=== PATIENT | female | born 1985 | race Caucasian/White ===

== ENCOUNTER 2025-04-27 15:19 | Outpatient (AMB) | payer OTHER, SELFPAY ==
--- OUTSIDE RECORDS SUMMARY | 2025-01-26 13:15 | XMS_ITS ---
Author Organization Tong Liao III, MD Address [address] [place] [address] DR VILLALPANDORACHELALYSSA [address] Care Team Providers Care Toolroom Checker Name Role Phone Dr. Tong Liao III [...] Date Provider Diagnosis Tong Liao III, MD [address] [place] [address] [place] [address] 01/26/2025 Tong Liao Essential hypertensi on I10 [...] Next Appt Details Provider Name:Tong Liao , 03/27/2026 09:30:00 AM, [address] [place] [address] [address], [place], [address], Progress Notes * LeeMIHAELARONI MiriDOB:02/1986 (39 yo F)Acc No.[id number]:01/26/2025 Progress Notes Patient: Rene Miri DEL VALLE Provider: Gretchen Liao MD :1985 A ge:39 Y S ex:Female Date:01/26/2025 Address:[address] [place] [address], [place], [id number] Subjective: * Chief Complaints: * 1 . [...] f oreign body removed left wrist , [id number] , colposcopy and Cone biopsy of cervix [...] no sisters. She has no children. 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 She is single but she is engaged [...] with the patient * Allergies: F tiarra, Truvada. Objective: * Vitals: * Examination: G eneral [...] 01/26/2025 Generated for Judy buckley/Yazmin/Missyitting on: 1 06:54 PM EDT History and Physical Notes * HPI (History [...]
--- OUTSIDE RECORDS SUMMARY | 2025-02-09 13:00 | XMS_ITS ---
Author Organization Tong Liao III, MD Address [address] [place] [address] DR VILLALPANDORACHELALYSSA [address] Care Team Providers Care Supervisor Lead Refinery Name Role Phone Dr. Tong Liao III Primary Care Provider [phone] Allergies Allergen (clinical drug ingredient) Drug/Non Drug [...] Date Provider Diagnosis Tong Liao III, MD [address] [place] [address] [place] [address] 02/09/2025 Tong Liao Essential hypertensi on I10 [...] Provider Name:Tong Liao , 03/27/2026 09:30:00 AM, [address] [place] [address] [address], [place], [address], Progress Notes * LeeMIHAELARONI DanielledebbieDOB:02/1986 (39 yo F)Acc No.[id number]:02/09/2025 Progress Notes Patient: Rene Miri DEL VALLE Provider: Gretchen Liao MD :1985 A ge:39 Y S ex:Female Date:02/09/2025 Address:[address] [place] [address], [place], [id number] Subjective: * Chief Complaints: * 1 . [...] f oreign body removed left wrist , [id number] , colposcopy and Cone biopsy of cervix [...] no sisters. She has no children. Her pupil personnel services director is in the process of testing her [...] children. 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 She is single but she is [...] 0 02/09/2025 Generated for Judy buckley/Yazmin/Missyitting on: 1 06:55 PM EDT History and Physical Notes * [...]
--- OUTSIDE RECORDS SUMMARY | 2025-03-07 07:16 | XMS_ITS ---
Author Organization Tong Liao III, MD Address [address] [place] [address] [place] [address] Care Team Providers Care Sr. Unix System Administrator Name Role Phone Dr. Tong Liao III [...] Date Provider Diagnosis Tong Liao III, MD [address] [place] [address] [place] [address] 03/07/2025 Tong Liao Essential hypertensi on I10 [...] Provider Name:Tong Liao , 03/27/2026 09:30:00 AM, [address] [place] [address] [place], [address], Progress Notes * Miri SOLERDOB:02/1986 (39 yo F)Acc No.[id number]:03/07/2025 Patient: Miri JAQUEZ :1985 A ge:39 Y S ex:Female Address:[address] [place] [address], [place], [address] * Refills Refill Levothyroxine Sodium Tablet, 150 MCG, Orally, 90 Tablet, 1 tablet in the morning on an empty stomach, Once a day, 90 days, Refills=3 * true * Date: Generated for Judy buckley/Yazmin/Missyitting on: 06:54 PM EDT
--- OUTSIDE RECORDS SUMMARY | 2025-03-24 05:00 | XMS_ITS ---
Author Organization Tong Liao III, MD Address [address] [place] [address] [place] [address] Care Team Providers Care Partner Manager Name Role Phone Dr. Tong Liao [...] Provider Speciality Internal edicine Referred Provider Neurology [facility] Referred Provider Specialty Neurology General Notes 03/28/2025 11:06:09 AM > Faxed referral and progress note Referral Priority Routine Reason Evaluate and Treat Hypothyroidism Right Thyroid Nodule Diagnosis 1 Acquired hypothyroid ism (E03.9) Diagnosis 2 Right thyroid nodule (E04.1) Referral Organization Tong Liao III, MD Referring Provider First Name Tong Referring Provider Last Name Liao Referring Provider Speciality Internal edicine Referred Provider [facility] Referred Provider Specialty Endocrinolog y General Notes 03/28/2025 11:05:37 AM > Faxed referral with progress note, 03/30/2025 03:21:29 PM > [facility] Endocrine requesting most recent labs and US. Labs and US were sent to ATTN: Orestes Referral Priority Routine REASON FOR VISIT Annual Exam Medications Medication [...] Provider Diagnosis Tong Liao III, MD [address] [place] [address] DR [place], [place] [address] 03/24/2025 Tong Liao Essential hypertensi on I10 [...] cancer (ICD-10 - Z80.3) She says the lpn rn is in the process of ordering testing [...] 03/24/2025, Evaluate and Treat Chronic Constant Migraine, [facility] 03/24/2025 03/24/2025, Evaluate and Treat Hypothyroidism Right Thyroid Nodule, [facility] Next Appt Details Follow Up: 4 Weeks, Reason: Telehealth Provider Name:Tong Liao , 03/27/2026 09:30:00 AM, [address] [place] [address] [address], [place], [address], Progress Notes * Miri SOLERDOB:02/1986 (39 yo F)Acc No.[id number]:03/24/2025 Progress Notes Patient: Miri JAQUEZ Provider: Gretchen Liao MD :1985 A ge:39 Y S ex:Female Date:03/24/2025 Address:[address] [place] [address], [facility] Subjective: * Chief Complaints: * A nnual [...] enies. * Medical History: * Surgical History: f oreign body removed left wrist [id number] colposcopy and Cone biopsy of cervix for [...] no sisters. She has no children. Her lpn rn is in the process of testing her [...] reconciled with the patient * Allergies: F Brendauvadajarrett[Allergies Verified] Objective: * Vitals: H t: 64, [...] - Z80.3 N otes :She says the lpn rn is in the process of ordering testing [...] (Free Thyroxine) Referral To:[facility] Endocr[facility] Reason:Evaluate and Treat Hypothyroidism Right Thyroid Nodule 3. O besity (BMI 30-39.9) L AB: PROFILE, RANDOM (COMPREHENSIVE METABOLIC) L AB: TSH (THYROID STIMULATING HORMONE) L AB: CBC w DIFF L AB: Free T4 (Free Thyroxine) 4. O thers Referral To:[facility] Neurology Reason:Evaluate and Treat Chronic Constant Migraine Referral To:[facility] Endocrinology Reason:Evaluate and Treat Hypothyroidism Right [...] 03/24/2025 Generated for Judy buckley/Yazmin/eTransmitting on: 1 06:55 PM EDT History and [...] Provider Not es 03/24/2025 Tong Liao Neurology [facility] Evaluate and Treat Chronic Constant Migraine 03/24/2025 Tong Liao [facility] Evaluate and Treat Hypothyroidism Right Thyroid Nodule
--- OUTSIDE RECORDS SUMMARY | 2025-04-21 13:00 | XMS_ITS ---
Author Organization Tong Liao III, MD Address [address] [place] [address] [address] [facility] [place] [address] Care Team Providers Care Stock Cutter Name Role Phone Dr. Tong Liao III Primary Care Provider REASON FOR VISIT Follow up Social History Sex Assigned At : Social History Observation Description Sex Assigned At Female Encounters Encounter Location Date Provider Diagnosis Tong Liao III, MD [address] [place] [address] [place] [address] 04/21/2025 Tong Liao Plan Of Treatment Next Appt Details Provider Name:Tong Liao , 03/27/2026 09:30:00 AM, [address] [place] [address] [place], [address], Progress Notes * Miri SOLERDOB:02/1986 (39 yo F)Acc No.[id number]:04/21/2025 Patient: Rene DEL VALLEMiri Provider: Gretchen Liao MD :1985 A ge:39 Y S ex:Female Date:04/21/2025 Address:[address], [place] Subjective: * Chief Complaints: * 1 . Follow up. * Medical History: Objective: * Vitals: Assessment: Plan: * Treatment: * Images: * The named appointment provid er may or may not be the originator of this progress note, and it is not deemed complete until electronically signed by the appointment provider. Sign off status: Pending * Provider: Gretchen Liao MD Date: Generated for Judy buckley/Yazmin/Ruslan on: 06:55 PM EDT
--- NOTE | 2025-04-27 15:23 | MHC.OFFVIS ---
Vital Signs 04/27/25 15:26 Height 5 ft 4 in Weight 194 lb 0.108 oz BMI 33.3 BP 122/72 Blood Pressure Location Lt brachial Position Sitting Pulse 72 Pulse Source Pulse Oximeter Pulse Oximetry (%) 99 Oxygen Delivery Method Room Air Intake Visit Reasons: hypothyroidism, right thyroid nodule Intake Note: Patient is here for hypothyroidism and right thyroid nodule. Racing Secretary And Handicapper Required: No Accompanied by: Self / Same As Patient Allergies metronidazole (Flagyl) Allergy (Unknown, Verified 04/27/25 15:28) pancreatitis Truvada Adverse Reaction (Unknown, Uncoded 04/27/25 15:28) vomiting Medication List - Last Reconciled 04/27/25 by Dot Arzate MD hydrochlorothiazide 25 mg PO QAM levothyroxine 150 mcg PO QAM sumatriptan succinate mg PO HPI Comments Details: 39-year-old female coming in today for initial evaluation of hypothyroidism and solitary right-sided nodule.. Hypothyroidism diagnosed in 2014 , has been on levothyroxine since then. Ultrasound thyroid 09/30/2024 showed a solitary right mid lobe 0.6 cm solid hypoechoic TR 4 lesion. Does not meet criteria for FNA or follow up. was done because she was having dysphagia. apparenlty has barium swallow earlier in 2024 whihc was normal per patient . still has intermittent dysphagia. Feels neck pressure. no voice chnages. No TFTs in the system. Currently on levothyroxine 150 mcg daily. was reduced from 200 mcg approx 3 weeks ago. takes it between 8 and 10 AM , takes with with HCTZ and propranolol. tries to separate it from food but some days she works overnight so no fixed schedule. Endorses she mostly takes it. Patient currently denies heat or cold intolerance, diarrhea or constipation, hair loss, anxiety, weight changes, mood changes, low energy, changes in appearance of eyes or vision changes, tremors, increased diaphoresis or dry skin. ?intermittent palpitations Patient denies any history of childhood neck radiation. Denies having ever used lithium, amiodarone or biotin supplements. Patient denies any family history of thyroid cancer. Brother has hypothyroidism Physical exam General: sitting comfortably in no acute distress HEENT: normocephalic/atraumatic, Neck: supple, symmetrical, no thyromegaly , no dorsocervical or supraclavicular fat pads Cardiac: normal heart sounds Pulm: normal breath sounds B/L, no added breath sounds Abd: not distended [facility] Medical History (Updated 04/27/25 @ 15:49 by Dot Arzate MD) Right thyroid nodule Hypothyroidism Surgical History H/O colonoscopy H/O left wrist surgery History of delivery Family History Mother HTN (hypertension), benign CVD (cardiovascular disease) Cancer Father CVD (cardiovascular disease) HTN (hypertension), benign Social History Alcohol intake: current Alcohol intake frequency: does not drink Patient Tobacco Use Status: Former Tobacco user Physical Exam Vital Signs: BMI result Body Mass Index 33.3 Assessment & Plan Assessment & Plan (1) Hypothyroidism: Code(s): E03.9 - Hypothyroidism, unspecified Category: Medical Qualifiers: 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 Hypothyroidism diagnosed in 2014 , has been on levothyroxine since then. No TFTs in the system. Currently on levothyroxine 150 mcg daily. was reduced from 200 mcg approx 3 weeks ago. takes it between 8 and 10 AM , takes with with HCTZ and propranolol. tries to separate it from food but some days she works overnight so no fixed schedule. Endorses she mostly takes it. At this point we will repeat her labs in about 3 weeks which would be 6 weeks since dose change. Plan: -continue levothyroxine 150 mcg daily -ordered TSH, free T4, TPO antibody levels to be done in another 3 weeks (2) Right thyroid nodule: Code(s): E04.1 - Nontoxic single thyroid nodule Category: Medical Plan: 39-year-old female with no family history of thyroid cancer with no personal history of head or neck radiation, with a new diagnosis of right-sided nodule. Ultrasound thyroid 09/30/2024 showed a solitary right mid lobe 0.6 cm solid hypoechoic TR 4 lesion. Does not meet criteria for FNA or follow up. was done because she was having dysphagia. apparenlty has barium swallow earlier in 2024 whihc was normal per patient . still has intermittent dysphagia. Feels neck pressure. no voice chnages. I explained that it is common to have thyroid nodules. About 95% of the time these nodules are benign. However if the nodule is > 1 cm in size or suspicious on ultrasound then a fine need aspiration biopsy is recommended. At this point based on the report no need for follow up for this nodule. 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
[2025-04-27 15:26] VITALS: BP 122/72; PULSE 72; O2SAT 99; BMI 33.3
--- OUTSIDE RECORDS SUMMARY | 2025-04-27 18:54 | XMS_ITS | Clinical Summary ---
Author Organization [facility] Address [address] [place] [address] Care Team Providers Care Slubber Tender Name Role Phone Tong Liao MD Primary Care Provider [phone] Allergies Active Allergy Reactions Criticality Noted Date Comments Emtricitabine-Tenofovir Df Unknown/Patie nt and Family Unable to Define Medium 08/10/2024 Metronidazole Other (See Comments),Unknown/Patient and Family Unable to Define Medium 08/10/2024 Medications levothyroxine (SYNTHROID, LEVOTHROID) 200 MCG tablet Take 200 mcg by mouth. 4 Active SUMAtriptan (IMITREX) 100 MG tablet TAKE 1 TABLET BY MOUTH TWICE DAILY AT LEAST 2 HOURS BETWEEN EACH DOSE 4 Active Semaglutide-[place]in[place] ght Management (Wegovy) 0.25 MG/0.5ML Solution Auto-injector 0.5 mL Subcutaneous once a week for four weeks 4 Active hydroCHLOROthia zide (HYDRODIURIL) 25 MG tablet Take 1 tablet by mouth every morning. Active methadone (DOLOPHINE) 10 mg/5 mL oral solution 105 ml as needed Orally Once a day Active famotidine (PEPCID) 40 MG tabletIndicatio ns:Laryngophary ngeal reflux Take 1 tablet (40 mg total) by mouth nightly. 30 tablet 3 5 Active Active Problems Problem Noted Date Diagnosed Date At risk for sexually transmi tted disease due to partner with HIV 08/10/2024 Chronic posttraumatic stress disorder 08/10/2024 Chronic recurrent major depressive disorder 07/15 Heroin dependence 08/10/2024 HTN (hypertension) 08/10/2024 Hypothyroidism 08/10/2024 Severe obesity (BMI 35.0-39.9) with comorbidity 08/10/2024 Hepatitis C antibody test positive 10/11/2013 Overview (08/10/2024): +result also on IOB bloodwork of 05/28/2022 Immunizations Immunization Administration Dates Next Due DT 02/21/1987,1986,1986 DTaP 03/17/1991,06/19/1988 Hep B, Adolescent or Pediatric 11/16/1998,1998,06/15/1998 IPV 03/17/1991, 8,02/21/1987,1986,1986 Influenza Virus Trivalent Sp lit Vaccine (MDV) IM 03/28/2018,03/23/2017 Influenza Whole 04/07/2019,03/20/2016 MMR 02/24/1998,11/22/1987 Td, Unspecified 03/30/1999 Tdap 09/06/2022,12/02/2018 Social History Tobacco Use Types Packs/Day Years Used Date Smoking Tobacco: Former Cigarettes Passive Smoke Exposure: Past Smokeless Tobacco: Never Tobacco Cessation:Counseling Given: Not Answered Alcohol Use Standard Drinks/Week Comments Never 0 (1 standard drink = 0.6 oz pur e alcohol) Comments Unknown Sex and Gender Information Value Date Recorded Sex Assigned at Female 08/02/2024 10:46 AM EST Legal Sex Female 10:01 AM EST Gender Identity Female 08/02/2024 10:46 AM EST Sexual Orientation Choose not to disclose 2024 10:46 AM EST Last Filed Vital Signs Vital Sign Reading Time Taken Comments Blood Pressure - - Pulse - - Temperature - - Respiratory Rate - - Oxygen Saturation - - Inhaled Oxygen Concentration - - Weight 89.8 kg (198 lb) 08/10/2024 10:31 AM EST Height 162.6 cm (5' 4 ) 08/10/2024 10:31 AM EST Body Mass Index 33.99 08/10/2024 10:31 AM EST Plan of Treatment Health Maintenance Due Date Last Done Comments Hepatitis C Virus Screening 1986 HIV Screening 1999 Pap Smear (Ages 21-65) 2007 Influenza Vaccine 02/11/2025 04/07/2019, , 03/23/2017, Additional history exists COVID-19 Vaccine (2024- season) 2025 06/28/2021, 08/07/2020, 07/17/2020 DTaP/Tdap/Td Vaccines (8 - Td or Tdap) 09/06/2032 09/06/2022, 12/02/2018, 03/30/1999, Additional history exists Hepatitis B Vaccines Completed 11/16/1998, 07/20/1998, 06/15/1998 HPV Vaccines (No Doses Required) Completed Pneumococcal Vaccine: Pediatric (0-5 Years) and At-Risk Patients (6 to 49 Years) Aged Out No longer eligible based on patient's age to complete this topic Insurance Care Teams Slubber Tender Relationship Specialty Start Date End Date Tong Liao MD [address] [place] [id number] PCP - General 08/10/24
--- OUTSIDE RECORDS SUMMARY | 2025-04-27 18:55 | XMS_ITS ---
Author Name [facility] Organization Unknown History of Medication Use Medication Directions Dispensed Refills Start Date End Date Stat us famotidine (PEPCID) 40 MG tablet Take 1 tablet (40 mg total) by mouth nightly. 08/10/2024 active SUMAtriptan (IMITREX) 100 MG tablet TAKE 1 TABLET BY MOUTH TWICE DAILY AT LEAST 2 HOURS BETWEEN EACH DOSE 06/21/2024 active levothyroxine (SYNTHROID, LEVOTHROID) 200 MCG tablet Take 200 mcg by mouth. 05/29/2024 active Semaglutide-Weight Management (Wegovy) 0.25 MG/0.5ML Solution Auto-injector 0.5 mL Subcutaneous once a week for four weeks 11/18/2023 active hydroCHLOROthiazide (HYDRODIURIL) 25 MG tablet Take 1 tablet by mouth every morning. active methadone (DOLOPHINE) 10 mg/5 mL oral solution 105 ml as needed Orally Once a day active Allergies Allergen Reaction Severity Comment Documented Date Source Statu s METRONIDAZOLE UNKNOWN/PATIENT AND FAMILY UNABLE TO DEFINE 08/10/2024 [facility] active EMTRICITABINE-TENOFOVI R DF UNKNOWN/PATIENT AND FAMILY UNABLE TO DEFINE [facility] Problems Problem Status Onset Date Problem Type Date of Resoluti on Source Heroin dependence active 2024-08-10 ProblemAct [facility] Chronic posttraumatic stress disorder active 2024-08-10 ProblemAct [facility] At risk for sexually transmitted disease due to partner with HIV active 2024-08-10 ProblemAct [facility] HTN (hypertension) active 2024-08-10 ProblemAct [facility] Hypothyroidism active 2024-08-[address] Hepatitis C antibody test positive active 2013-10-11 ProblemAct [facility] Chronic recurrent major depressive disorder active 2024-08-10 ProblemAct [facility] Severe obesity (BMI 35.0-39.9) with comorbidity active 2024-08-10 ProblemAct [facility] Immunizations Vaccine Date Source Lot Number Status Tdap 09/06/2022 [facility] [id number] completed Influenza Whole 04/07/2019 [facility] UNK completed [facility]ap 12/02/2018 [id number] Influenza Virus Trivalent Sp lit Vaccine (MDV) IM 03/28/2018 [facility] UNK completed Influenza Virus Trivalent Sp lit Vaccine (MDV) IM 03/23/2017 [facility] [id number] completed Influenza Whole 03/20/2016 [facility] [id number] completed Td, Unspecified 03/30/1999 [facility] UNK completed Hep B, Adolescent or Pediatric 11/16/1998 [facility] UNK completed Hep B, Adolescent or Pediatric 07/20/1998 [facility] UNK completed Hep B, Adolescent or Pediatric 06/15/1998 [facility] UNK completed MMR 02/24/1998 [facility] UNK completed DTaP 03/17/1991 [facility] UNK completed IPV 03/17/1991 [facility] UNK completed DTaP 06/19/1988 [facility] UNK completed IPV 06/19/1988 [facility] UNK completed MMR 11/22/1987 [facility] UNK completed DT 02/21/1987 [facility] UNK completed IPV 02/21/1987 [facility] UNK completed DT 1986 [facility] UNK completed IPV 1986 [facility] UNK completed DT 1986 [facility] UNK completed IPV 1986 [facility] UNK completed Encounters Encounter Type Encounter Reason Primary Diagnosis Location Date Ambulatory Post Nasal Drip Post Nasal Drip [facility] 08/10/2024 Care Team Organization Name Specialty Phone Email Start Date End [facility] 09/22/2024 09/29/2024 [facility] L[facility] 08/10/2024 [facility] 06/28/2024
--- OUTSIDE RECORDS SUMMARY | 2025-04-27 18:55 | XMS_ITS | Patient Health Record ---
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 Tong Liao III [...] Provider Speciality Internal edicine Referred Provider Neurology [facility] Referred Provider Specialty Neurology General Notes 03/28/2025 11:06:09 AM > Faxed referral and progress note Referral Priority Routine Reason Evaluate and Treat Hypothyroidism Right Thyroid Nodule Diagnosis 1 Acquired hypothyroid ism (E03.9) Diagnosis 2 Right thyroid nodule (E04.1) Referral Organization Tong Liao III, MD Referring Provider First Name Tong Referring Provider Last Name Keshawn Referring Provider Speciality Internal edicine Referred Provider [facility] Referred Provider Specialty Endocrinolog y General Notes 03/28/2025 11:05:37 AM > Faxed referral with progress note, 03/30/2025 03:21:29 PM > [facility] requesting most recent labs and US. Labs and US were sent to ATTN: Ramjellys Referral Priority Routine Medications Medication SIG (Take, Route, Frequency, Duration) Notes Start Date End Date Status Propranolol HCl 10 MG 1 tablet on an emp ty stomach Orally every 12 hrs for 30 days 03/24/2025 Active SUMAtriptan Succinate 100 MG 1 TABLET OR ALLY TWICE DAILY AT LEAST 2 HOURS BETWEEN EACH DOSE Active Multivitamin - 1 tablet Orally Once a day 01/22/2023 Active Levothyroxine Sodium 150 MCG 1 tablet in the morning on an empty stomach Orally Once a day 03/25/2024 Active hydroCHLOROthiazide 25 MG TAKE 1 TABLET BY MOUTH EVERY MORNING Active Famotidine 10 MG 1 tablet as needed Orally Twice a day 01/22/2023 Active Immunizations Vaccine Route Administration Date Status Comme nts Tdap Unknown 09/06/2022 Administered Influenza, quad Unknown 03/20/2016 Administered HPV Unknown 12/12/2016 Administered COVID PFIZER Unknown 08/07/2020 Administered MMR Unknown 12/12/2016 Administered COVID PFIZER Unknown 07/17/2020 Administered COVID- 19 Vaccine Unknown 06/28/2021 Administered Influenza, quad Unknown 04/04/2020 Administered Social History Tobacco Use: Social History Observation [...] ast year? No Points 0 Interpretation Negative Problems Problem Type SNOMED Code ICD Code Onset Dates Problem Status W/U Status Risk Notes Problem 4784887 Former smoker (Z87.891) Active confirmed We discussed her strategy for relapse prevention in times of stress and illness. She seems motivated not to smoke. 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 We reviewed her weight loss strategy. We made a plan to lose weight at a rate of one half of a pound per week through a diet restricted in fat carbohydrates and sodium combined with regular physical activity. Problem 259921761 Acquired hypothyroidism (E03.9) Active confirmed She will now begin the 150 mcg dose. Thyroid function tests will be checked in the near future. Problem 16518651 Essential hypertension (I10) Active confirmed She is tolerating the losartan well and will return in the near future to check her blood pressure.Her systolic blood pressure slightly high. She will return to the office in near future to recheck this. If necessary her medications will be adjusted. 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 Problem 075956325 Chronic migraine with aura without status migrainosus, not intractable (G43.E09) Active confirmed The requested medication will be reviewed. Problem 212916055 Right thyroid nodule (E04.1) Active confirmed She has a 6 mm right thyroid nodule which is being observed by endocrinology . It is not painful when she is free of symptoms. Vital Signs Heart Rate 89 /min 03/24/2025 Temperature 99.0 degrees Fahrenheit 03/24/2025 Blood pressure diastolic 77 mm Hg 03/24/2025 Height 64 in 03/24/2025 Blood pressure systolic 141 mm Hg 03/24/2025 Weight 189 lbs 03/24/2025 BMI 32.44 kg/m2 03/24/2025 Encounters Encounter Location Date Provider Diagnosis Tong Liao III, MD [address] [place] [address] [place] [address] 06/29/2024 Tong Liao Essential hypertensi on I10 ; Acquired hypothyroidism E03.9 ; Obesity (BMI 30-39.9) E66.9 ; Former smoker Z87.891 and 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 Tong Liao III, MD [address] [place] [address] [place] [address] 08/25/2024 Tong Liao Essential hypertensi on I10 ; Chronic migraine with aura without status migrainosus, not intractable G43.E09 ; Acquired hypothyroidism E03.9 ; Obesity (BMI 30-39.9) E66.9 ; Former smoker Z87.891 and 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 Tong Liao III, MD [address] [place] [address] [place] [address] 11/19/2024 Tong Liao Essential hypertensi on I10 ; Right thyroid nodule E04.1 ; Acquired hypothyroidism E03.9 ; Obesity (BMI 30-39.9) E66.9 and Former smoker Z87.891 Tong Liao III, MD [address] [place] [address] [place] [address] 03/24/2025 Tong Liao Essential hypertensi on I10 ; Acquired hypothyroidism E03.9 ; Obesity (BMI 30-39.9) E66.9 ; Family history of breast cancer Z80.3 ; History of intravenous drug use in remission Z87.898 ; Former smoker Z87.891 and 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 Tong Liao III, MD [address] [place] [address] [place] [address] 09/08/2024 Tong Liao III, MD [address] [place] [address] [place] [address] 11/17/2024 Tong Liao III, MD [address] [place] [address] [place] [address] 03/07/2025 Tong Liao Essential hypertensi on I10 Assessments Encounter Date Diagnosis (ICD Code) Assessment Notes Treat ment Notes Treatment Clinical Notes 06/29/2024 Acquired hypothyroidism (ICD-10 - E03.9) She has been compliant with her medication. Thyroid function tests Her free T4 to be 1.9. Her dose of levothyroxine was reduced from 200 down to 150 mcg. 06/29/2024 Essential hypertension (ICD-10 - I10) She is tolerating the losartan well and will return in the near future to check her blood pressure. 08/25/2024 Essential hypertension (ICD-10 - I10) She is tolerating the losartan well and will return in the near future to check her blood pressure. 08/25/2024 Chronic migraine wit h aura without status migrainosus, not intractable (ICD-10 - G43.E09) The requested medication will be reviewed. 11/19/2024 Essential hypertension (ICD-10 - I10) She is tolerating the losartan well and will return in the near future to check her blood pressure. 11/19/2024 Right thyroid nodule (ICD-10 - E04.1) She has a 6 mm right thyroid nodule which is being observed by endocrinology. It is not painful when she is free of symptoms. 03/24/2025 Acquired hypothyroidism (ICD-10 - E03.9) She will now begin the 150 mcg dose. Thyroid function tests will be checked in the near future. 03/24/2025 Essential hypertension (ICD-10 - I10) She is tolerating the losartan well and will return in the near future to check her blood pressure.Her systolic blood pressure slightly high. She will return to the office in near future to recheck this. If necessary her medications will be adjusted. 03/07/2025 Essential hypertension (ICD-10 - I10) She is tolerating the losartan well and will return in the near future to check her blood pressure. 06/29/2024 Obesity (BMI 30-39.9 ) (ICD-10 - E66.9) We have reviewed her diet and nutrition. We made a plan to lose weight at a rate of one half of a pound per week. 08/25/2024 Acquired hypothyroidism (ICD-10 - E03.9) She has been compliant with her medication. Thyroid function tests Her free T4 to be 1.9. Her dose of levothyroxine was reduced from 200 down to 150 mcg. 11/19/2024 Acquired hypothyroidism (ICD-10 - E03.9) She says she has been compliant with her medication and feels well. Her thyroid function tests are being managed by her uniform maker. She denies any constipation or diarrhea or tachycardia. Her voice remains within normal limits. 03/24/2025 Obesity (BMI 30-39.9 ) (ICD-10 - E66.9) She has lost 7 pounds in her body mass index is 32. We reviewed her weight loss strategy. We made a plan to lose weight at a rate of one half of a pound per week through a diet restricted in fat carbohydrates and sodium combined with regular physical activity. 06/29/2024 Former smoker (ICD-1 0 - Z87.891) We discussed her strategy for relapse prevention in times of stress and illness. She seems motivated not to smoke. 08/25/2024 Obesity (BMI 30-39.9 ) (ICD-10 - E66.9) We have reviewed her diet and nutrition. We made a plan to lose weight at a rate of one half of a pound per week. 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 The facility plans to end her methadone maintenance therapy about a month from now. She was quite concerned today that she would be given comfort medications when she no longer had the methadone. By this she meant medication to counteract any side effects or withdrawal. She anticipates significant adverse symptoms when she stops methadone. Medications used in this circumstance would be Benadryl, doxepin, clonidine, ondansetron and others. I assured her we would use noncontrolled substances to try to control any significant symptom she had. 08/25/2024 Former smoker (ICD-1 0 - Z87.891) We discussed her strategy for relapse prevention in times of stress and illness. She seems motivated not to smoke. 11/19/2024 Former smoker (ICD-1 0 - Z87.891) We discussed her strategy for relapse prevention in times of stress and illness. She seems motivated not to smoke. 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 08/25/2024 Methadone maintenanc e therapy patient (ICD-10 - F11.20) He continues on the methadone and is doing well.She is down to 9 mg a day. The facility plans to end her methadone maintenance therapy about a month from now. She was quite concerned today that she would be given comfort medications when she no longer had the methadone. By this she meant medication to counteract any side effects or withdrawal. She anticipates significant adverse symptoms when she stops methadone. Medications used in this circumstance would be Benadryl, doxepin, clonidine, ondansetron and others. I assured her we would use noncontrolled substances to try to control any significant symptom she had. 03/24/2025 Former smoker (ICD-1 0 - Z87.891) We discussed her strategy for relapse prevention in times of stress and illness. She seems motivated not to smoke. 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 Plan Of Treatment Pending Test Test Name Order Date PROFILE, FASTING (COMPREHENSIVE METABOLI C) 12/31/2019 PROFILE, FASTING (COMPREHENSIVE METABOLI C) 01/26/2024 PROFILE, FASTING (COMPREHENSIVE METABOLI C) 01/03/2022 PROFILE, FASTING (COMPREHENSIVE METABOLI C) 06/11/2023 PROFILE, FASTING (COMPREHENSIVE METABOLI C) 11/19/2024 PROFILE, FASTING (COMPREHENSIVE METABOLI C) 07/19/2020 PROFILE, FASTING (COMPREHENSIVE METABOLI C) 04/18/2020 PROFILE, RANDOM (COMPREHENSIVE METABOLIC ) 01/22/2023 PROFILE, RANDOM (COMPREHENSIVE METABOLIC ) 03/06/2023 PROFILE, RANDOM (COMPREHENSIVE METABOLIC ) 11/10/2019 PROFILE, RANDOM (COMPREHENSIVE METABOLIC ) 01/16/2022 PROFILE, RANDOM (COMPREHENSIVE METABOLIC ) 03/24/2025 PROFILE, RANDOM (COMPREHENSIVE METABOLIC ) 02/12/2023 LIPID PANEL 07/19/2020 LIPID PANEL 04/18/2020 LIPID PANEL 12/31/2019 FREE T4 (FT4) 01/22/2023 FREE T4 (FT4) 07/19/2020 FREE T4 (FT4) 04/18/2020 FREE T4 (FT4) 03/06/2023 FREE T4 (FT4) 01/03/2022 FREE T4 (FT4) 11/10/2019 FREE T4 (FT4) 02/12/2023 TSH (THYROID STIMULATING HORMONE) 2022 TSH (THYROID STIMULATING HORMONE) 2022 TSH (THYROID STIMULATING HORMONE) 2020 TSH (THYROID STIMULATING HORMONE) 2019 TSH (THYROID STIMULATING HORMONE) 2023 TSH (THYROID STIMULATING HORMONE) 2022 TSH (THYROID STIMULATING HORMONE) 2022 TSH (THYROID STIMULATING HORMONE) 2021 TSH (THYROID STIMULATING HORMONE) 2019 TSH (THYROID STIMULATING HORMONE) 2024 TSH (THYROID STIMULATING HORMONE) 2024 CBC w DIFF 01/03/2022 CBC w DIFF 11/10/2019 CBC w DIFF 03/24/2025 CBC w DIFF 11/19/2024 CBC w DIFF 02/12/2023 CBC w DIFF 01/22/2023 CBC w DIFF 07/19/2020 CBC w DIFF 04/18/2020 CBC w DIFF 01/16/2022 CBC w DIFF 12/31/2019 CBC w DIFF 06/11/2023 CBC w DIFF 03/06/2023 SED RATE (ESR) 11/10/2019 SED RATE (ESR) 11/17/2020 MONO TEST (HETEROPHILE AB) 01/16/2022 SPUTUM CULTURE AND GRAM STAIN 01/16/2022 XR BARIUM SWALLOW-ESOPHAGUS 04/22/2024 XR HAND RT 08/10/2019 CBC WITH AUTO DIFF 01/26/2024 Lipid Panel 01/26/2024 Lipid Panel 06/11/2023 Lipid Panel 01/03/2022 Lipid Panel 11/19/2024 Vitamin D 25-OH Total 01/03/2022 Free T4 (Free Thyroxine) 01/26/2024 Free T4 (Free Thyroxine) 06/11/2023 Free T4 (Free Thyroxine) 03/24/2025 Free T4 (Free Thyroxine) 11/19/2024 HIV Ab/Ag 01/26/2024 Next Appt Details Provider Name:Tong Liao , 03/27/2026 09:30:00 AM, [address] [place] [address] DR, MARISOL [address]ana, [place], [address], Insurance Providers Payer Name Payer Address Payer Phone Subscriber Number Group Number Insured Name Patient Relationship to Insured Coverage Start Date Coverage End Date [facility] [address] [facility] [phone] [id number] Miri Max Self - patient is the insured Medical (General) History Medical History History ICD Code Hypertension I10 Hypothyroidism E03.9 Abnormal cervical Papanicolaou smear, un specified abnormal pap finding R87.619 Chronic constipation K59.00 IVDU in the past now recovering methadone maintenance essential hypertension fracture right elbow maternal history of breast cancer obesity HIV-positive fiance right hand pain Surgical History Surgery Date(Month/Year) No history 11/27/2022 colposcopy and Cone biopsy of cervix for abnormal Pap smear [id number] foreign body removed left wrist Hospitalization History Reason Date(Month/Year) No history
--- OUTSIDE RECORDS SUMMARY | 2025-04-27 18:56 | XMS_ITS | Data Portability ---
Author Organization [place] [facility], [facility] Address [address] [place] [address] Assessment No assessment recorded. Plan of Treatment Reminders Order Date Submit Date Provider Last Modified By Organization Details Last Modified Time Details Appointments None record ed. Lab None record ed. Referral None record ed. Procedures None record ed. Surgeries None record ed. Imaging None record ed. Medication Orders None record ed. Patient TargetsNo targets recorded. Patient InstructionsNo instructions recorded. Reason for Referral None Reported. Medical Equipment None Reported. Vitals None Recorded Social History None recorded. Functional Status None recorded. Mental Status None recorded. Family History Nothing Reported. Medical History No medical history recorded. Gynecological HistoryNo gynecological history recorded. Obstetrics History GPAL:G 0 P 0 0 0 0 Immunizations Vaccine Type Date Status Note Provider Nam e and Address Organization Details Recorded Time HPV, unspecified formulation 7 completed Not Available [facility] 05/18/2011 03:16:44 Past Encounters Encounter ID Performer Location Encounter Start Date Encounter Closed Date Diagnosis/Indication Diagnosis SNOMED-CT Code Diagnosis ICD10 Code Diagnosis IMO Codes Diagnosis Note [id number] _hpv Nurse Consult [facility] [address] [place] [address] 03/26/2007 14:40:53 03/26/2007 14:53:20 Health Concerns Section Related Observation LastModified by Organization Detai ls LastModified Time None Recorded Concern Status LastModified by Organization Details LastModified Time None Recorded Advance Directives Directive None Recorded Payers Insurance Date Sequence Insurance Name Policy Number Policy Hendricks Covered Member ID Hendricks Member ID Guarantor Name 03/26/2007 1 *SELF PAY* Be rnard D'Agostino 01/18/2021 1 [place] [facility] Miri Wilder [id number] Jose D'Agostino OBGyn Episode No OBEpisode recorded.
== END 2025-04-27 15:48 | disposition home or self-care (01) ==
LOC: HO.ENCR 15:19
PROVIDERS: PCP Internal Medicine Medical Oncology; Visit Provider Student in an Organized Health Care Education/Training Program
DX: E06.3 Autoimmune thyroiditis (principal); E04.1 Nontoxic single thyroid nodule
CPT/HCPCS: 99204

== ENCOUNTER 2025-05-05 11:11 | Outpatient (AMB) | payer OTHER, SELFPAY ==
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
[2025-05-05 11:23] VITALS: BP 128/88; PULSE 82; RESP 16; O2SAT 98; BMI 32.6
--- OUTSIDE RECORDS SUMMARY | 2025-05-05 14:07 | XMS_ITS | Encounter Summary ---
Author Organization [facility] Address [id number] [place] [address] Care Team Providers Care Roll Former Name Role Phone Tong Liao MD Primary Care Provider [phone] Encounter Details Date Type Department Care Team (Latest Contact Info) Description 12/23/2024 Lab Requisition [facility] 299 [facility] [place] [address] Darion Lance MD [address] [address] Encounter for screening for infections with a predominantly sexual mode of transmission Social History Tobacco Use Types Packs/Day Years Used Date Smoking Tobacco: Never Assessed Comments Unknown Sex and Gender Information Value Date Recorded Sex Assigned at Not on file Legal Sex Female 2:45 PM EST Gender Identity Not on file Sexual Orientation Not on file documented as of this encounter Plan of Treatment Not on file documented as of this encounter Procedures Procedure Name Priority Date/Time Associated Diagnosis Comments CHLAMYDIA TRACHOMATIS AND NEISSERIA GONORRHOEAE PCR Routine 12/23/2024 12:00 AM EDT Encounter for screening for infections with a predominantly sexual mode of transmission documented in this encounter Results * Chlamydia trachomatis and Neisseria gonorrhoeae molecular study (12/23/2024 12:00 AM EDT) Neisseria gonorrhoeae PCR Negative Negative LAB MOLECULAR DIAGNOSTICS METHOD 12/23/2024 3:43 PM EDT [facility] Chlamydia trachomatis PCR Negative Negative LAB MOLECULAR DIAGNOSTICS METHOD 12/23/2024 3:43 PM EDT [facility] Swab Cervix uteri structure / Unknown 12/23/2024 12/23/2024 12:44 PM EDT us Darion Lance MD LAB MICROBIOLOGY - GENERAL ORD ERABLES Final Result [facility] [address] [place] [address], documented in this encounter Visit Diagnoses Diagnosis Encounter for screening for infections with a predominantly sexual mode of transmission documented in this encounter Care Teams Roll Former Relationship Specialty Start Date End Date Tong Liao MD PCP - General Oncology 01/20/25 documented as of this encounter
--- OUTSIDE RECORDS SUMMARY | 2025-05-05 14:07 | XMS_ITS | Clinical Summary ---
Author Organization 299 [facility] Address [address] [place] [address] Phone Care Team Providers Care Cage Clerk Name Role Phone Tong Liao MD Primary Care Provider [phone] Social History Tobacco Use Types Packs/Day Years Used Date Smoking Tobacco: Never Assessed Comments Unknown Sex and Gender Information Value Date Recorded Sex Assigned at Not on file Legal Sex Female 2:45 PM EST Gender Identity Not on file Sexual Orientation Not on file Plan of Treatment Health Maintenance Due Date Last Done Comments Hepatitis A Vaccines (1 of 2 - Risk 2-dose series) 2005 HPV Vaccines (2 - 3-dose SCDM series) 01/09/2017 12/12/2016 Depression Screening 07/14/2024 Cholesterol Screening (Lipid Panel) 12/23/2024 Hypertension/CHF/CAD Annual BMP Blood Test 12/23/2024 Social Influencers of Health Screening 12/23/2024 COVID-19 Vaccine ( season) 2025 06/28/2021, 08/07/2020, 07/17/2020 Influenza Vaccine (#1) 2025 , 04/07/2019, 04/07/2019, Additional history exists Cervical Cancer Screening: HPV 12/23/2029 12/23/2024 DTaP,Tdap,and Td Vaccines (9 - Td or Tdap) 09/06/2032 09/06/2022, 12/02/2018, 03/30/1999, Additional history exists RSV Immunization Adult Patients (1 - 1-dose 75+ series) 2061 IPV Vaccines Completed 03/17/1991, 01/1988, 02/21/1987, Additional history exists Hepatitis B Vaccines Completed 12/12/2016, 11/16/1998, 07/20/1998, Additional history exists MMR Vaccines Completed 12/12/2016, 02/11, 11/22/1987 HIV Screening Completed 12/23/2024 Hepatitis C Screening Completed 12/23/2024 HIB Vaccines Aged Out No longer eligi ble based on patient's age to complete this topic Meningococcal ACWY Vaccine Aged Out N o longer eligible based on patient's age to complete this topic Meningococcal B Vaccine Aged Out No l onger eligible based on patient's age to complete this topic Pneumococcal Vaccine: Pediatrics (0 to 5 Years) and At-Risk Patients (6 to 49 Years) Aged Out No longer eligible based on patient's age to complete this topic RSV Immunization Patients Under 20 months Aged Out No longer eligible based on patient's age to complete this topic Varicella Vaccines Aged Out No longer eligible based on patient's age to complete this topic Procedures Procedure Name Priority Date/Time Associated Diagnosis Comments HEPATITIS C ANTIBODY Routine 12/23/2024 9:56 AM EDT Venereal disease contact HIV 1, 2 ANTIBODY, P24 ANTIGEN WITH REFLEX TO DIFFERENTIATION Routine 12/23/2024 9:56 AM EDT Venereal disease contact HPV WITH REFLEX GENOTYPE Routine 12/23/2024 12:00 AM EDT Encounter for gynecological examination (general) (routine) without abnormal findings from Last 3 Months or Most Recently Relevant to Health Maintenance Results * (ABNORMAL) Hepatitis C antibody (12/23/2024 9:56 AM EDT) Hepatitis C Antibody Positive (A) Negative LAB CHEMISTRY METHOD 12/23/2024 12:12 PM EDT [facility] Comment:If confirmation of t his positive HCV Ab screening test is needed, please redraw and order HCV Viral Load. Note--> This test may not be added on due to different specimen requirements. Blood Venous blood specimen / Unknown Venipuncture / Unknown 12/23/2024 9:56 AM EDT 12/23/2024 10:13 AM EDT us Darion Lance MD LAB BLOOD ORDERABLES Final Res ult Performing Organization Address [facility]/ZIP Co de Phone Number [facility] [address] [place] [address], [place] [phone] * HIV 1,2 antibody, p24 antigen with reflex to differentiation (12/23/2024 9:56 AM EDT) HIV Combo AB/AG Negative Negative LAB CHEMISTRY METHOD 12/23/2024 12:12 PM EDT [facility] Blood Venous blood specimen / Unknown Venipuncture / Unknown 12/23/2024 9:56 AM EDT 12/23/2024 10:13 AM EDT Narrative [facility] - 12/23/2024 12:12 PM EDT This assay is a 4th generation assay allowing for earlier detection of HIV infection by detecting the presence of the HIV-1 p24 antigen as well as the traditional antibodies to HIV type 1 (including group O) and type 2. Use of a 4th generation assay is the current CDC recommendation for HIV screening. us Darion Lance MD LAB BLOOD ORDERABLES Final Res ult Performing Organization Address [facility] Co de Phone Number [facility] [address] [place] [address], [place] [phone] * HPV with reflex genotype (12/23/2024 12:00 AM EDT) HPV Negative Negative LAB MICROBIOLOGY METHOD 12/29/2024 3:28 PM EDT [facility] Brushing/Spatula Cervix uteri structure / Unknown 12/23/2024 12/28/2024 3:14 PM EDT us Darion Lance MD LAB MOLECULAR DIAGNOSTICS STEPHANIE NGUYEN Final Result Performing Organization Address [facility]/ZIP Co de Phone Number [facility] [address] [place] [address], [place] [phone] from Last 3 Months or Most Recently Relevant to Health Maintenance Insurance [facility] [place] [address] [employer] [place] [employer]AGE Care Teams Cage Clerk Relationship Specialty Start Date End Date Tong Liao MD PCP - General Oncology 01/20/25
--- OUTSIDE RECORDS SUMMARY | 2025-05-05 14:07 | XMS_ITS | Encounter Summary ---
Author Organization [facility] Address [address] [place] [phone] Care Team Providers Care Payroll Services Analyst Name Role Phone Tong Liao MD Primary Care Provider [phone] Encounter Details Date Type Department Care Team (Latest Contact Info) Description 12/24/2024 Lab Requisition [facility] Lab 299 [facility] [place] [address] Darion Lance MD [address] [address] Encounter for gynecological examination (general) (routine) without abnormal findings Social History Tobacco Use Types Packs/Day Years [...] Procedure Name Priority Date/Time Associated Diagnosis Comments HPV WITH REFLEX GENOTYPE Routine 12/23/2024 12:00 AM EDT Encounter for gynecological examination (general) (routine) without abnormal findings PAP SMEAR Routine 12/23/2024 12:00 AM EDT Encounter for gynecological examination (general) (routine) without abnormal findings documented in this encounter Results * HPV with reflex genotype (12/23/2024 12:00 AM EDT) HPV Negative Negative LAB MICROBIOLOGY METHOD 12/29/2024 3:28 PM EDT [facility] Brushing/Spatula Cervix uteri structure / Unknown 12/23/2024 12/28/2024 3:14 PM EDT us Darion Lance MD LAB MOLECULAR DIAGNOSTICS STEPHANIE NGUYEN Final Result [facility] [address] [place] [address], * (ABNORMAL) Pap smear (12/23/2024 12:00 AM EDT) Interpretation Atypical squamous cells of undetermined significance(A) 12/28/2024 3:14 PM EDT [facility] General Categorization Epithelial cell abnormality, see interpretation 12/28/2024 3:14 PM EDT [facility] LMP 12/13/2024 12/28/2024 3:14 PM EDT [facility] Specimen Adequacy Satisfactory for evaluation, endocervical/tra nsformation zone component present 12/28/2024 3:14 PM EDT [facility] Pap Methodology Liquid Based Pap Test 12/28/2024 3:14 PM EDT [facility] Disclaimer The Pap test is a screening test which carries an inherent false negative rate. These test results should be correlated with the patient's clinical findings and history. This Pap test was processed using an automated screening system. Technical cytopathology services provided by [facility], at [address] [place] [id number] (CLIA # [id number]/Leona Leyva MD, Ends Breakage Clerk.) 12/28/2024 3:14 PM EDT [facility] Console Pap Interpretation Reported 12/28/2024 3:14 PM T [facility] Brushing/Spatula Cervix uteri structure / Unknown 12/23/2024 12/24/2024 7:16 AM EDT us Darion Lance MD LAB CYTOLOGY ORDERABLES Final Result [facility] [address] [place] [address], documented in this encounter Visit Diagnoses Diagnosis Encounter for gynecological examination (general) (routine) without abnormal findings documented in this encounter Care Teams Payroll Services Analyst Relationship Specialty Start Date End Date Tong Liao MD PCP - General Oncology 01/20/25 documented as of this encounter
--- OUTSIDE RECORDS SUMMARY | 2025-05-05 14:07 | XMS_ITS | Clinical Summary ---
Author Organization [facility] Address [address] [place] [address] Care Team Providers Care Replenishment Analyst Name Role Phone Tong Liao MD Primary Care Provider [phone] Allergies Active Allergy Reactions Criticality Noted Date [...] to complete this topic Insurance Care Teams Replenishment Analyst Relationship Specialty Start Date End Date Tong Liao MD [address] [place] [phone] PCP - General 08/10/24
== END 2025-05-05 11:57 | disposition home or self-care (01) ==
LOC: HO.HSM 11:11
PROVIDERS: PCP Internal Medicine Medical Oncology; Visit Provider Nurse Practitioner
DX: R51.9 Headache, unspecified (principal); G43.009 Migraine without aura, not intractable, without status migrainosus; G44.209 Tension-type headache, unspecified, not intractable
CPT/HCPCS: 99204

== ENCOUNTER 2025-06-06 18:29 | Outpatient (REF) | payer OTHER, SELFPAY ==
--- NOTE | ~2025-06-06 | MR_ITS ---
EXAMINATION: MR BRAIN WITHOUT IV CONTRAST HISTORY: R51.9 - Headache, unspecified TECHNIQUE: Sagittal T1, and axial T1, FLAIR, T2, gradient echo, and diffusion weighted MR images of the brain were obtained. COMPARISON: There are no prior studies available for comparison. FINDINGS: The pituitary is normal in size. The cerebellar tonsils are normally located. The brain parenchyma is unremarkable, demonstrating normal zhu/white differentiation. No foci of abnormal signal intensity are identified. The ventricular system is normal in size and configuration. There is no mass effect or midline shift. No intra or extra-axial fluid collections are identified. There are no foci of restricted diffusion. Normal vascular flow voids are noted in the basilar and carotid arteries. The visualized paranasal sinuses are clear. MR/MR head/brain wo con IMPRESSION: Unremarkable MRI of the brain without contrast. Electronically signed by: Tong Guadalupe MD 06/07/2025 07:02 AM CAT
--- OUTSIDE RECORDS SUMMARY | 2025-06-06 20:36 | XMS_ITS | Encounter Summary ---
Author Organization [facility] Address [address] [place] [address] Care Team Providers Care Riffler Tender Name Role Phone Tong Liao MD Primary Care Provider [phone] Encounter Details Date Type Department Care Team (Latest Contact Info) Description 12/23/[address] [facility] 299 [facility] [place] [address] Darion Lance MD [address] [address] Encounter for screening for infections [...] MOLECULAR DIAGNOSTICS METHOD 12/23/2024 3:43 PM EDT [facility] Chlamydia trachomatis PCR Negative Negative LAB MOLECULAR DIAGNOSTICS METHOD 12/23/2024 3:43 PM EDT [facility] Swab Cervix uteri structure / Unknown 12/23/2024 12/23/2024 12:44 PM EDT us Darion Lance MD LAB MICROBIOLOGY - GENERAL ORD ERABLES Final Result [facility]) [facility] [address] [place] [address], documented in this encounter Visit Diagnoses Diagnosis Encounter for screening for infections with a predominantly sexual mode of transmission documented in this encounter Care Teams Riffler Tender Relationship Specialty Start Date End Date Tong Liao MD PCP - General Oncology 01/20/25 documented as of this encounter
--- OUTSIDE RECORDS SUMMARY | 2025-06-06 20:36 | XMS_ITS | Encounter Summary ---
Author Organization [facility] Address [address] [place] [phone] Care Team Providers Care Chemical Pathologist Name Role Phone Tong Liao MD Primary Care Provider [phone] Encounter Details Date Type Department Care Team (Latest Contact Info) Description 12/24/2024 Lab Requisition [facility] [address] [facility] [place] [address] Darion Lance MD [address] [address] Encounter for gynecological examination (general) [...] LAB MICROBIOLOGY METHOD 12/29/2024 3:28 PM EDT [facility] Brushing/Spatula Cervix uteri structure / Unknown 12/23/2024 12/28/2024 3:14 PM EDT us Darion Lance MD LAB MOLECULAR DIAGNOSTICS STEPHANIE NGUYEN Final Result [facility] [address] [place] [address], * (ABNORMAL) Pap smear (12/23/2024 12:00 AM EDT) Interpretation Atypical squamous cells of undetermined significance(A) 12/28/2024 3:14 PM EDT [facility] General Categorization Epithelial cell abnormality, see interpretation 12/28/2024 3:14 PM EDT [facility] LMP 12/13/2024 12/28/2024 3:14 PM EDT [facility] Specimen Adequacy Satisfactory for evaluation, endocervical/tra nsformation zone component present 12/28/2024 3:14 PM EDT [facility] Pap Methodology Liquid Based Pap Test 12/28/2024 3:14 PM EDT [facility] Disclaimer The Pap test is a screening test which carries an inherent false negative rate. These test results should be correlated with the patient's clinical findings and history. This Pap test was processed using an automated screening system. Technical cytopathology services provided by [facility], at [address] [place] [id number] (CLIA # [id number]/Leona Leyva MD, Fitter Mechanic.) 12/28/2024 3:14 PM EDT [facility] Console Pap Interpretation Reported 12/28/2024 3:14 PM T [facility] Brushing/Spatula Cervix uteri structure / Unknown 12/23/2024 12/24/2024 7:16 AM EDT us Darion Lance MD LAB CYTOLOGY ORDERABLES Final Result [facility] [address] [place] [address], documented in this encounter Visit Diagnoses Diagnosis Encounter for gynecological examination (general) (routine) without abnormal findings documented in this encounter Care Teams Chemical Pathologist Relationship Specialty Start Date End Date Tong Liao MD PCP - General Oncology 01/20/25 documented as of this encounter
--- OUTSIDE RECORDS SUMMARY | 2025-06-06 20:37 | XMS_ITS | Clinical Summary ---
Author Organization Formerly [facility] Address [address] [place] [address] Care Team Providers Care Internet Technology Manager Name Role Phone Tong Liao MD Primary Care Provider [phone] Allergies Active Allergy Reactions Criticality Noted Date [...] to complete this topic Insurance Care Teams Internet Technology Manager Relationship Specialty Start Date End Date Tong Liao MD [address] [place] [id number] PCP - General 08/10/24
--- OUTSIDE RECORDS SUMMARY | 2025-06-06 20:37 | XMS_ITS | Data Portability ---
Author Organization [place] - [facility], [facility] Address [address] [place] [address] Assessment No assessment recorded. Plan of Treatment [...] HPV, unspecified formulation 7 completed Not Available [facility] 05/18/2011 03:16:44 Past Encounters Encounter ID Performer Location Encounter Start Date Encounter Closed Date Diagnosis/Indication Diagnosis SNOMED-CT Code Diagnosis ICD10 Code Diagnosis IMO Codes Diagnosis Note [id number] _hpv Nurse Consult [facility] [address] [place] [address] 03/26/2007 14:40:53 03/26/2007 14:53:20 Health Concerns Section Related Observation LastModified by Organization Detai ls LastModified Time None Recorded Concern Status LastModified by Organization Details LastModified Time None Recorded Advance Directives Directive None Recorded Payers Insurance Date Sequence Insurance Name Policy Number Policy Hendricks Covered Member ID Hendricks Member ID Guarantor Name 03/26/2007 1 *SELF PAY* Be rnard D'Agostino 01/18/2021 1 MEDICAID-[place]: [facility] Miri Wilder [id number] Jose D'Agostino OBGyn Episode No OBEpisode recorded.
--- OUTSIDE RECORDS SUMMARY | 2025-06-06 20:37 | XMS_ITS | Clinical Summary ---
Author Organization [facility] Address [address] [place] [address] Phone Care Team Providers Care Computer Customer Support Specialist Name Role Phone Tong Liao MD Primary Care Provider [phone] Social History Tobacco Use Types Packs/Day Years [...] LAB CHEMISTRY METHOD 12/23/2024 12:12 PM EDT [facility] Comment:If confirmation of t his [...] ORDERABLES Final Res ult Performing Organization Address [facility]/ZIP Co de Phone Number [facility] [address] [place] [address], [place] [phone] * HIV 1,2 antibody, p24 antigen with reflex to differentiation (12/23/2024 9:56 AM EDT) HIV Combo AB/AG Negative Negative LAB CHEMISTRY METHOD 12/23/2024 12:12 PM EDT [facility] Blood Venous blood specimen / Unknown Venipuncture / Unknown 12/23/2024 9:56 AM EDT 12/23/2024 10:13 AM EDT Narrative [facility] - 12/23/2024 12:12 PM EDT [...] ORDERABLES Final Res ult Performing Organization Address [facility] Co de Phone Number [facility] [address] [place] [address], [place] [phone] * HPV with reflex genotype (12/23/2024 12:00 AM EDT) HPV Negative Negative LAB MICROBIOLOGY METHOD 12/29/2024 3:28 PM EDT [facility] Brushing/Spatula Cervix uteri structure / Unknown 12/23/2024 12/28/2024 3:14 PM EDT us Darion Lance MD LAB MOLECULAR DIAGNOSTICS STEPHANIE NGUYEN Final Result Performing Organization Address [facility]/ZIP Co de Phone Number [facility] [address] [place] [address], [place] [phone] from Last 3 Months or Most Recently Relevant to Health Maintenance Insurance [facility] [place] [phone] [employer] [place] MEDICA[employer] ADVANTAGE Care Teams Computer Customer Support Specialist Relationship Specialty Start Date End Date Tong Liao MD PCP - General Oncology 01/20/25
== END 2025-06-06 18:30 | disposition home or self-care (01) ==
LOC: HO.MRI 18:29
PROVIDERS: PCP Internal Medicine Medical Oncology; Visit Provider Nurse Practitioner
DX: R51.9 Headache, unspecified (principal)
CPT/HCPCS: 70551

== ENCOUNTER → 2025-06-06 18:40 | Outpatient (BNV) | payer OTHER, SELFPAY | PROVIDERS: PCP Internal Medicine Medical Oncology; Visit Provider Radiology Diagnostic Radiology | DX: R51.9 Headache, unspecified (principal) | CPT/HCPCS: 70551 ==

== ENCOUNTER 2025-06-16 11:07 | Outpatient (REF) | payer OTHER, SELFPAY ==
--- NOTE | ~2025-06-16 | XR_ITS ---
EXAMINATION: XR LUMBOSACRAL SPINE CLINICAL INFORMATION: PAIN COMPARISON: None available. TECHNIQUE: AP and lateral views FINDINGS: No acute cortical disruption or malalignment. Small marginal osteophyte formation and endplate sclerosis pronounced at L1- 2. No lytic or blastic lesions. XR/XR lumbar spine 2-3V IMPRESSION: Mild multilevel spondylosis pronounced at L1-2. Electronically signed by: Roger Suarez MD 06/16/2025 11:29 AM [facility]
--- NOTE | ~2025-06-16 | XR_ITS ---
EXAMINATION: XR SACRUM COCCYX 2 OR MORE VIEWS HISTORY: PAIN COMPARISON: There are no prior studies available for comparison. FINDINGS: Three views of the sacrum and coccyx are submitted. Osseous mineralization is normal. There is no fracture or lytic lesion. XR/XR sacrum coccyx min 2V IMPRESSION: Unremarkable examination of the sacrum and coccyx. Electronically signed by: Tong Guadalupe MD 06/16/2025 11:30 AM [facility]
== END 2025-06-16 11:08 | disposition home or self-care (01) ==
LOC: HO.XRAY 11:07
PROVIDERS: PCP Internal Medicine Medical Oncology; Visit Provider Internal Medicine Medical Oncology
DX: M54.50 Low back pain, unspecified (principal)
CPT/HCPCS: 72100; 72220

== ENCOUNTER → 2025-06-16 11:19 | Outpatient (BNV) | payer OTHER, SELFPAY | PROVIDERS: PCP Internal Medicine Medical Oncology; Visit Provider Radiology Diagnostic Radiology | DX: M47.816 Spondylosis without myelopathy or radiculopathy, lumbar region (principal); M53.3 Sacrococcygeal disorders, not elsewhere classified | CPT/HCPCS: 72100; 72220 ==

== ENCOUNTER 2025-06-30 11:02 | Outpatient (AMB) | payer OTHER, SELFPAY ==
--- OUTSIDE RECORDS SUMMARY | 2024-09-08 10:47 | XMS_ITS ---
Author Organization Tong Liao III, MD Address [address] [place] [address] [place] [address] Care Team Providers Care School Janitor Name Role Phone Dr. Tong Liao III Primary Care Provider REASON FOR VISIT Rx request Medications Medication SIG (Take, Route, Frequency, Duration) Notes Start Date End Date Status SUMAtriptan Succinate 100 MG 1 TABLET ORALLY TWICE DAILY AT LEAST 2 HOURS BETWEEN EACH DOSE for 25 days Active Social History Sex Assigned At : Social History Observation Description Sex Assigned At Female Encounters Encounter Location Date Provider Diagnosis Tong Liao III, MD [address] [place] [address] [place] [address] 09/08/2024 Tong Liao Plan Of Treatment Medication Medication Name Sig Start Date Stop Date Notes SUMAtriptan Succinate 100 MG 1 TABLET OR ALLY TWICE DAILY AT LEAST 2 HOURS BETWEEN EACH DOSE for 25 days Next Appt Details Provider Name:Tong Liao , 08/04/2025 09:45:00 AM, [address] [place] [address] [place], [address], Provider Name:Tong Liao , 03/27/2026 09:30:00 AM, [address] [place] [address] [place], [address], Progress Notes * Miri SOLERDOB:02/1986 (39 yo F)Acc No.[id number]:09/08/2024 Patient: Miri JAQUEZ :1985 A ge:39 Y S ex:Female Address:[address] [place] [address], [place], [address] * Refills Refill SUMAtriptan Succinate Tablet, 100 MG, ORALLY, 50, 1 TABLET, TWICE DAILY AT LEAST 2 HOURS BETWEEN EACH DOSE, 25 days, Refills=11 * true * Date: Generated for Judy buckley/Yazmin/Ruslan on: 08/31/2024 02:25 PM EST
--- OUTSIDE RECORDS SUMMARY | 2024-11-17 09:50 | XMS_ITS ---
Author Organization Tong Liao III, MD Address [address] [place] [address] [place] [address] Care Team Providers Care Screw Supervisor Name Role Phone Dr. Tong Liao III Primary Care Provider REASON FOR VISIT discuss ultrasound results Social History Sex Assigned At : Social History Observation Description Sex Assigned At Female Encounters Encounter Location Date Provider Diagnosis Tong Liao III, MD [address] [place] [address] [address] [facility] [place] [address] 11/17/2024 Tong Liao Plan Of Treatment Next Appt Details Provider Name:Tong Liao , 08/04/2025 09:45:00 AM, [address] [place] [address] [place], [address], Provider Name:Tong Liao , 03/27/2026 09:30:00 AM, [address] [place] [address] [place], [address], Progress Notes * Miri SOLERDOB:02/1986 (39 yo F)Acc No.[id number]:11/17/2024 Patient: Miri JAQUEZ :1985 A ge:39 Y S ex:Female Address:[address], [place], [address] * true * Date: Generated for Printi ina/Ceceliag/eTransmitting on: 08/31/2024 02:24 PM EST
--- OUTSIDE RECORDS SUMMARY | 2024-11-19 05:00 | XMS_ITS ---
Author Organization Tong Liao III, MD Address [address] [place] [address] [address] [place] [address] Care Team Providers Care Equity Research Associate Name Role Phone Dr. Tong Liao III Primary Care Provider Allergies Allergen (clinical drug ingredient) Drug/Non Drug Allergy documented on EMR Reaction Allergy Type Onset Date Status emtricitabine / tenofovir disoproxil Truvada Unknown Drug Allergy Active metronidazole Flagyl Unknown Drug Allergy Act laurie REASON FOR VISIT 6 mm thyroid nodule mid right lobe, Hypertension, Hypothyroid, Chronic migraines, Methadone maintenance Medications Medication SIG (Take, Route, Frequency, Duration) Notes Start Date End Date Status Methadone HCl 10 MG/5ML 105 ml as needed Orally Once a day 96 mg/d Active hydroCHLOROthiazide 25 MG TAKE 1 TABLET BY MOUTH EVERY MORNING Active Wegovy 0.25 MG/0.5ML 0.5 mL Subcutaneous once a week for four weeks 11/18/2023 Active SUMAtriptan Succinate 100 MG 1 TABLET OR ALLY TWICE DAILY AT LEAST 2 HOURS BETWEEN EACH DOSE Active Levothyroxine Sodium 150 MCG 1 tablet in the morning on an empty stomach Orally Once a day 03/25/2024 Active Multivitamin - 1 tablet Orally Once a day 01/22/2023 Active Famotidine 10 MG 1 tablet as needed Orally Twice a day 01/22/2023 Active Social History Tobacco Use: Social History Observation Description Date Details (start date - stop date) Former Smoker NA - NA Sex Assigned At : Social History Observation Description Sex Assigned At Female Tobacco Use/Smoking Question Answer Notes Patient is a former smoker How long has it been since you last smoked? 5-10 years Additional Findings: Tobacco Non-User Ex-cigaret te smoker Problems Problem Type SNOMED Code ICD Code Onset Dates Problem Status W/U Status Risk Notes Problem 511652104 Right thyroid nodule (E04.1) Active confirmed She has a 6 mm right thyroid nodule which is being observed by endocrinolog y. It is not painful when she is free of symptoms. Vital Signs Height 64 in 11/19/2024 Weight 206 lbs 11/19/2024 BMI 35.36 kg/m2 11/19/2024 Encounters Encounter Location Date Provider Diagnosis Tong Liao III, MD [address] [place] [address] [address] [place], [place] [address] 11/19/2024 Tong Liao Essential hypertensi on I10 ; Right thyroid nodule E04.1 ; Acquired hypothyroidism E03.9 ; Obesity (BMI 30-39.9) E66.9 and Former smoker Z87.891 Assessments Encounter Date Diagnosis (ICD Code) Assessment Notes Treat ment Notes Treatment Clinical Notes 11/19/2024 Essential hypertension (ICD-10 - I10) She is tolerating the losartan well and will return in the near future to check her blood pressure. 11/19/2024 Right thyroid nodule (ICD-10 - E04.1) She has a 6 mm right thyroid nodule which is being observed by endocrinology. It is not painful when she is free of symptoms. 11/19/2024 Acquired hypothyroidism (ICD-10 - E03.9) She says she has been compliant with her medication and feels well. Her thyroid function tests are being managed by her film laboratory technician. She denies any constipation or diarrhea or tachycardia. Her voice remains within normal limits. 11/19/2024 Obesity (BMI 30-39.9 ) (ICD-10 - E66.9) 11/19/2024 Former smoker (ICD-1 0 - Z87.891) We discussed her strategy for relapse prevention in times of stress and illness. She seems motivated not to smoke. Plan Of Treatment Medication Medication Name Sig Start Date Stop Date Notes Methadone HCl 10 MG/5ML 105 ml as needed Orally Once a day 96 mg/d hydroCHLOROthiazide 25 MG TAKE 1 TABLET BY MOUTH EVERY MORNING Wegovy 0.25 MG/0.5ML 0.5 mL Subcutaneous once a week for four weeks 11/18/2023 SUMAtriptan Succinate 100 MG 1 TABLET OR ALLY TWICE DAILY AT LEAST 2 HOURS BETWEEN EACH DOSE Levothyroxine Sodium 150 MCG 1 tablet in the morning on an empty stomach Orally Once a day 03/25/2024 Multivitamin - 1 tablet Orally Once a day 01/22/2023 Famotidine 10 MG 1 tablet as needed O rally Twice a day 01/22/2023 Pending Test Test Name Order Date PROFILE, FASTING (COMPREHENSIVE METABOLI C) 11/19/2024 TSH (THYROID STIMULATING HORMONE) 2024 CBC w DIFF 11/19/2024 Lipid Panel 11/19/2024 Free T4 (Free Thyroxine) 11/19/2024 Next Appt Details Follow Up: As Scheduled, Theresa son: OV Provider Name:Tong Liao , 08/04/2025 09:45:00 AM, [address] [place] [address] [address], [place], [address], Provider Name:Tong Liao , 03/27/2026 09:30:00 AM, [address] [place] [address] [address], [place], [address], Progress Notes * ReneBYRONOMAR DanielledebbieDOB:02/1986 (39 yo F)Acc No.[id number]:11/19/2024 Patient: Miri JAQUEZ Provider: Gretchen Liao MD :1985 A ge:39 Y S ex:Female Date:11/19/2024 Address:[address] [place] [address], [place], [id number] Subjective: * Chief Complaints: * 6 mm thyroid nodule mid right lobeHypertensionHypothyroidChronic migrainesMethadone maintenance * HPI: * : This telehealth visit took place over 15 minutes with the patient at home and me in my office. She gave consent for billing. She called for the results of her recent thyroid ultrasound. She is under the care of an film laboratory technician. The ultrasound recently had showed a 6 mm nodule in the middle of her right lobe of her thyroid. It is being followed by endocrine. She has no symptoms of hyperthyroidism. There was no adenopathy in the neck on the ultrasound.She continues her efforts at weight loss. She is not now taking Wegovy. She has had no chest pain or nausea vomiting diarrhea fevers or chills. She has been compliant with all of her medications. Telehealth L ocation of provider rendering services: { ...} [address] [facility] [address] [facility] [address] L ocation of patient: maria luisa ddrthee listed in demographics for today's visit P atient identification confirmed using: ANA Triplett ame T elehealth method: T elephone only. Patient not visible to care provider. C onsent: P atient verbally consented to treatment, Patient verbally consented to billing insurance company, Patient informed of any privacy concerns related to method of visit T otal time spent with patient (mins) 1 5 * ROS: G eneral/Constitutional: pain o nly normal aches and pains. C hills d enies.?Fatigue a dmits. F ever d enies. E NT: Decreased hearing d enies. R espiratory: Cough d enies. C ardiovascular: Chest pain with exertion d enies. D yspnea on exertion?denies. S hortness of breath d enies. G astrointestinal: Constipation o ccasional. D ecreased appetite d enies. D iarrhea d enies. H eartburn d enies. N ausea d enies. R ectal bleeding d enies. V omiting d enies. H ematology: bruising d enies. p etechiae d enies. S wollen glands n one have been noted. G enitourinary: Frequent urination d enies. M usculoskeletal: Muscle aches d enies. P ainful joints d enies. S ciatica d enies. W eakness d enies. S kin: Itching d enies. R lyudmila d enies. S kin lesion(s)?denies. N eurologic: Difficulty speaking d enies. D izziness d enies.?Headache M igraines. L ow back pain d enies. P sychiatric: Depressed mood w hich is mild. * Medical History: * Surgical History: f oreign body removed left wrist [id number] colposcopy and [facility] biopsy of cervix for abnormal Pap smear 11/27/2022No history * Hospitalization/Major Diagno stic Procedure: N o history * Family History: F ather: 54 yrs, diagnosed with HTN, CVD. M other: alive 72 yrs, diagnosed with HTN, CVD, Cancer. S iblings: alive. 2 brother(s) - healthy. . Her father of coronary artery disease and myocardial infarction. Her mother is alive with history of cancer of the breast twice in her 40's and 50s and of the cervix. Her maternal grandmather had breast cancer twice in her fifties. She has 2 healthy brothers and no sisters. She has no children. Her counter installer is in the process of testing her for BRCA1 and BRCA2. * Social History: T obacco Use: T obacco Use/Smoking P atient is a f ormer smoker H ow long has it been since you last smoked??5-10 years A dditional Findings: Tobacco Non-User E x-cigarette smoker S he does not smoke cigarettes but uses vaping. 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 She has no children. 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 She is single but she is engaged and her fiance is HIV positive. She says that his HIV titers are low and he takes his medication. They are using barrier protection. She was given Truvada to prevent transmission but the drug made her very ill. * Medications: T akinghydroCHLOROthiazide 25 MG Tablet TAKE 1 TABLET BY MOUTH EVERY MORNING Wegovy 0.25 MG/0.5ML Solution Auto-injector 0.5 mL Subcutaneous once a week for four weeks Famotidine 10 MG Tablet 1 tablet as needed Orally Twice a day Multivitamin - Tablet 1 tablet Orally Once a day Methadone HCl 10 MG/5ML Solution 105 ml as needed Orally Once a day , Notes to Pharmacist: 96 mg/dLevothyroxine Sodium 150 MCG Tablet 1 tablet in the morning on an empty stomach Orally Once a day SUMAtriptan Succinate 100 MG Tablet 1 TABLET ORALLY TWICE DAILY AT LEAST 2 HOURS BETWEEN EACH DOSE Medication List reviewed and reconciled with the patientTaking hydroCHLOROthiazide 25 MG Tablet TAKE 1 TABLET BY MOUTH EVERY MORNING Taking Wegovy 0.25 MG/0.5ML Solution Auto- injector 0.5 mL Subcutaneous once a week for four weeks Taking Famotidine 10 MG Tablet 1 tablet as needed Orally Twice a day Taking Multivitamin - Tablet 1 tablet Orally Once a day Taking Methadone HCl 10 MG/5ML Solution 105 ml as needed Orally Once a day , Notes to Pharmacist: 96 mg/dTaking Levothyroxine Sodium 150 MCG Tablet 1 tablet in the morning on an empty stomach Orally Once a day Taking SUMAtriptan Succinate 100 MG Tablet 1 TABLET ORALLY TWICE DAILY AT LEAST 2 HOURS BETWEEN EACH DOSE Medication List reviewed and reconciled with the patient * Allergies: F Justine[Allergies Verified] Objective: * Vitals: H t: 64, Wt: 206, BMI:35.36, Ht-cm: 162.56, Wt-k.44. Assessment: * Assessment: 1. R ight thyroid nodule - E04.1 (Primary) N otes :She has a 6 mm right thyroid nodule which is being observed by endocrinology. It is not painful when she is free of symptoms. 2 . E ssential hypertension - I10 N otes :She is tolerating the losartan well and will return in the near future to check her blood pressure. 3 . A cquired hypothyroidism - E03.9 N otes :She says she has been compliant with her medication and feels well. Her thyroid function tests are being managed by her film laboratory technician. She denies any constipation or diarrhea or tachycardia. Her voice remains within normal limits. 4 . O besity (BMI 30-39.9) - E66.9 5 . F ormer smoker - Z87.891 N otes :We discussed her strategy for relapse prevention in times of stress and illness. She seems motivated not to smoke. Plan: * Treatment: 2. A cquired hypothyroidism L AB: PROFILE, FASTING (COMPREHENSIVE METABOLIC) L AB: TSH (THYROID STIMULATING HORMONE) L AB: CBC w DIFF L AB: Lipid Panel L AB: Free T4 (Free Thyroxine) 3. O besity (BMI 30-39.9) L AB: PROFILE, FASTING (COMPREHENSIVE METABOLIC) L AB: TSH (THYROID STIMULATING HORMONE) L AB: CBC w DIFF L AB: Lipid Panel L AB: Free T4 (Free Thyroxine) 4. O thers Continue SUMAtriptan Succinate Tablet, 100 MG, 1 TABLET, ORALLY, TWICE DAILY AT LEAST 2 HOURS BETWEEN EACH DOSE; C ontinue hydroCHLOROthiazide Tablet, 25 MG, TAKE 1 TABLET BY MOUTH EVERY MORNING; Continue Wegovy Solution Auto-injector, 0.25 MG/0.5ML, 0.5 mL, Subcutaneous, once a week for four weeks. * Procedure Codes: 9 8012 SYNCH AUDIO-ONLY EST SF 10 * Preventive Medicine: Counseling: C are goal follow-up plan: Counseling for abnormal BMI given Y es Above Normal BMI Follow-up D ietary management education, guidance, and counseling, Dietary needs education S moking/Tobacco Use Patient counseled on the dangers of tobacco use and urged to quit. 0 11/19/2024 * Follow Up: A s Scheduled (Reason: OV) * Images: * Sign off status: Completed true * Provider: Gretchen Liao MD Date: 0 11/19/2024 Generated for Judy buckley/Yazmin/Fayeransmitting on: 1 08/31/2024 02:24 PM EST History and Physical Notes * HPI (History of Present Illness) Category Sub-Category Detail Notes Telehealth Location of [facility] rendering services:: {...} [address] [place] [address] [place], [place] [id number] Location of patient:: address listed in demographics for today's visit Patient identification confirmed using:: Name, Telehealth method:: Telephone only. Mei ent not visible to care provider. Consent:: Patient verbally c onsented to treatment, Patient verbally consented to billing insurance company, Patient informed of any privacy concerns related to method of visit Total time spent with patient (mins): 15
--- OUTSIDE RECORDS SUMMARY | 2025-01-26 12:15 | XMS_ITS ---
Author Organization Tong Liao III, MD Address [address] [place] [address] DR VILLALPANDORACHELALYSSA [address] Care Team Providers Care Dental Hygiene Administrative Assistant Name Role Phone Dr. Tong Liao III [...] Date Provider Diagnosis Tong Liao III, MD [address] [place] [address] [place] [address] 01/26/2025 Tong Liao Essential hypertensi on I10 [...] Provider Name:Tong Liao , 08/04/2025 09:45:00 AM, [address] [place] [address] MARIS[address] AGUERO, [place]YSS[place]A, [address], Provider Name:Tong Liao , 03/27/2026 09:30:00 AM, [address] [place] [address] [place], [address], Progress Notes * Miri SOLERDOB:02/1986 (39 yo F)Acc No.[id number]:01/26/2025 Progress Notes Patient: Miri JAQUEZ Provider: Gretchen Liao MD :1985 A ge:39 Y S ex:Female Date:01/26/2025 Address:[address] [place] [phone] Subjective: * Chief Complaints: * 1 . [...] f oreign body removed left wrist , [id number] , colposcopy and Cone biopsy of cervix [...] no sisters. She has no children. Her legal recovery specialist is in the process of testing [...] children. 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 She is single but she is [...] MD Date: 0 01/26/2025 Generated for Judy buckley/Yazmin/Missyitting on: 1 08/31/2024 02:25 PM EST History and Physical Notes * [...]
--- OUTSIDE RECORDS SUMMARY | 2025-02-09 12:00 | XMS_ITS ---
Author Organization Tong Liao III, MD Address [address] [place] [address] DR VILLALPANDORACHELALYSSA [address] Care Team Providers Care Coal Chute Worker Name Role Phone Dr. Tong Liao III [...] Date Provider Diagnosis Tong Liao III, MD [address] [place] [address] [place] [address] 02/09/2025 Tong Liao Essential hypertensi on I10 [...] Provider Name:Tong Liao , 08/04/2025 09:45:00 AM, [address] [place] [address] MARISOL AGUERO, ALYSSA VELA, [address], Provider Name:Tong Liao , 03/27/2026 09:30:00 AM, [address] [place] [address] [place], [address], Progress Notes * Miri SOLERDOB:02/1986 (39 yo F)Acc No.[id number]:02/09/2025 Progress Notes Patient: Miri JAQUEZ Provider: Gretchen Liao MD :1985 A ge:39 Y S ex:Female Date:02/09/2025 Address:[address] [place] [phone] Subjective: * Chief Complaints: * 1 . [...] f oreign body removed left wrist , [id number] , colposcopy and Cone biopsy of cervix [...] no sisters. She has no children. Her cloth measurer is in the process of testing her [...] children. 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 She is single but she [...] MD Date: 0 02/09/2025 Generated for Judy buckley/Yazmin/Missyitting on: 08/31/2024 02:26 PM EST History and Physical Notes * [...]
--- OUTSIDE RECORDS SUMMARY | 2025-03-07 06:16 | XMS_ITS ---
Author Organization Tong Liao III, MD Address [address] [place] [address] [place] [address] Care Team Providers Care Evaluation Assistant Name Role Phone Dr. Tong Liao [...] Date Provider Diagnosis Tong Liao III, MD [address] [place] [address] [place] [address] 03/07/2025 Tong Liao Essential hypertensi on I10 [...] Provider Name:Tong Liao , 08/04/2025 09:45:00 AM, [address] [place] [address] [place], [address], Provider Name:Tong Liao , 03/27/2026 09:30:00 AM, [address] [place] [address] [place], [address], Progress Notes * Miri SOLERDOB:02/1986 (39 yo F)Acc No.[id number]:03/07/2025 Patient: Miri JAQUEZ :1985 A ge:39 Y S ex:Female Address:[address] [place] [address], [place], [address] * Refills Refill Levothyroxine Sodium Tablet, 150 MCG, Orally, 90 Tablet, 1 tablet in the morning on an empty stomach, Once a day, 90 days, Refills=3 * true * Date: Generated for Judy buckley/Yazmin/Missyitting on: 08/31/2024 02:25 PM EST
--- OUTSIDE RECORDS SUMMARY | 2025-03-24 04:00 | XMS_ITS ---
Author Organization Tong Liao III, MD Address [address] [place] [address] [place] [address] Care Team Providers Care Maintenance Department Manager Name Role Phone Dr. Tong Liao III Primary Care Provider Allergies Allergen (clinical drug ingredient) Drug/Non Drug Allergy documented on EMR Reaction Allergy Type Onset Date Status emtricitabine / tenofovir disoproxil Truvada Unknown Drug Allergy Active metronidazole Flagyl Unknown Drug Allergy Act laurie Reason For Referral Reason Evaluate and Treat Chronic Constant Migraine Diagnosis 1 Chronic migraine wit h aura without status migrainosus, not intractable (G43.E09) Referral Organization Tong Liao III, MD Referring Provider First Name Tong Referring Provider Last Name Keshawn Referring Provider Speciality Internal edicine Referred Provider Neurology [facility] Referred Provider Specialty Neurology General Notes 03/28/2025 11:06:09 AM > Faxed referral and progress note Referral Priority Routine Referral Appointment Date 05/05/2025 Reason Evaluate and Treat Hypothyroidism Right Thyroid Nodule Diagnosis 1 Acquired hypothyroid ism (E03.9) Diagnosis 2 Right thyroid nodule (E04.1) Referral Organization Tong Liao III, MD Referring Provider First Name Tong Referring Provider Last Name Keshawn Referring Provider Speciality Internal edicine Referred Provider [facility] Referred Provider Specialty Endocrinolog y General Notes 03/28/2025 11:05:37 AM > Faxed referral with progress note, 03/30/2025 03:21:29 PM > [facility] [place] [facility] [place] most recent labs and US. Labs and US were sent to ATTN: Orestes Referral Priority Routine Referral Appointment Date 04/27/2025 REASON FOR VISIT Annual Exam Medications Medication SIG (Take, Route, Frequency, Duration) Notes Start Date End Date Status SUMAtriptan Succinate 100 MG 1 TABLET OR ALLY TWICE DAILY AT LEAST 2 HOURS BETWEEN EACH DOSE Active Multivitamin - 1 tablet Orally Once a day 01/22/2023 Active hydroCHLOROthiazide 25 MG TAKE 1 TABLET BY MOUTH EVERY MORNING Active Famotidine 10 MG 1 tablet as needed Orally Twice a day 01/22/2023 Active Propranolol HCl 10 MG 1 tablet on an emp ty stomach Orally every 12 hrs for 30 days 03/24/2025 Active Levothyroxine Sodium 150 MCG 1 tablet in the morning on an empty stomach Orally Once a day 03/25/2024 Active Social History Tobacco Use: Social History Observation Description Date Details (start date - stop date) Former Smoker NA - NA Sex Assigned At : Social History Observation Description Sex Assigned At Female Tobacco Control (Standard) Question Answer Notes Tobacco use: Former smoker How long has it been since you last smoked? 5-10 years Additional Findings: Tobacco non-user Ex-cigaret te smoker AUDIT-C (Standard) Question Answer Notes Did you have a drink containing alcohol in the p ast year? No Points 0 Interpretation Negative Vital Signs Temperature 99.0 degrees Fahrenheit 03/24/20 25 Blood pressure systolic 141 mm Hg 03/24/20 25 Blood pressure diastolic 77 mm Hg 025 Heart Rate 89 /min 03/24/2025 Height 64 in 03/24/2025 Weight 189 lbs 03/24/2025 BMI 32.44 kg/m2 03/24/2025 Encounters Encounter Location Date Provider Diagnosis Tong Liao III, MD [address] [place] [address] [place] [id number] 03/24/2025 Tong Liao Essential hypertensi on I10 ; Acquired hypothyroidism E03.9 ; Obesity (BMI 30-39.9) E66.9 ; Family history of breast cancer Z80.3 ; History of intravenous drug use in remission Z87.898 ; Former smoker Z87.891 and 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 She will return to the office in near future to recheck this. If necessary her medications will be adjusted. 03/24/2025 Acquired hypothyroidism (ICD-10 - E03.9) She will now begin the 150 mcg dose. Thyroid function tests will be checked in the near future. 03/24/2025 Obesity (BMI 30-39.9 ) (ICD-10 - E66.9) She has lost 7 pounds in her body mass index is 32. We reviewed her weight loss strategy. We made a plan to lose weight at a rate of one half of a pound per week through a diet restricted in fat carbohydrates and sodium combined with regular physical activity. 03/24/2025 Family history of breast cancer (ICD-10 - Z80.3) She says the associate brand manager is in the process of ordering testing for BRCA1 and BRCA2 03/24/2025 History of intravenous drug use in remission (ICD-10 - Z87.898) She is in recovery and in the methadone maintenance program at this time. 03/24/2025 Former smoker (ICD-1 0 - Z87.891) We discussed her strategy for relapse prevention in times of stress and illness. She seems motivated not to smoke. 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 Plan Of Treatment Medication Medication Name Sig Start Date Stop Date Notes SUMAtriptan Succinate 100 MG 1 TABLET OR ALLY TWICE DAILY AT LEAST 2 HOURS BETWEEN EACH DOSE Multivitamin - 1 tablet Orally Once a day 01/22/2023 hydroCHLOROthiazide 25 MG TAKE 1 TABLET BY MOUTH EVERY MORNING Famotidine 10 MG 1 tablet as needed O rally Twice a day 01/22/2023 Propranolol HCl 10 MG 1 tablet on an emp ty stomach Orally every 12 hrs for 30 days 03/24/2025 Levothyroxine Sodium 150 MCG 1 tablet in the morning on an empty stomach Orally Once a day 03/25/2024 Pending Test Test Name Order Date PROFILE, RANDOM (COMPREHENSIVE METABOLIC ) 03/24/2025 TSH (THYROID STIMULATING HORMONE) 2024 CBC w DIFF 03/24/2025 Free T4 (Free Thyroxine) 03/24/2025 Referrals Referral Date Details 03/24/2025 03/24/2025, Evaluate and Treat Chronic Constant Migraine, [facility] 03/24/2025 03/24/2025, Evaluate and Treat Hypothyroidism Right Thyroid Nodule, [facility] Next Appt Details Follow Up: 4 Weeks, Reason: Telehealth Provider Name:Tong Liao , 08/04/2025 09:45:00 AM, [address] [place] [address] [address], [place], [phone], Provider Name:Tong Liao , 03/27/2026 09:30:00 AM, [address] [place] [address] [address], [place], [phone], Progress Notes * Miri SOLERDOB:02/1986 (39 yo F)Acc No.[id number]:03/24/2025 Progress Notes Patient: Miri JAQUEZ Provider: Gretchen Liao MD :1985 A ge:39 Y S ex:Female Date:03/24/2025 Address:[address] [place] [address], [place], [id number] Subjective: * Chief Complaints: * A nnual Exam * HPI: D epression Screening: S he returns to the office at the age of 39 for her annual physical examination. On previous visit her free T4 level was elevated and I reduced the dose of levothyroxine down to 150mcg. However, she says she has persisted in taking the 200 wanting to use up the Stockle medication.? She is going to start the 150 mcg dose tomorrow. Thyroid function tests will be done after several weeks and the medication adjusted as needed. She continues to have frequent headaches. Since October of this year she has been off of the methadone entirely which she says was rough. She has lost 17 pounds through diet and exercise. She had a mammogram that was negative. PHQ-9 L ittle interest or pleasure in doing things?Not at all F eeling down, depressed, or hopeless N ot at all T rouble falling or staying asleep, or sleeping too much N ot at all F eeling tired or having little energy N ot at all P oor appetite or overeating N ot at all F eeling bad about yourself or that you are a failure, or have let yourself or your family down N ot at all T rouble concentrating on things, such as reading the newspaper or watching television N ot at all M oving or speaking so slowly that other people could have noticed; or the opposite, being so fidgety or restless that you have been moving around a lot more than usual N ot at all T houghts that you would be better off or of hurting yourself in some way N ot at all T otal Score 0 C OVID-19 Screening: Questions H ave you had any new onset fever, chills, cough, congestion, sore throat, shortness of breath, muscle aches? N o S KAN Questions: SDOH Questions I n the past year have you been worried about losing your housing? N o I n the past year have you or any family members you live with been unable to get any of the following when it was really needed? Check all that apply: N one * ROS: G eneral/Constitutional: pain M igraines, otherwise only normal aches and pains.?Chills d enies. F atigue a dmits. F ever d enies. E [...] have been noted. G enitourinary: Frequent urination a t night. M usculoskeletal: Muscle aches d enies. P ainful joints d enies. S ciatica d enies. W eakness d enies. S kin: Itching d enies. R lyudmila d enies. S kin lesion(s)?denies. N eurologic: Difficulty speaking d enies. D izziness d enies.?Headache d enies. L ow back pain d enies. P sychiatric: Depressed mood d enies. * Medical History: * Surgical History: rukhsana patterson body removed left wrist [id number] colposcopy and [facility] biopsy of cervix for [...] no sisters. She has no children. Her associate brand manager is in the process of testing her for BRCA1 and BRCA2. * Social History: T obacco Use: T obacco Control (Standard) T obacco use: F ormer smoker H ow long has it been since you last smoked??5-10 years A dditional Findings: Tobacco non-user E x-cigarette smoker D rugs/Alcohol: D rugs H ave you used drugs other than those for medical reasons in the past 12 months? N o D rug/Alcohol: A BAY-C (Standard) D id you have a drink containing alcohol in the past year? N o P oints 0 I nterpretation N egative S he does not smoke cigarettes but uses vaping. 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 She has no children. 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 She is single but she is engaged and her fiance is HIV positive. She says that his HIV titers are low and he takes his medication. They are using barrier protection. She was given Truvada to prevent transmission but the drug made her very ill. * Medications: T akingSUMAtriptan Succinate 100 MG Tablet 1 TABLET ORALLY TWICE DAILY AT LEAST 2 HOURS BETWEEN EACH DOSE hydroCHLOROthiazide 25 MG Tablet TAKE 1 TABLET BY MOUTH EVERY MORNING Famotidine 10 MG Tablet 1 tablet as needed Orally Twice a day Multivitamin - Tablet 1 tablet Orally Once a day Levothyroxine Sodium 150 MCG Tablet 1 tablet in the morning on an empty stomach Orally Once a day Taking SUMAtriptan Succinate 100 MG Tablet 1 TABLET ORALLY TWICE DAILY AT LEAST 2 HOURS BETWEEN EACH DOSE Taking hydroCHLOROthiazide 25 MG Tablet TAKE 1 TABLET BY MOUTH EVERY MORNING Taking Famotidine 10 MG Tablet 1 tablet as needed Orally Twice a day Taking Multivitamin - Tablet 1 tablet Orally Once a day Taking Levothyroxine Sodium 150 MCG Tablet 1 tablet in the morning on an empty stomach Orally Once a day DiscontinuedWegovy 0.25 MG/0.5ML Solution Auto-injector 0.5 mL Subcutaneous once a week for four weeks Methadone HCl 10 MG/5ML Solution 105 ml as needed Orally Once a day , Notes to Pharmacist: 96 mg/dMedication List reviewed and reconciled with the patientDiscontinued Wegovy 0.25 MG/0.5ML Solution Auto-injector 0.5 mL Subcutaneous once a week for four weeks Discontinued Methadone HCl 10 MG/5ML Solution 105 ml as needed Orally Once a day , Notes to Pharmacist: 96 mg/dMedication List reviewed and reconciled with the patient * Allergies: F aprilylTruvadajarrett[Allergies Verified] Objective: * Vitals: H t: 64, Wt: 189, BMI:32.44, BP: 141/77, HR: 89, Temp: 99.0, Ht-cm: 162.56, Wt-k.73. * Examination: G eneral Examination: GENERAL APPEARANCE: p leasant, well nourished, well developed, in no acute distress, calm and relaxed: obese: woman. HEAD: a traumatic, normocephalic. EYES: e ericka, perrla, anicteric, conjugate. EARS: n ormal. NOSE: s eptum intact. ORAL CAVITY: n ormal, unremarkable. NECK/THYROID: n o jugular venous distention, no carotid bruit, thyroid not palpable. LYMPH NODES: n o enlarged lymph nodes,spleen normal. SKIN: n o suspicious lesions, anicteric. HEART: n o clicks, gallops, murmurs, or rubs, regular rhythm, S1, S2 normal, no s3, or vascular bruits. LUNGS: c lear to auscultation . BREASTS: N ot examined. ABDOMEN: b owel sounds normal, no ascites, no organomegaly, no mass: centripital obesity. RECTAL EXAM: n ot examined. MUSCULOSKELETAL: e xtremities unremarkable, no clubbing, cyanosis or edema. PERIPHERAL PULSES: n ormal. NEUROLOGIC: a lert and oriented, cranial nerves 2-12 grossly intact, deep tendon reflexes 2+ symmetrical, motor strength normal upper and lower extremities, sensory exam intact. PSYCH: a lert, oriented. Assessment: * Assessment: 1. E ssential hypertension - I10 (Primary) N otes :She is tolerating the losartan well and will return in the near future to check her blood pressure.Her systolic blood pressure slightly high. She will return to the office in near future to recheck this. If necessary her medications will be adjusted. 2 . A cquired hypothyroidism - E03.9 N otes :She will now begin the 150 mcg dose. Thyroid function tests will be checked in the near future. 3 . O besity (BMI 30-39.9) - E66.9 N otes :She has lost 7 pounds in her body mass index is 32. We reviewed her weight loss strategy.? We made a plan to lose weight at a rate of one half of a pound per week through a diet restricted in fat carbohydrates and sodium combined with regular physical activity. 4 . F amily history of breast cancer - Z80.3 N otes :She says the associate brand manager is in the process of ordering testing for BRCA1 and BRCA2 5 . H istory of intravenous drug use in remission - Z87.898 N otes :She is in recovery and in the methadone maintenance program at this time. 6 . F ormer smoker - Z87.891 N otes :We discussed her strategy for relapse prevention in times of stress and illness. She seems motivated not to smoke. 7 . M ethadone maintenance therapy patient - F11.20 N otes :She stopped the methadone in October 2024 and is doing well. Plan: * Treatment: 2. A cquired hypothyroidism L AB: PROFILE, RANDOM (COMPREHENSIVE METABOLIC) L AB: TSH (THYROID STIMULATING HORMONE) L AB: CBC w DIFF L AB: Free T4 (Free Thyroxine) Referral To:[facility] Endocr[facility]ology Reason:Evaluate and Treat Hypothyroidism Right Thyroid Nodule 3. O besity (BMI 30-39.9) L AB: PROFILE, RANDOM (COMPREHENSIVE METABOLIC) L AB: TSH (THYROID STIMULATING HORMONE) L AB: CBC w DIFF L AB: Free T4 (Free Thyroxine) 4. O thers Referral To:[facility] Neurology Reason:Evaluate and Treat Chronic Constant Migraine Referral To:Endocrinology & Diabetes [facility] Endocr[facility]ology Reason:Evaluate and Treat Hypothyroidism Right Thyroid Nodule * Procedure Codes: * Preventive Medicine: Counseling: C are goal follow-up plan: Counseling for abnormal BMI given Y es Above Normal BMI Follow-up D ietary management education, guidance, and counseling, Dietary needs education, Exercise promotion: strength training, Exercise promotion: stretching, Feeding regime, Giving encouragement to exercise, Lifestyle education regarding diet, Nutrition / feeding management, Nutrition therapy, Prescribed activity/exercise education, Prescribed diet education, Prescribed dietary intake, Special diet education, Weight monitoring , Intervention, Order not done: Medical or Other reason not done S moking/Tobacco Use Patient counseled on the dangers of tobacco use and urged to quit. 0 03/24/2025 * Follow Up: 4 Weeks (Reason: Telehealth) * Images: * Sign off status: Completed true * Provider: Gretchen Liao MD Date: 0 03/24/2025 Generated for Judy buckley/Yazmin/eTransmitting on: 1 08/31/2024 02:24 PM EST History and Physical Notes * HPI (History of Present Illness) Category Sub-Category Detail Notes Depression Screening PHQ-9 Little inte rest or pleasure in doing things: Not at all Feeling down, depressed, or hopeless: No t at all Trouble falling or staying asleep, or sl eeping too much: Not at all Feeling tired or having little energy: N ot at all Poor appetite or overeating: Not at all Feeling bad about yourself o r that you are a failure, or have let yourself or your family down: Not at all Trouble concentrating on thi ngs, such as reading the newspaper or watching television: Not at all Moving or speaking so slowly that other people could have noticed; or the opposite, being so fidgety or restless that you have been moving around a lot more than usual: Not at all Thoughts that you would be b reta off or of hurting yourself in some way: Not at all Total Score: 0 COVID-19 Screening Questions Have you had any new onset fever, chills, cough, congestion, sore throat, shortness of breath, muscle aches?: No SDOH Questions SDOH Questions In the past year have you been worried about losing your housing?: No In the past year have you or any family members you live with been unable to get any of the following when it was really needed? Check all that apply:: None Examination Category Sub-Category Detail Notes General Examination GENERAL APPEARANCE: pleasant , well nourished, well developed, in no acute distress, calm and relaxed: obese: woman HEAD: atraumatic, normocep halic EYES: eomi, perrla, anicte yuliana, conjugate EARS: normal NOSE: septum intact NECK/THYROID: no jugular venous di stention, no carotid bruit, thyroid not palpable HEART: no clicks, gallops, murmurs, or rubs, regular rhythm, S1, S2 normal, no s3, or vascular bruits LUNGS: clear to auscultatio n ABDOMEN: bowel sounds normal, no ascites, no organomegaly, no mass: centripital obesity NEUROLOGIC: alert and oriented, cranial nerves 2-12 grossly intact, deep tendon reflexes 2+ symmetrical, motor strength normal upper and lower extremities, sensory exam intact SKIN: no suspicious lesion s, anicteric PERIPHERAL PULSES: normal BREASTS: Not examined MUSCULOSKELETAL: extremities unremark able, no clubbing, cyanosis or edema LYMPH NODES: no enlarged lymph no wilfrid,spleen normal RECTAL EXAM: not examined PSYCH: alert, oriented ORAL CAVITY: normal, unremarkable Consultation Request Notes Referral Date Referring Provider Referred Provider Not es 03/24/2025 Tong Liao Neurology [facility] Evaluate and Treat Chronic Constant Migraine 03/24/[address] [facility], [facility] Evaluate and Treat Hypothyroidism Right Thyroid Nodule
--- OUTSIDE RECORDS SUMMARY | 2025-04-21 12:00 | XMS_ITS ---
Author Organization Tong Liao III, MD Address [address] [place] [address] [place] [address] Care Team Providers Care First Coat Sander Name Role Phone Dr. Tong Liao III Primary Care Provider REASON FOR VISIT Follow up Social History Sex Assigned At : Social History Observation Description Sex Assigned At Female Encounters Encounter Location Date Provider Diagnosis Tong Liao III, MD [address] [place] [address] [place] [address] 04/21/2025 Tong Liao Plan Of Treatment Next Appt Details Provider Name:Tong Liao , 08/04/2025 09:45:00 AM, [address] [place] [address] [place], [address], Provider Name:Tong Liao , 03/27/2026 09:30:00 AM, [address] [place] [address] [place], [address], Progress Notes * LeeJEIMYOMARAngeliaarturDOB:02/1986 (39 yo F)Acc No.[id number]:04/21/2025 Patient: Miri JAQUEZ Provider: Gretchen Liao MD :1985 A ge:39 Y S ex:Female Date:04/21/2025 Address:[address], [place] Subjective: * Chief Complaints: * 1 . [...] Liao MD Date: 1 Generated for Judy buckley/Yazmin/Ruslan on: 08/31/2024 02:25 PM EST
--- OUTSIDE RECORDS SUMMARY | 2025-06-14 12:00 | XMS_ITS ---
Author Organization Tong Liao III, MD Address [address] [place] [address] [place] [address] Care Team Providers Care Non Licensed Nuclear Plant Operator Name Role Phone Dr. Tong Liao III Primary Care Provider [phone] Allergies Allergen (clinical drug ingredient) Drug/Non Drug [...] Date Provider Diagnosis Tong Liao III, MD [address] [place] [address] [place] [address] 06/14/2025 Tong Liao Essential hypertensi on I10 [...] Name:Tong Jannet Keshawn , 08/04/2025 09:45:00 AM, [address] [place] [address] [address], [place], [address], Provider Name:Tong Jannet Keshawn , 03/27/2026 09:30:00 AM, [address] [place] [address] [address], [place], [address], Progress Notes * MEMO AngeliaarturDOB:02/1986 (39 yo F)Acc No.[id number]:06/14/2025 Progress Notes Patient: Miri JAQUEZ Provider: Gretchen Liao MD :1985 A ge:39 Y S ex:Female Date:06/14/2025 Address:[address] [place] [address], [id number] Subjective: * Chief Complaints: * 1 . [...] f oreign body removed left wrist , [id number] , colposcopy and Cone biopsy of cervix [...] no sisters. She has no children. 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 She is single but she is [...] Date: 08/15/2024 Generated for Judy buckley/Yazmin/eTransmitting on: 08/31/2024 02:24 PM EST History and Physical [...]
--- OUTSIDE RECORDS SUMMARY | 2025-06-16 05:00 | XMS_ITS ---
Author Organization Tnog Liao III, MD Address [address] [place] [address] [facility] [place] [address] Care Team Providers Care Progressive Assembler And Fitter Name Role Phone Dr. Tong Liao III Primary Care Provider Allergies Allergen (clinical drug ingredient) Drug/Non Drug Allergy documented on EMR Reaction Allergy Type Onset Date Status emtricitabine / tenofovir disoproxil Truvada Unknown Drug Allergy Active metronidazole Flagyl Unknown Drug Allergy Act laurie Results Component Value Reference Range Notes XR lumbar spine 2-3V (Not ye t reviewed by provider) Interpretation: Performing Lab: Notes/Report: [address] [address] XRay Report Signed Patient: Miri Soler MR#: [id number] : 1985 Acct:[id number] Age/Sex: 39 / F ADM Date: 06/16/25 Loc: HO.VALARIE Attending Dr: Tong Liao MD Ordering Physician: Tong Liao MD Date of Service: 06/16/25 Procedure(s): XR lumbar spine 2-3V Accession Number(s): [id number] cc: Tong Liao MD Reason for Exam: PAIN EXAMINATION: XR LUMBOSACRAL SPINE CLINICAL INFORMATION: PAIN COMPARISON: None available. TECHNIQUE: AP and lateral views FINDINGS: No acute cortical disruption or malalignment. Small marginal osteophyte formation and endplate sclerosis pronounced at L1- 2. No lytic or blastic lesions. XR/XR lumbar spine 2-3V IMPRESSION: Mild multilevel spondylosis pronounced at L1-2. Electronically signed by: Roger Suarez MD 06/16/2025 11:29 AM EST RP Dictated By: Roger Wheat MD Signed By: <Electronically signed by Roger Griffiths MD in OV> 06/16/25 1129 DD/ 1119 TD/TT: 06/16/25 112 Dianetic Counselor: [address] [address] XRay Report Signed Patient: Miri Soler MR#: [id number] : 1985 Acct:[id number] Age/Sex: 39 / F ADM Date: 06/16/25 Loc: HO.XRAY Attending Dr: Tong Liao MD Ordering Physician: Tong Liao MD Date of Service: 06/16/25 Procedure(s): XR lum bar spine 2-3V Accession Number(s): [id number] cc: Tong Liao MD Reason for Exam: PAIN EXAMINATION: XR LUMBOSACRAL SPINE CLINICAL INFORMATION: PAIN COMPARISON: None available. TECHNIQUE: AP and lateral views FINDINGS: No acute cortical di sruption or malalignment. Small marginal osteophyte formation and endpla te sclerosis pronounced at L1- 2. No lytic or blastic lesions. X R/XR lumbar spine 2-3V IMPRESSION: Mild multilevel spon dylosis pronounced at L1-2. Electronically john d by: Roger Suarez MD 06/16/2025 11:29 AM EST RP Dictated By: Roger Jones MD Signed By: <Electron ically signed by Roger Griffiths MD in OV> 06/16/25 112 DD/ 1119 TD/TT: 06/16/25 112 Dianetic Counselor: XR sacrum coccyx min 2V (Not yet reviewed by provider) Interpretation: Performing Lab: Notes/Report: [address] [address] XRay Report Signed Patient: Miri Soler MR#: [id number] : 1985 Acct:[id number] Age/Sex: 39 / F ADM Date: 06/16/25 Loc: NIYHA Attending Dr: Tong Liao MD Ordering Physician: Tong Liao MD Date of Service: 06/16/25 Procedure(s): XR sacrum coccyx min 2V Accession Number(s): [id number] cc: Tong Liao MD Reason for Exam: PAIN EXAMINATION: XR SACRUM COCCYX 2 OR MORE VIEWS HISTORY: PAIN COMPARISON: There are no prior studies available for comparison. FINDINGS: Three views of the sacrum and coccyx are submitted. Osseous mineralization is normal. There is no fracture or lytic lesion. XR/XR sacrum coccyx min 2V IMPRESSION: Unremarkable examination of the sacrum and coccyx. Electronically signed by: Tong Guadalupe MD 06/16/2025 11:30 AM [facility] Dictated By: Tong Guadalupe MD Signed By: <Electronically signed by Tong Guadalupe MD in OV> 06/16/25 1130 DD/ 1121 TD/TT: 06/16/25 1124 Dianetic Counselor: [place] [address] XRay Report Signed Patient: Miri Soler MR#: [id number] : 1985 Acct:[id number] Age/Sex: 39 / F ADM Date: 06/16/25 Loc: NIYAH Attending Dr: Tong Liao MD Ordering Physician: Tong Liao MD Date of Service: 06/16/25 Procedure(s): XR sac rum coccyx min 2V Accession Number(s): [id number] cc: Tong Liao MD Reason for Exam: PAIN EXAMINATION: XR SACR UM COCCYX 2 OR MORE VIEWS HISTORY: PAIN COMPARISON: There ar e no prior studies available for comparison. FINDINGS: Three view s of the sacrum and coccyx are submitted. Osseous mineralization is no rmal. There is no fracture or lytic lesion. X R/XR sacrum coccyx min 2V IMPRESSION: Unremarkable examina tion of the sacrum and coccyx. Electronically john d by: Tong Guadalupe MD 06/16/2025 11:30 AM EST Dictated By: Tong Guadalupe MD Signed By: <Jess ramirez signed by Tong Guadalupe MD in OV> 06/16/25 1130 DD/ 1121 TD/TT: 06/16/25 1124 Dianetic Counselor: Reason For Referral Reason evaluate and treatme nt for lumbar and cervical spine pain acute and chronic pain ` Diagnosis 1 Cervical pain (neck) (M54.2) Diagnosis 2 Lumbar back pain (M5 4.50) Referral Organization Tong Liao III, MD Referring Provider First Name Tong Referring Provider Last Name Keshawn Referring Provider Speciality Internal M edicine Referred Provider [facility] Sp [facility] Referred Provider Specialty Physical Med icine General Notes Ozzy Sho [facility] 06/21 10:14:24 AM > ref/demo/ progress note/x rays faxed to [facility] pt called and made aware of this, Ozzy Sho [facility] 06/30/2025 02:13:47 PM >I called [facility] they stated they have tried to contact the patient three times and have not heard back from her . I called the patient and asked her to call them to make appt and call our office back with this information Referral Priority Routine REASON FOR VISIT chronic low back pain, Hypertension, Hypothyroidism, Obesity, Migraines Medications Medication SIG (Take, Route, Frequency, Duration) Notes Start Date End Date Status Levothyroxine Sodium 150 MCG 1 tablet in the morning on an empty stomach Orally Once a day 03/25/2024 Active Propranolol HCl 10 MG 1 tablet on an emp ty stomach Orally every 12 hrs 03/24/2025 Active Famotidine 10 MG 1 tablet as needed Orally Twice a day 01/22/2023 Active Multivitamin - 1 tablet Orally Once a day 01/22/2023 Active hydroCHLOROthiazide 25 MG TAKE 1 TABLET BY MOUTH EVERY MORNING Active SUMAtriptan Succinate 100 MG 1 TABLET OR ALLY TWICE DAILY AT LEAST 2 HOURS BETWEEN EACH DOSE Active Social History Tobacco Use: Social History Observation Description Date Details (start date - stop date) Former Smoker NA - NA Sex Assigned At : Social History Observation Description Sex Assigned At Female Tobacco Control (Standard) Question Answer Notes Tobacco use: Former smoker How long has it been since you last smoked? 5-10 years Additional Findings: Tobacco non-user Ex-cigaret te smoker Problems Problem Type SNOMED Code ICD Code Onset Dates Problem Status W/U Status Risk Notes Problem 043336777 Lumbar back pain (M54.50) Active confirmed The lumbosacral spine pain appears to be from degenerative causes. It does not radiate and there is no sciatica. I have ordered plain films of the lumbar spine and sacrum and referred her to rehabilitation medicine. She may benefit from physical therapy. Problem 35514581 Cervical pain (neck) (M54.2) Active confirmed The headaches appear to be originating in posterior musculature as a result of nerve impingement in the cervical spine. She has been referred to rehabilitation medicine. Vital Signs Temperature 98.4 degrees Fahrenheit 06/16/20 25 Blood pressure systolic 129 mm Hg 06/16/20 25 Blood pressure diastolic 82 mm Hg 025 Heart Rate 80 /min 06/16/2025 Height 64 in 06/16/2025 Weight 194 lbs 06/16/2025 BMI 33.3 kg/m2 06/16/2025 Encounters Encounter Location Date Provider Diagnosis Tong Liao III, MD [address] [place] [address] [place] [address] 06/16/2025 Tong Liao Essential hypertensi on I10 ; Lumbar back pain M54.50 ; Cervical pain (neck) M54.2 ; Obesity (BMI 30-39.9) E66.9 ; Former smoker Z87.891 ; Acquired hypothyroidism E03.9 ; Chronic migraine with aura without status migrainosus, not intractable G43.E09 and Right thyroid nodule E04.1 Assessments Encounter Date Diagnosis (ICD Code) Assessment Notes Treat ment Notes Treatment Clinical Notes 06/16/2025 Essential hypertension (ICD-10 - I10) She is tolerating the losartan well and will return in the near future to check her blood pressure.Her systolic blood pressure normal. She will return to the office in near future to recheck this. If necessary her medications will be adjusted. 06/16/2025 Lumbar back pain (ICD-10 - M54.50) The lumbosacral spine pain appears to be from degenerative causes. It does not radiate and there is no sciatica. I have ordered plain films of the lumbar spine and sacrum and referred her to rehabilitation medicine. She may benefit from physical therapy. 06/16/2025 Cervical pain (neck) (ICD-10 - M54.2) The headaches appear to be originating in posterior musculature as a result of nerve impingement in the cervical spine. She has been referred to rehabilitation medicine. 06/16/2025 Obesity (BMI 30-39.9) (ICD-10 - E66.9) She has lost 7 pounds in her body mass index is 32. We reviewed her weight loss strategy. We made a plan to lose weight at a rate of one half of a pound per week through a diet restricted in fat carbohydrates and sodium combined with regular physical activity. 06/16/2025 Former smoker (ICD-10 - Z87.891) We discussed her strategy for relapse prevention in times of stress and illness. She seems motivated not to smoke. 06/16/2025 Acquired hypothyroidism (ICD-10 - E03.9) She will now begin the 150 mcg dose. Thyroid function tests will be checked in the near future. 06/16/2025 Chronic migraine with aura without status migrainosus, not intractable (ICD-10 - G43.E09) The requested medication will be reviewed. 06/16/2025 Right thyroid nodule (ICD-10 - E04.1) She has a 6 mm right thyroid nodule which is being observed by endocrinology. It is not painful when she is free of symptoms. Plan Of Treatment Medication Medication Name Sig Start Date Stop Date Notes Levothyroxine Sodium 150 MCG 1 tablet in the morning on an empty stomach Orally Once a day 03/25/2024 Propranolol HCl 10 MG 1 tablet on an emp ty stomach Orally every 12 hrs 03/24/2025 Famotidine 10 MG 1 tablet as needed O rally Twice a day 01/22/2023 Multivitamin - 1 tablet Orally Once a day 01/22/2023 hydroCHLOROthiazide 25 MG TAKE 1 TABLET BY MOUTH EVERY MORNING SUMAtriptan Succinate 100 MG 1 TABLET OR ALLY TWICE DAILY AT LEAST 2 HOURS BETWEEN EACH DOSE Pending Test Test Name Order Date XR lumbar spine 2-3V 06/16/2025 XR sacrum coccyx min 2V 06/16/2025 Referrals Referral Date Details 06/16/2025 06/16/2025, evaluate and treatment for lumbar and cervical spine pain acute and chronic pain `, [facility] Next Appt Details Follow Up: july, on: ov review x ray Provider Name:Tong Liao , 08/04/2025 09:45:00 AM, [address] [place] [address] [address], [place], [address], Provider Name:Tong Liao , 03/27/2026 09:30:00 AM, [address] [place] [address] [address], [place], [address], Progress Notes * Miri SOLERDOB:02/1986 (39 yo F)Acc No.[id number]:06/16/2025 Progress Notes Patient: Miri JAQUEZ Provider: Gretchen Liao MD :1985 A ge:39 Y S ex:Female Date:06/16/2025 Address:[address] [place] [address], [place], [id number] Subjective: * Chief Complaints: * C hronic low back painHypertensionHypothyroidismObesityMigraines * HPI: C OVID-19 Screening: She recently saw a neurologist at [facility] for her headaches and was sent for an MRI that was within normal limits. The neurologist and told her that she had tight muscles in her neck causing the pain. 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 The pain continues to bother her and makes it difficult to walk and work. She has been referred to [facility] for rehabilitation medicine and physical therapy. X-rays of the spine have been ordered. She reports that the neck pain did not respond to muscle relaxers she is going to try an aggressive program of acetaminophen and ibuprofen and heat. Questions H ave you had any new onset fever, chills, cough, congestion, sore throat, shortness of breath, muscle aches? N o * ROS: G eneral/Constitutional: pain C ervical spine, headaches, tight neck muscles, low back pain. C hills d enies. F atigue a dmits. F [...] d enies. D izziness d enies.?Headache M igraine headaches. L ow back pain d enies. P sychiatric: Depressed mood w hich is mild. * Medical History: * Surgical History: f oreign body removed left wrist [id number] colposcopy and [facility] biopsy of cervix for [...] no sisters. She has no children. Her director experimental medicine is in the process of testing her [...] an empty stomach Orally Once a day Propranolol HCl 10 MG Tablet 1 tablet on an empty stomach Orally every 12 hrs Medication List reviewed and reconciled with the patientTaking SUMAtriptan Succinate 100 MG Tablet 1 TABLET [...] empty stomach Orally Once a day Taking Propranolol HCl 10 MG Tablet 1 tablet on an empty stomach Orally every 12 hrs Medication List reviewed and reconciled with the patient * Allergies: F Justine[Allergies Verified] Objective: * Vitals: H t: 64, Wt: 194, BMI:33.3, BP: 129/82, HR: 80, Temp: 98.4, Ht-cm: 162.56, Wt-k. * Examination: G eneral Examination: GENERAL APPEARANCE: p leasant, well nourished, well developed, in no acute distress, calm and relaxed: obese: woman. HEAD: a traumatic, normocephalic. EYES: e ericka, perrla, anicteric, conjugate. EARS: n ormal. NOSE: s eptum intact. ORAL CAVITY: n ormal, unremarkable. NECK/THYROID: n o jugular venous distention, no carotid bruit, thyroid normal, The range of motion of the neck is normal but rotation and lateral flexion causes pain in the left posterior neck muscles, A thyroid nodule is not appreciated. LYMPH NODES: n o enlarged lymph nodes,spleen [...] e xtremities unremarkable, no clubbing, cyanosis or edema, Decreased range of motion lumbar spine. PERIPHERAL PULSES: n ormal. NEUROLOGIC: a lert and oriented, cranial nerves 2-12 grossly intact, deep tendon reflexes 2+ symmetrical, motor strength normal upper and lower extremities, sensory exam intact. PSYCH: a lert, oriented: good eye contact: cognitive function intact: speech clear: thought process logical, goal directed. Assessment: * Assessment: 1. L umbar back pain - M54.50 (Primary) N otes :The lumbosacral spine pain appears to be from degenerative causes. It does not radiate and there is no sciatica. I have ordered plain films of the lumbar spine and sacrum and referred her to rehabilitation medicine. She may benefit from physical therapy. 2 . E ssential hypertension - I10 N otes :She is tolerating the losartan well and will return in the near future to check her blood pressure.Her systolic blood pressure normal. She will return to the office in near future to recheck this. If necessary her medications will be adjusted. 3 . C ervical pain (neck) - M54.2 N otes :The headaches appear to be originating in posterior musculature as a result of nerve impingement in the cervical spine. She has been referred to rehabilitation medicine. 4 . O besity (BMI 30-39.9) - E66.9 N otes :She has lost 7 pounds in her body mass index is 32. We reviewed her weight loss strategy. We made a plan to lose weight at a rate of one half of a pound per week through a diet restricted in fat carbohydrates and sodium combined with regular physical activity. 5 . F ormer smoker - Z87.891 N otes :We discussed her strategy for relapse prevention in times of stress and illness. She seems motivated not to smoke. 6 . A cquired hypothyroidism - E03.9 N otes :She will now begin the 150 mcg dose. Thyroid function tests will be checked in the near future. 7 . C hronic migraine with aura without status migrainosus, not intractable - G43.E09 N otes :The requested medication will be reviewed. 8 . R ight thyroid nodule - E04.1 N otes :She has a 6 mm right thyroid nodule which is being observed by endocrinology. It is not painful when she is free of symptoms. Plan: * Treatment: 2. E ssential hypertension Continue SUMAtriptan Succinate Tablet, 100 MG, 1 TABLET, ORALLY, TWICE DAILY AT LEAST 2 HOURS BETWEEN EACH DOSE; C ontinue hydroCHLOROthiazide Tablet, 25 MG, TAKE 1 TABLET BY MOUTH EVERY MORNING; Continue Famotidine Tablet, 10 MG, 1 tablet as needed, Orally, Twice a day; C ontinue Multivitamin Tablet, -, 1 tablet, Orally, Once a day; C ontinue Levothyroxine Sodium Tablet, 150 MCG, 1 tablet in the morning on an empty stomach, Orally, Once a day; C ontinue Propranolol HCl Tablet, 10 MG, 1 tablet on an empty stomach, Orally, every 12 hrs. ? Referral To:[facility] Reason:evaluate and treatment for lumbar and cervical spine pain * Procedure Codes: * Preventive Medicine: Counseling: [...] of tobacco use and urged to quit. 1 08/17/2024 * Follow Up: m id July (Reason: ov review x ray) * Images: * Sign off status: Completed true * Provider: Gretchen Laio MD Date: 08/17/2024 Generated for Massieli ng/Ceceliag/eTransmitting on: 08/31/2024 02:25 PM EST History and Physical [...] venous di stention, no carotid bruit, thyroid normal, The range of motion of the neck is normal but rotation and lateral flexion causes pain in the left posterior neck muscles, A thyroid nodule is not appreciated HEART: no clicks, gallops, murmurs, or rubs, [...] extremities unremark able, no clubbing, cyanosis or edema, Decreased range of motion lumbar spine LYMPH NODES: no enlarged lymph no wilfrid,spleen normal RECTAL EXAM: not examined PSYCH: alert, oriented: goo d eye contact: cognitive function intact: speech clear: thought process logical, goal directed ORAL CAVITY: normal, unremarkable Consultation Request Notes Referral Date Referring Provider Referred Provider Not es 06/16/2025 Tong Liao [facility] evaluate and treatment for lumbar and cervical spine pain acute and chronic pain `
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
--- OUTSIDE RECORDS SUMMARY | 2025-06-30 14:25 | XMS_ITS | Clinical Summary ---
Author Organization [facility] Address [address] [place] [address] Care Team Providers Care Operation Research Analyst Name Role Phone Tong Liao MD Primary Care Provider [phone] Allergies Active Allergy Reactions Criticality Noted Date [...] to complete this topic Insurance Care Teams Operation Research Analyst Relationship Specialty Start Date End Date Tong Liao MD [address] [place] [id number] PCP - General 08/10/24
--- OUTSIDE RECORDS SUMMARY | 2025-06-30 14:26 | XMS_ITS | Clinical Summary ---
Author Organization [address] [facility] Address [address] [place] [address] Phone Care Team Providers Care Mill Recorder Name Role Phone Tong Liao MD Primary Care Provider [phone] Social History Tobacco Use Types Packs/Day Years [...] LAB CHEMISTRY METHOD 12/23/2024 12:12 PM EDT [facility] ([facility]) [facility] Comment:If confirmation of t his positive HCV Ab screening test is needed, please redraw and order HCV Viral Load. Note--> This test may not be added on due to different specimen requirements. Blood Venous blood specimen / Unknown Venipuncture / Unknown 12/23/2024 9:56 AM EDT 12/23/2024 10:13 AM EDT us Darion Lance MD LAB BLOOD ORDERABLES Final Res ult Performing Organization Address [facility]/ZIP Co de Phone Number [facility] [address] [place] [address], [place] [phone] * HIV 1,2 antibody, p24 antigen with reflex to differentiation (12/23/2024 9:56 AM EDT) HIV Combo AB/AG Negative Negative LAB CHEMISTRY METHOD 12/23/2024 12:12 PM EDT [facility] Blood Venous blood specimen / Unknown Venipuncture / Unknown 12/23/2024 9:56 AM EDT 12/23/2024 10:13 AM EDT Narrative [facility] - 12/23/2024 12:12 PM EDT [...] ORDERABLES Final Res ult Performing Organization Address [facility] Co de Phone Number [facility] [address] [place] [address], [place] [phone] * HPV with reflex genotype (12/23/2024 12:00 AM EDT) HPV Negative Negative LAB MICROBIOLOGY METHOD 12/29/2024 3:28 PM EDT [facility] Brushing/Spatula Cervix uteri structure / Unknown 12/23/2024 12/28/2024 3:14 PM EDT us Darion Lance MD LAB MOLECULAR DIAGNOSTICS STEPHANIE NGUYEN Final Result Performing Organization Address [facility]/ZIP Co de Phone Number [facility] [address] [place] [address], [place] [phone] from Last 3 Months or Most Recently Relevant to Health Maintenance Insurance [facility] [place] [id number] [employer] MED[place] ADVANTAGE Care Teams Mill Recorder Relationship Specialty Start Date End Date Tong Liao MD PCP - General Oncology 01/20/25
--- OUTSIDE RECORDS SUMMARY | 2025-06-30 14:26 | XMS_ITS | Patient Health Record ---
Author Organization Tong Liao III, MD Address [address] [place] [address] [place] [address] Care Team Providers Care Child Support Specialist Name Role Phone Dr. Tong Liao III Primary Care Provider Allergies Allergen (clinical drug ingredient) Drug/Non Drug Allergy documented on EMR Reaction Allergy Type Onset Date Status emtricitabine / tenofovir disoproxil Truvada Unknown Drug Allergy Active metronidazole Flagyl Unknown Drug Allergy Act laurie Results Component Value Reference Range Notes XR lumbar spine 2-3V (Not ye t reviewed by provider) Interpretation: Performing Lab: Notes/Report: [address] [address] XRay Report Signed Patient: Miri Soler MR#: [id number] : 1985 Acct:[id number] Age/Sex: 39 / F ADM Date: 06/16/25 Loc: HO.VALARIE Attending Dr: Tong Liao MD Ordering Physician: Tong Liao MD Date of Service: 06/16/25 Procedure(s): XR lumbar spine 2-3V Accession Number(s): [id number] cc: Tong iLao MD Reason for Exam: PAIN EXAMINATION: XR [...] Griffiths MD in OV> 06/16/25 1129 DD/ 111 TD/TT: 06/16/251123 Engineer Third Assistant: [address] [address] XRay Report Signed Patient: Miri Soler MR#: [id number] : 1985 Acct:[id number] Age/Sex: 39 / F ADM Date: 06/16/25 Loc: HO.XRAY Attending Dr: Tong Liao MD Ordering Physician: Tong Liao MD Date of Service: 06/16/25 Procedure(s): XR lum bar spine 2-3V Accession Number(s): [id number] cc: Tong Liao MD Reason for Exam: [...] Griffiths MD in OV> 06/16/25 1129 DD/ 111 TD/TT: 06/16/25 112 Engineer Third Assistant: XR sacrum coccyx min 2V (Not yet reviewed by provider) Interpretation: Performing Lab: Notes/Report: [address] [address] XRay Report Signed Patient: Miri Soler MR#: [id number] : 1985 Acct:[id number] Age/Sex: 39 / F ADM Date: 06/16/25 Loc: NIYAH Attending Dr: Tong Liao MD Ordering Physician: Tong Liao MD Date of Service: 06/16/25 Procedure(s): XR sacrum coccyx min 2V Accession Number(s): [id number] cc: Tong Liao MD Reason for Exam: [...] by: Tong Guadalupe MD 06/16/2025 11:30 AM [facility] [place] By: Tong Guadalupe MD Signed By: <Electronically signed by Tong Guadalupe MD in OV> 06/16/25 1130 DD/ 1121 TD/TT: 06/16/25 1124 Engineer Third Assistant: [place] [address] XRay Report Signed Patient: Miri Soler MR#: [id number] : 1985 Acct:[id number] Age/Sex: 39 / F ADM Date: 06/16/25 Loc: NIYAH Attending Dr: Tong Liao MD Ordering Physician: Tong Liao MD Date of Service: 06/16/25 Procedure(s): XR sac rum coccyx min 2V Accession Number(s): [id number] cc: Tong Liao MD Reason for Exam: [...] by: Tong Guadalupe MD 06/16/2025 11:30 AM [facility] [place]ict[place] By: Tong Guadalupe MD Signed By: <Jess ramirez signed by Tong Guadalupe MD in OV> 06/16/25 1130 DD/ 1121 TD/TT: 06/16/25 1124 Engineer Third Assistant: MR head/brain wo con (Not ye t reviewed by provider) Interpretation: Performing Lab: Notes/Report: [address] [address] Magnetic Resonance Report Signed Patient: Miri Soler MR#: [id number] : 1985 Acct:[id number] Age/Sex: 39 / F ADM Date: 06/06/25 Loc: HO.MRI Attending Dr: Palma Lo CNP Ordering Physician: Palma Lo CNP Date of Service: 06/06/25 Procedure(s): MR head/brain wo con Accession Number(s): [id number] cc: Palma Lo CNP; Tong Liao MD Reason for Exam: R51.9 - Headache, unspecified EXAMINATION: MR BRAIN WITHOUT IV CONTRAST HISTORY: R51.9 - Headache, unspecified TECHNIQUE: Sagittal T1, and axial T1, FLAIR, T2, gradient echo, and diffusion weighted MR images of the brain were obtained. COMPARISON: There are no prior studies available for comparison. FINDINGS: The pituitary is normal in size. The cerebellar tonsils are normally located. The brain parenchyma is unremarkable, demonstrating normal zhu/white differentiation. No foci of abnormal signal intensity are identified. The ventricular system is normal in size and configuration. There is no mass effect or midline shift. No intra or extra-axial fluid collections are identified. There are no foci of restricted diffusion. Normal vascular flow voids are noted in the basilar and carotid arteries. The visualized paranasal sinuses are clear. MR/MR head/brain wo con IMPRESSION: Unremarkable MRI of the brain without contrast. Electronically signed by: Tong Guadalupe MD 06/07/2025 07:02 AM [facility] [place]ict[place] By: Tong Guadalupe MD Signed By: <Electronically signed by Tong Guadalupe MD in OV> 06/07/25 0702 DD/ 1835 TD/TT: 06/06/25 185 Engineer Third Assistant: [place] [address] Magnetic Resonance Report Signed Patient: Miri Soler MR#: [id number] : 1985 Acct:[id number] Age/Sex: 39 / F ADM Date: 06/06/25 Loc: HO.MRI Attending Dr: Paulina Lo CNP Ordering Physician: Palma Lo CNP Date of Service: 06/06/25 Procedure(s): MR hea d/brain wo con Accession Number(s): [id number] cc: Paulina Lo CNP; Tong Liao MD Reason for Exam: R51 .9 - Headache, unspecified EXAMINATION: MR BRAI N WITHOUT IV CONTRAST HISTORY: R51.9 - Hea dache, unspecified TECHNIQUE: Sagittal T1, and axial T1, FLAIR, T2, gradient echo, and diffusion weighted M R images of the brain were obtained. COMPARISON: There ar e no prior studies available for comparison. FINDINGS: The pituitary is nor mal in size. The cerebellar tonsils are normally located. The brain p arenchyma is unremarkable, demonstrating normal zhu/white different iation. No foci of abnormal signal intensity are identified. The vent ricular system is normal in size and configuration. There is no mass eff ect or midline shift. No intra or extra-axial fluid collections ar e identified. There are no foci of restricted diffusion. Normal vascular flow voids are noted in the basilar and carotid arteries. The visual ized paranasal sinuses are clear. M R/MR head/brain wo con IMPRESSION: Unremarkable MRI of the brain without contrast. Electronically john d by: Tong Guadalupe MD 06/07/2025 07:02 AM [facility] [place]ict[place] By: Tong Guadalupe MD Signed By: <Jess ramirez signed by Tong Guadalupe MD in OV> 06/07/25 0702 DD/ 1835 TD/TT: 06/06/25 1851 Engineer Third Assistant: Reason For Referral Reason Evaluate and Treat Chronic Constant Migraine Diagnosis 1 Chronic migraine wit h aura without status migrainosus, not intractable (G43.E09) Referral Organization Tong Liao III, MD Referring Provider First Name Tong Referring Provider Last Name Keshawn Referring Provider Speciality Internal edicine Referred Provider Neurology [facility] Referred Provider Specialty Neurology General Notes D 03/28/2025 11:06:09 AM > Faxed referral and progress note Referral Priority Routine Referral Appointment Date 05/05/2025 Reason Evaluate and Treat Hypothyroidism Right Thyroid Nodule Diagnosis 1 Acquired hypothyroid ism (E03.9) Diagnosis 2 Right thyroid nodule (E04.1) Referral Organization Tong Liao III, MD Referring Provider First Name Tong Referring Provider Last Name Liao Referring Provider Speciality Internal edicine Referred Provider [facility] Referred Provider Specialty Endocrinolog y General Notes DMariela 03/28/2025 11:05:37 AM > Faxed referral with progress note, Rene 03/30/2025 03:21:29 PM > [facility] Endocrine requesting most recent labs and US. Labs and US were sent to ATTN: Orestes Referral Priority Routine Referral Appointment Date 04/27/2025 Reason evaluate and treatme nt for lumbar and cervical spine pain acute and chronic pain ` Diagnosis 1 Cervical pain (neck) (M54.2) Diagnosis 2 Lumbar back pain (M5 4.50) Referral Organization Tong Liao III, MD Referring Provider First Name Tong Referring Provider Last Name Keshawn Referring Provider Speciality Internal edicine [facility] Special[facility] Physical Med ic[facility]ine General Notes Sho Preciado CMA 06/21 10:14:24 AM > ref/demo/ progress note/x rays faxed to [facility] pt called and made aware of this, Sho Preciado LOCK TECHNICIAN 06/30/2025 02:13:47 PM >I called [facility] they stated they have tried to contact the patient three times and have not heard back from her . I called the patient and asked her to call them to make appt and call our office back with this information Referral Priority Routine Medications Medication SIG (Take, [...] LEAST 2 HOURS BETWEEN EACH DOSE Active Immunizations Vaccine Route Administration Date Status [...] Problem Status W/U Status Risk Notes Problem 5133026 Former smoker (Z87.891) Active confirmed We discussed her strategy for relapse prevention in times of stress and illness. She seems motivated not to smoke. Problem 098815807 Family history of breast cancer (Z80.3) Active confirmed She says the unit supervisor is in the process of ordering testing for BRCA1 and BRCA2 Problem 745856661 Obesity (BMI 30-39.9) (E66.9) Active confirmed She has lost 7 pounds in her body mass index is 32. We reviewed her weight loss strategy. We made a plan to lose weight at a rate of one half of a pound per week through a diet restricted in fat carbohydrates and sodium combined with regular physical activity. Problem 723011374 Acquired hypothyroidism (E03.9) Active confirmed She will now begin the 150 mcg dose. Thyroid function tests will be checked in the near future. Problem 18787239 Essential hypertension (I10) Active confirmed She is tolerating the losartan well and will return in the near future to check her blood pressure.Her systolic blood pressure normal. She will return to the office in near future to recheck this. If necessary her medications will be adjusted. Problem 51189030 Cervical pain (neck) (M54.2) Active confirmed The headaches appear to be originating in posterior musculature as a result of nerve impingement in the cervical spine. She has been referred to rehabilitation medicine. 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 Problem 828870159 Lumbar back pain (M54.50) Active confirmed The lumbosacra l spine pain appears to be from degenerative causes. It does not radiate and there is no sciatica. I have ordered plain films of the lumbar spine and sacrum and referred her to rehabilitation medicine. She may benefit from physical therapy. Problem 705681641 Chronic migraine with aura without status migrainosus, not intractable (G43.E09) Active confirmed The requested medication will be reviewed. Problem 836630408 Right thyroid nodule (E04.1) Active confirmed She has a 6 m m right thyroid nodule which is being observed by endocrinology. It is not painful when she is free of symptoms. Vital Signs Heart Rate 80 /min 06/16/2025 Temperature 98.4 degrees Fahrenheit 06/16/2025 Blood pressure diastolic 82 mm Hg 06/16/2025 Height 64 in 06/16/2025 Blood pressure systolic 129 mm Hg 06/16/2025 Weight 194 lbs 06/16/2025 BMI 33.3 kg/m2 06/16/2025 Encounters Encounter Location Date Provider Diagnosis Tong Liao III, MD [address] [place] [address] [place] [address] 08/25/2024 Tong Liao Essential hypertensi on I10 ; Chronic migraine with aura without status migrainosus, not intractable G43.E09 ; Acquired hypothyroidism E03.9 ; Obesity (BMI 30-39.9) E66.9 ; Former smoker Z87.891 and 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 Tong Liao III, MD [address] [place] [address] [place] [address] 11/19/2024 Tong Liao Essential hypertensi on I10 ; Right thyroid nodule E04.1 ; Acquired hypothyroidism E03.9 ; Obesity (BMI 30-39.9) E66.9 and Former smoker Z87.891 Tong Liao III, MD [address] [place] [address] [place] [address] 03/24/2025 Tong Keshawn Essential hypertensi on I10 ; Acquired hypothyroidism E03.9 ; Obesity (BMI 30-39.9) E66.9 ; Family history of breast cancer Z80.3 ; History of intravenous drug use in remission Z87.898 ; Former smoker Z87.891 and 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 Tong Liao III, MD [address] [place] [address] [place] [address] 06/16/2025 Tong Keshawn Essential hypertensi on I10 ; Lumbar back pain M54.50 ; Cervical pain (neck) M54.2 ; Obesity (BMI 30-39.9) E66.9 ; Former smoker Z87.891 ; Acquired hypothyroidism E03.9 ; Chronic migraine with aura without status migrainosus, not intractable G43.E09 and Right thyroid nodule E04.1 Tong Liao III, MD [address] [place] [address] [place] [address] 09/08/2024 Tong Liao III, MD [address] [place] [address] [place] [address] 11/17/2024 Tong Liao III, MD [address] [place] [address] [place] [address] 03/07/2025 Tong Liao Essential hypertensi on I10 Assessments Encounter Date Diagnosis (ICD Code) Assessment Notes Treat ment Notes Treatment Clinical Notes 08/25/2024 Essential hypertension (ICD-10 - I10) She is tolerating the losartan well and will return in the near future to check her blood pressure. 08/25/2024 Chronic migraine with aura without status migrainosus, [...] necessary her medications will be adjusted. 06/16/2025 Essential hypertension (ICD-10 - I10) She [...] medicine. She may benefit from physical therapy. 03/07/2025 Essential hypertension (ICD-10 - I10) She is tolerating the losartan well and will return in the near future to check her blood pressure. 08/25/2024 Acquired hypothyroidism (ICD-10 - E03.9) She has been compliant with her medication. Thyroid function tests Her free T4 to be 1.9. Her dose of levothyroxine was reduced from 200 down to 150 mcg. 11/19/2024 Acquired hypothyroidism (ICD-10 - E03.9) She says she has been compliant with her medication and feels well. Her thyroid function tests are being managed by her coke loader. She denies any constipation or diarrhea or tachycardia. Her voice remains within normal limits. 03/24/2025 Obesity (BMI 30-39.9) (ICD-10 - E66.9) She has lost 7 pounds in her body mass index is 32. We reviewed her weight loss strategy. We made a plan to lose weight at a rate of one half of a pound per week through a diet restricted in fat carbohydrates and sodium combined with regular physical activity. 06/16/2025 Cervical pain (neck) (ICD-10 - M54.2) The headaches appear to be originating in posterior musculature as a result of nerve impingement in the cervical spine. She has been referred to rehabilitation medicine. 08/25/2024 Obesity (BMI 30-39.9) (ICD-10 - E66.9) We have reviewed her diet and nutrition. We made a plan to lose weight at a rate of one half of a pound per week. 11/19/2024 Obesity (BMI 30-39.9) (ICD-10 - E66.9) 03/24/2025 Family history of breast cancer (ICD-10 - Z80.3) She says the unit supervisor is in the process of ordering testing for BRCA1 and BRCA2 06/16/2025 Obesity (BMI 30-39.9) (ICD-10 - E66.9) She has lost 7 pounds in her body mass index is 32. We reviewed her weight loss strategy. We made a plan to lose weight at a rate of one half of a pound per week through a diet restricted in fat carbohydrates and sodium combined with regular physical activity. 08/25/2024 Former smoker (ICD-10 - Z87.891) We discussed her strategy for relapse prevention in times of stress and illness. She seems motivated not to smoke. 11/19/2024 Former smoker (ICD-10 - Z87.891) We discussed her strategy for relapse prevention in times of stress and illness. She seems motivated not to smoke. 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 06/16/2025 Former smoker (ICD-10 - Z87.891) We discussed her strategy for relapse prevention in times of stress and illness. She seems motivated not to smoke. 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 03/24/2025 Former smoker (ICD-10 - Z87.891) We discussed her strategy for relapse prevention in times of stress and illness. She seems motivated not to smoke. 06/16/2025 Acquired hypothyroidism (ICD-10 - E03.9) She will now begin the 150 mcg dose. Thyroid function tests will be checked in the near future. 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 06/16/2025 Chronic migraine with aura without status migrainosus, not intractable (ICD-10 - G43.E09) The requested medication will be reviewed. 06/16/2025 Right thyroid nodule (ICD-10 - E04.1) She has a 6 mm right thyroid nodule which is being observed by endocrinology. It is not painful when she is free of symptoms. Plan Of Treatment Pending Test Test Name Order Date PROFILE, FASTING (COMPREHENSIVE METABOLI C) 12/31/2019 PROFILE, FASTING (COMPREHENSIVE METABOLI C) 01/26/2024 PROFILE, FASTING (COMPREHENSIVE METABOLI C) 06/11/2023 PROFILE, FASTING (COMPREHENSIVE METABOLI C) 11/19/2024 PROFILE, FASTING (COMPREHENSIVE METABOLI C) 01/03/2022 PROFILE, FASTING (COMPREHENSIVE METABOLI C) 07/19/2020 PROFILE, FASTING (COMPREHENSIVE METABOLI C) 04/18/2020 PROFILE, RANDOM (COMPREHENSIVE METABOLIC ) 11/10/2019 PROFILE, RANDOM (COMPREHENSIVE METABOLIC ) 03/24/2025 PROFILE, RANDOM (COMPREHENSIVE METABOLIC ) 03/06/2023 PROFILE, RANDOM (COMPREHENSIVE METABOLIC ) 02/12/2023 PROFILE, RANDOM (COMPREHENSIVE METABOLIC ) 01/16/2022 PROFILE, RANDOM (COMPREHENSIVE METABOLIC ) 01/22/2023 LIPID PANEL 07/19/2020 LIPID PANEL 04/18/2020 LIPID PANEL 12/31/2019 FREE T4 (FT4) 01/22/2023 FREE T4 (FT4) 07/19/2020 FREE T4 (FT4) 04/18/2020 FREE T4 (FT4) 11/10/2019 FREE T4 (FT4) 03/06/2023 FREE T4 (FT4) 02/12/2023 FREE T4 (FT4) 01/03/2022 TSH (THYROID STIMULATING HORMONE) 2022 TSH (THYROID STIMULATING HORMONE) 2022 TSH (THYROID STIMULATING HORMONE) 2021 TSH (THYROID STIMULATING HORMONE) 2022 TSH (THYROID STIMULATING HORMONE) 2020 TSH (THYROID STIMULATING HORMONE) 2019 TSH (THYROID STIMULATING HORMONE) 2023 TSH (THYROID STIMULATING HORMONE) 2022 TSH (THYROID STIMULATING HORMONE) 2019 TSH (THYROID STIMULATING HORMONE) 2024 TSH (THYROID STIMULATING HORMONE) 2024 CBC w DIFF 03/24/2025 CBC w DIFF 11/19/2024 CBC w DIFF 01/16/2022 CBC w DIFF 03/06/2023 CBC w DIFF 02/12/2023 CBC w DIFF 01/03/2022 CBC w DIFF 01/22/2023 CBC w DIFF 07/19/2020 CBC w DIFF 04/18/2020 CBC w DIFF 12/31/2019 CBC w DIFF 06/11/2023 CBC w DIFF 11/10/2019 SED RATE (ESR) 11/10/2019 SED RATE (ESR) 11/17/2020 MONO TEST (HETEROPHILE AB) 01/16/2022 SPUTUM CULTURE AND GRAM STAIN 01/16/2022 XR BARIUM SWALLOW-ESOPHAGUS 04/22/2024 XR HAND RT 08/10/2019 CBC WITH AUTO DIFF 01/26/2024 Lipid Panel 06/11/2023 Lipid Panel 11/19/2024 Lipid Panel 01/03/2022 Lipid Panel 01/26/2024 Vitamin D 25-OH Total 01/03/2022 Free T4 (Free Thyroxine) 01/26/2024 Free T4 (Free Thyroxine) 06/11/2023 Free T4 (Free Thyroxine) 03/24/2025 Free T4 (Free Thyroxine) 11/19/2024 MR head/brain wo con 06/06/2025 XR lumbar spine 2-3V 06/16/2025 XR sacrum coccyx min 2V 06/16/2025 HIV Ab/Ag 01/26/2024 Next Appt Details Provider Name:Tong Coxrne , 08/04/2025 09:45:00 AM, [address] [place] [address] [address], [place], [address], Provider Name:Tong Power Keshawn , 03/27/2026 09:30:00 AM, [address] [place] [address] [address], [place], [address], Insurance Providers Payer Name Payer Address Payer Phone Subscriber Number Group Number Insured Name Patient Relationship to Insured Coverage Start Date Coverage End Date [facility] [address] [facility] [id number] [facility] [place] [phone] [id number] Miri Max Self - patient is the [...] biopsy of cervix for abnormal Pap smear [id number] foreign body removed left wrist Hospitalization History Reason Date(Month/Year) No history
--- OUTSIDE RECORDS SUMMARY | 2025-06-30 14:26 | XMS_ITS | Encounter Summary ---
Author Organization [facility] Address [address] [place] [address] Care Team Providers Care Flange Turner Name Role Phone Tong Liao MD Primary Care Provider [phone] Encounter Details Date Type Department Care Team (Latest Contact Info) Description 12/23/2024 Lab Requisition [facility] [address] [place] [address] Darion Lance MD [address] [address] Encounter for screening for infections [...] MOLECULAR DIAGNOSTICS METHOD 12/23/2024 3:[address] [facility] Chlamydia trachomatis PCR Negative Negative LAB MOLECULAR DIAGNOSTICS METHOD 12/23/2024 3:[address] [facility] Swab Cervix uteri structure / Unknown 12/23/2024 12/23/2024 12:44 PM EDT us Darion Lance MD LAB MICROBIOLOGY - GENERAL ORD ERABLES Final Result [facility] [address] [place] [address], documented in this encounter Visit Diagnoses Diagnosis Encounter for screening for infections with a predominantly sexual mode of transmission documented in this encounter Care Teams Flange Turner Relationship Specialty Start Date End Date Tong Liao MD PCP - General Oncology 01/20/25 documented as of this encounter
--- OUTSIDE RECORDS SUMMARY | 2025-06-30 14:26 | XMS_ITS | Encounter Summary ---
Author Organization [facility] Address [address] [place] [address] Care Team Providers Care Features Editor Name Role Phone Tong Liao MD Primary Care Provider [phone] Encounter Details Date Type Department Care Team (Latest Contact Info) Description 12/24/2024 Lab Requisition [facility] [address] [facility] [place] [employer] [place] [address] Darion Lance MD [address] [address] Encounter for gynecological examination (general) [...] LAB MICROBIOLOGY METHOD 12/29/2024 3:28 PM EDT [facility] Brushing/Spatula Cervix uteri structure / Unknown 12/23/2024 12/28/2024 3:14 PM EDT us Darion Lance MD LAB MOLECULAR DIAGNOSTICS STEPHANIE NGUYEN Final Result [facility] [address] [place] [address], * (ABNORMAL) Pap smear (12/23/2024 12:00 AM EDT) Interpretation Atypical squamous cells of undetermined significance(A) 12/28/2024 3:14 PM EDT [facility] at 1514 EDT General Categorization Epithelial cell abnormality, see interpretation 12/28/2024 3:14 PM EDT [facility] LMP 12/13/2024 12/28/2024 3:14 PM EDT [facility] Specimen Adequacy Satisfactory for evaluation, endocervical/tra nsformation zone component present 12/28/2024 3:14 PM EDT [facility] Pap Methodology Liquid Based Pap Test 12/28/2024 3:14 PM EDT [facility] Disclaimer The Pap test is a screening test which carries an inherent false negative rate. These test results should be correlated with the patient's clinical findings and history. This Pap test was processed using an automated screening system. Technical cytopathology services provided by [facility], at [address] [place] [address] (CLIA # [id number]/Leona Leyva MD, Logistics Operations Director.) 12/28/2024 3:14 PM EDT [facility] Console Pap Interpretation Reported 12/28/2024 3:14 PM T [facility] Brushing/Spatula Cervix uteri structure / Unknown 12/23/2024 12/24/2024 7:16 AM EDT us Darion Lance MD LAB CYTOLOGY ORDERABLES Final Result [facility] [address] [place] [address], documented in this encounter Visit Diagnoses Diagnosis Encounter for gynecological examination (general) (routine) without abnormal findings documented in this encounter Care Teams Features Editor Relationship Specialty Start Date End Date Tong Liao MD PCP - General Oncology 01/20/25 documented as of this encounter
== END 2025-06-30 11:38 | disposition home or self-care (01) ==
LOC: HO.HSM 11:02
PROVIDERS: PCP Internal Medicine Medical Oncology; Visit Provider Nurse Practitioner
DX: R51.9 Headache, unspecified (principal); G43.009 Migraine without aura, not intractable, without status migrainosus; G44.209 Tension-type headache, unspecified, not intractable; M25.512 Pain in left shoulder; M79.18 Myalgia, other site
CPT/HCPCS: 99214

== ENCOUNTER 2025-07-01 09:52 | Outpatient (AMB) | payer OTHER, SELFPAY ==
--- OUTSIDE RECORDS SUMMARY | 2024-09-08 10:47 | XMS_ITS ---
Author Organization Tong Liao III, MD Address [address] [place] [address] [place] [address] Care Team Providers Care Recruiting Consultant Name Role Phone Dr. Tong Liao III [...] Date Provider Diagnosis Tong Liao III, MD [address] [place] [address] [place] [address] 09/08/2024 Tong Liao Plan Of Treatment Medication Medication Name Sig Start Date Stop Date Notes SUMAtriptan Succinate 100 MG 1 TABLET OR ALLY TWICE DAILY AT LEAST 2 HOURS BETWEEN EACH DOSE for 25 days Next Appt Details Provider Name:Tong Liao , 08/04/2025 09:45:00 AM, [address] [place] [address] [place], [address], Provider Name:Tong Liao , 03/27/2026 09:30:00 AM, [address] [place] [address] [place], [address], Progress Notes * Miri SOLERDOB:02/1986 (39 yo F)Acc No.[id number]:09/08/2024 Patient: Miri JAQUEZ :1985 A ge:39 Y S ex:Female Address:[address] [place] [address], [place], [address] * Refills Refill SUMAtriptan Succinate Tablet, 100 MG, ORALLY, 50, 1 TABLET, TWICE DAILY AT LEAST 2 HOURS BETWEEN EACH DOSE, 25 days, Refills=11 * true * Date: Generated for Judy buckley/Yazmin/Missyitting on: 09/01/2024 10:55 AM EST
--- OUTSIDE RECORDS SUMMARY | 2024-11-17 09:50 | XMS_ITS ---
Author Organization Tong Liao III, MD Address [address] [place] [address] [place] [address] Care Team Providers Care Project Engineer Name Role Phone Dr. Tong Laio III Primary Care Provider REASON FOR VISIT discuss ultrasound results Social History Sex Assigned At : Social History Observation Description Sex Assigned At Female Encounters Encounter Location Date Provider Diagnosis Tong Liao III, MD [address] [place] [address] [place] [address] 11/17/2024 Tong Liao Plan Of Treatment Next Appt Details Provider Name:Tong Liao , 08/04/2025 09:45:00 AM, [address] [place] [address] [place], [address], Provider Name:Tong Liao , 03/27/2026 09:30:00 AM, [address] [place] [address] [place], [address], Progress Notes * Miri SOLERDOB:02/1986 (39 yo F)Acc No.[id number]:11/17/2024 Patient: Miri JAQUEZ :1985 A ge:39 Y S ex:Female Address:[address], [place], [address] * true * Date: Generated for Massieli ina/Yazmin/eTransmitting on: 09/01/2024 10:54 AM EST
--- OUTSIDE RECORDS SUMMARY | 2024-11-19 05:00 | XMS_ITS ---
Author Organization Tong Liao III, MD Address [address] [place] [address] [address] [place] [address] Care Team Providers Care Pellet Press Operator Name Role Phone Dr. Tong Liao III [...] Problem Status W/U Status Risk Notes Problem [id number] Right thyroid nodule (E04.1) Active confirmed She has a 6 mm right thyroid nodule which is being observed by endocrinolog y. It is not painful when she is free of symptoms. Vital Signs Height 64 in 11/19/2024 Weight 206 lbs 11/19/2024 BMI 35.36 kg/m2 11/19/2024 Encounters Encounter Location Date Provider Diagnosis Tong Liao III, MD [address] [place] [address] [address] [place], [place] [address] 11/19/2024 Tong Liao Essential hypertensi on I10 [...] function tests are being managed by her family day carer. She denies any constipation or diarrhea or [...] Provider Name:Tong Liao , 08/04/2025 09:45:00 AM, [address] [place] [address] [address], [place], [address], Provider Name:Tong Liao , 03/27/2026 09:30:00 AM, [address] [place] [address] [address], [place], [address], Progress Notes * ReneBYRONOMAR DanielledebbieDOB:02/1986 (39 yo F)Acc No.[id number]:11/19/2024 Patient: Miri JAQUEZ Provider: Gretchen Liao MD :1985 A ge:39 Y S ex:Female Date:11/19/2024 Address:[address] [place] [address], [place], [id number] Subjective: * Chief Complaints: * 6 mm thyroid nodule mid right lobeHypertensionHypothyroidChronic migrainesMethadone maintenance * HPI: * : This telehealth visit took place over 15 minutes with the patient at home and me in my office. She gave consent for billing. She called for the results of her recent thyroid ultrasound. She is under the care of an family day carer. The ultrasound recently had showed a 6 [...] of provider rendering services: { ...} [address] [facility] [address] [facility] [address] L ocation of patient: maria luisa ddrthee [...] History: f oreign body removed left wrist [id number] colposcopy and [facility] biopsy of cervix for [...] no sisters. She has no children. Her flow specialist is in the process of testing her [...] children. 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 She is single but she is engaged [...] function tests are being managed by her family day carer. She denies any constipation or diarrhea or [...] 11/19/2024 Generated for Judy buckley/Yazmin/Fayeransmitting on: 1 09/01/2024 10:54 AM EST History and Physical Notes * HPI (History of Present Illness) Category Sub-Category Detail Notes [facility] {...} [address] [place] [address] [place], [place] [id number] Location of patient:: address listed in demographics [...]
--- OUTSIDE RECORDS SUMMARY | 2025-01-26 12:15 | XMS_ITS ---
Author Organization Tong Liao III, MD Address [address] [place] [address] DR VILLALPANDORACHELALYSSA [address] Care Team Providers Care Television Script Writer Name Role Phone Dr. Tong Liao III Primary Care Provider Allergies Allergen (clinical drug ingredient) Drug/Non Drug Allergy documented on EMR Reaction Allergy Type Onset Date Status emtricitabine / tenofovir disoproxil Truvada Unknown Drug Allergy Active metronidazole Flagyl Unknown Drug Allergy Act laurie REASON FOR VISIT Annual Exam Medications Medication SIG (Take, Route, Frequency, Duration) Notes Start Date End Date Status hydroCHLOROthiazide 25 MG TAKE 1 TABLET BY MOUTH EVERY MORNING Active Wegovy 0.25 MG/0.5ML 0.5 mL Subcutaneous once a week for four weeks 11/18/2023 Active Famotidine 10 MG 1 tablet as needed Orally Twice a day 01/22/2023 Active Levothyroxine Sodium 150 MCG 1 tablet in the morning on an empty stomach Orally Once a day 03/25/2024 Active SUMAtriptan Succinate 100 MG 1 TABLET OR ALLY TWICE DAILY AT LEAST 2 HOURS BETWEEN EACH DOSE Active Multivitamin - 1 tablet Orally Once a day 01/22/2023 Active Methadone HCl 10 MG/5ML 105 ml as needed Orally Once a day 96 mg/d Active Social History Tobacco Use: Social History Observation Description Date Details (start date - stop date) Former Smoker NA - NA Sex Assigned At : Social History Observation Description Sex Assigned At Female Tobacco Use/Smoking Question Answer Notes Patient is a former smoker How long has it been since you last smoked? 5-10 years Additional Findings: Tobacco Non-User Ex-cigaret te smoker Encounters Encounter Location Date Provider Diagnosis Tong Liao III, MD [address] [place] [address] [place] [address] 01/26/2025 Tong Liao Essential hypertensi on I10 Assessments Encounter Date Diagnosis (ICD Code) Assessment Notes Treat ment Notes Treatment Clinical Notes 01/26/2025 Essential hypertension (ICD-10 - I10) She is tolerating the losartan well and will return in the near future to check her blood pressure. Plan Of Treatment Medication Medication Name Sig Start Date Stop Date Notes hydroCHLOROthiazide 25 MG TAKE 1 TABLET BY MOUTH EVERY MORNING Wegovy 0.25 MG/0.5ML 0.5 mL Subcutaneous once a week for four weeks 11/18/2023 Famotidine 10 MG 1 tablet as needed O rally Twice a day 01/22/2023 Levothyroxine Sodium 150 MCG 1 tablet in the morning on an empty stomach Orally Once a day 03/25/2024 SUMAtriptan Succinate 100 MG 1 TABLET OR ALLY TWICE DAILY AT LEAST 2 HOURS BETWEEN EACH DOSE Multivitamin - 1 tablet Orally Once a day 01/22/2023 Methadone HCl 10 MG/5ML 105 ml as needed Orally Once a day 96 mg/d Next Appt Details Provider Name:Tong Liao , 08/04/2025 09:45:00 AM, [address] [place] [address] [address] AGUERO, ALYSSA VELA, [address], Provider Name:Tong Laio , 03/27/2026 09:30:00 AM, [address] [place] [address] [place], [address], Progress Notes * Miri SOLERDOB:02/1986 (39 yo F)Acc No.[id number]:01/26/2025 Progress Notes Patient: Miri JAQUEZ Provider: Gretchen Liao MD :1985 A ge:39 Y S ex:Female Date:01/26/2025 Address:[address] [place] [phone] Subjective: * Chief Complaints: * 1 . Annual Exam. * HPI: C OVID-19 Screening: Questions H ave you had any new onset fever, chills, cough, congestion, sore throat, shortness of breath, muscle aches? N o * ROS: G eneral/Constitutional: pain o nly normal aches and pains. C hills d enies.?Fatigue a dmits. F ever d enies. E NT: Decreased hearing d enies. R espiratory: Cough d enies. C ardiovascular: Chest pain with exertion d enies. D yspnea on exertion?denies. S hortness of breath d enies. G astrointestinal: Constipation d enies. D ecreased appetite d enies.?Diarrhea d enies. H eartburn d enies. N ausea d enies. R ectal bleeding?denies. V omiting d enies. H ematology: bruising [...] speaking d enies. D izziness d enies.?Headache d enies. L ow back pain d enies. P sychiatric: Depressed mood d enies. 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 * Surgical History: f oreign body removed left wrist , [id number] , colposcopy and Cone biopsy of cervix for abnormal Pap smear , 11/27/2022, No history . * Hospitalization/Major Diagno stic Procedure: N o history . * Family History: F ather: 54 yrs, diagnosed with CVD, HTN. M other: alive 72 yrs, diagnosed with CVD, Cancer, HTN. S iblings: alive. 2 brother(s) - healthy. . Her father of coronary artery disease and myocardial infarction. Her mother is alive with history of cancer of the breast twice in her 40's and 50s and of the cervix. Her maternal grandmather had breast cancer twice in her fifties. She has 2 healthy brothers and no sisters. She has no children. Her bender hand is in the process of testing her for BRCA1 and BRCA2. * Social History: T obacco Use: T obacco Use/Smoking P atfidelia is a f ormer smoker H ow long has it been since you last smoked??5-10 years A dditional Findings: Tobacco Non-User E x-cigarette smoker S he does not smoke cigarettes but uses vaping. 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 She has no children. 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 She is single but she is engaged and her fiance is HIV positive. She says that his HIV titers are low and he takes his medication. They are using barrier protection. She was given Truvada to prevent transmission but the drug made her very ill. * Medications: T aking SUMAtriptan Succinate 100 MG Tablet 1 TABLET ORALLY TWICE DAILY AT LEAST 2 HOURS BETWEEN EACH DOSE , Taking hydroCHLOROthiazide 25 MG Tablet TAKE 1 TABLET BY MOUTH EVERY MORNING , Taking Wegovy 0.25 MG/0.5ML Solution Auto-injector 0.5 mL Subcutaneous once a week for four weeks , Taking Famotidine 10 MG Tablet 1 tablet as needed Orally Twice a day , Taking Multivitamin - Tablet 1 tablet Orally Once a day , Taking Methadone HCl 10 MG/5ML Solution 105 ml as needed Orally Once a day , Notes to Pharmacist: 96 mg/d, Taking Levothyroxine Sodium 150 MCG Tablet 1 tablet in the morning on an empty stomach Orally Once a day , Medication List reviewed and reconciled with the patient * Allergies: F tiarra, Tyronuvdonald. Objective: * Vitals: * Examination: G eneral Examination: GENERAL APPEARANCE: p leasant, well nourished, well developed, in no acute distress, calm and relaxed. HEAD: a traumatic, normocephalic. EYES: e ericka, perrla, anicteric, conjugate. EARS: n ormal. NOSE: s eptum intact. ORAL CAVITY: n ormal, unremarkable. NECK/THYROID: n o jugular venous distention, no carotid bruit, thyroid normal. LYMPH NODES: n o enlarged lymph nodes,spleen normal. SKIN: n o suspicious lesions, anicteric. HEART: n o clicks, gallops, murmurs, or rubs, regular rhythm, S1, S2 normal, no s3, or vascular bruits. LUNGS: c lear to auscultation . BREASTS: no masses palpable bilaterally. ABDOMEN: b owel sounds normal, no ascites, no organomegaly, no mass. RECTAL EXAM: n ot examined. MUSCULOSKELETAL: e xtremities unremarkable, no clubbing, cyanosis or edema. PERIPHERAL PULSES: n ormal. NEUROLOGIC: a lert and oriented, cranial nerves 2-12 grossly intact, deep tendon reflexes 2+ symmetrical, motor strength normal upper and lower extremities, sensory exam intact. PSYCH: a lert, oriented. Assessment: * Assessment: 1. E ssential hypertension - I10 N otes :She is tolerating the losartan well and will return in the near future to check her blood pressure. Plan: * Treatment: 2. O thers Continue SUMAtriptan Succinate Tablet, 100 MG, 1 TABLET, ORALLY, TWICE DAILY AT LEAST 2 HOURS BETWEEN EACH DOSE; C ontinue hydroCHLOROthiazide Tablet, 25 MG, TAKE 1 TABLET BY MOUTH EVERY MORNING; Continue Wegovy Solution Auto-injector, 0.25 MG/0.5ML, 0.5 mL, Subcutaneous, once a week for four weeks. * Images: * The named appointment provid er may or may not be the originator of this progress note, and it is not deemed complete until electronically signed by the appointment provider. Sign off status: Pending * Provider: Gretchen Liao MD Date: 0 01/26/2025 Generated for Judy buckley/Yazmin/Jaxsmitting on: 1 09/01/2024 10:55 AM EST History and Physical Notes * HPI (History of Present Illness) Category Sub-Category Detail Notes COVID-19 Screening Questions Have you had any new onset fever, chills, cough, congestion, sore throat, shortness of breath, muscle aches?: No Examination Category Sub-Category Detail Notes General Examination GENERAL APPEARANCE: pleasant , well nourished, well developed, in no acute distress, calm and relaxed HEAD: atraumatic, normocep halic EYES: eomi, perrla, anicte yuliana, conjugate EARS: normal NOSE: septum intact NECK/THYROID: no jugular venous di stention, no carotid bruit, thyroid normal HEART: no clicks, gallops, murmurs, or rubs, regular rhythm, S1, S2 normal, no s3, or vascular bruits LUNGS: clear to auscultatio n ABDOMEN: bowel sounds normal, no ascites, no organomegaly, no mass NEUROLOGIC: alert and oriented, cranial nerves 2-12 grossly intact, deep tendon reflexes 2+ symmetrical, motor strength normal upper and lower extremities, sensory exam intact SKIN: no suspicious lesion s, anicteric PERIPHERAL PULSES: normal BREASTS: no masses palpable b ilaterally MUSCULOSKELETAL: extremities unremark able, no clubbing, cyanosis or edema LYMPH NODES: no enlarged lymph no wilfrid,spleen normal RECTAL EXAM: not examined PSYCH: alert, oriented ORAL CAVITY: normal, unremarkable
--- OUTSIDE RECORDS SUMMARY | 2025-02-09 12:00 | XMS_ITS ---
Author Organization Tong Liao III, MD Address [address] [place] [address] DR VILLALPANDORACHELALYSSA [address] Care Team Providers Care Superintendent Colliery Name Role Phone Dr. Tong Liao III Primary Care Provider Allergies Allergen (clinical drug ingredient) Drug/Non Drug Allergy documented on EMR Reaction Allergy Type Onset Date Status emtricitabine / tenofovir disoproxil Truvada Unknown Drug Allergy Active metronidazole Flagyl Unknown Drug Allergy Act laurie REASON FOR VISIT Annual Exam Medications Medication SIG (Take, Route, Frequency, Duration) Notes Start Date End Date Status Wegovy 0.25 MG/0.5ML 0.5 mL Subcutaneous once a week for four weeks 11/18/2023 Active Famotidine 10 MG 1 tablet as needed Orally Twice a day 01/22/2023 Active SUMAtriptan Succinate 100 MG 1 TABLET OR ALLY TWICE DAILY AT LEAST 2 HOURS BETWEEN EACH DOSE Active hydroCHLOROthiazide 25 MG TAKE 1 TABLET BY MOUTH EVERY MORNING Active Levothyroxine Sodium 150 MCG 1 tablet in the morning on an empty stomach Orally Once a day 03/25/2024 Active Methadone HCl 10 MG/5ML 105 ml as needed Orally Once a day 96 mg/d Active Multivitamin - 1 tablet Orally Once a day 01/22/2023 Active Social History Tobacco [...] Date Provider Diagnosis Tong Liao III, MD [address] [place] [address] [place] [address] 02/09/2025 Tong Liao Essential hypertensi on I10 Assessments Encounter Date Diagnosis (ICD Code) Assessment Notes Treat ment Notes Treatment Clinical Notes 02/09/2025 Essential hypertension (ICD-10 - I10) She is tolerating the losartan well and will return in the near future to check her blood pressure. Plan Of Treatment Medication Medication Name Sig Start Date Stop Date Notes Wegovy 0.25 MG/0.5ML 0.5 mL Subcutaneous once a week for four weeks 11/18/2023 Famotidine 10 MG 1 tablet as needed O rally Twice a day 01/22/2023 SUMAtriptan Succinate 100 MG 1 TABLET OR ALLY TWICE DAILY AT LEAST 2 HOURS BETWEEN EACH DOSE hydroCHLOROthiazide 25 MG TAKE 1 TABLET BY MOUTH EVERY MORNING Levothyroxine Sodium 150 MCG 1 tablet in the morning on an empty stomach Orally Once a day 03/25/2024 Methadone HCl 10 MG/5ML 105 ml as needed Orally Once a day 96 mg/d Multivitamin - 1 tablet Orally Once a day 01/22/2023 Next Appt Details Provider Name:Tong Liao , 08/04/2025 09:45:00 AM, [address] [place] [address] MARIS[address] AGUERO, ALYSSA VELA, [address], Provider Name:Tong Liao , 03/27/2026 09:30:00 AM, [address] [place] [address] [place], [address], Progress Notes * Miri SOLERDOB:02/1986 (39 yo F)Acc No.[id number]:02/09/2025 Progress Notes Patient: Miri JAQUEZ Provider: Gretchen Liao MD :1985 A ge:39 Y S ex:Female Date:02/09/2025 Address:[address] [place] [phone] Subjective: * Chief Complaints: * 1 . [...] f oreign body removed left wrist , [id number] , colposcopy and Cone biopsy of cervix [...] no sisters. She has no children. Her thermal surfacing machine operator is in the process of testing her [...] children. 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 She is single but she is [...] * Provider: Gretchen Liao MD Date: 0 02/09/2025 Generated for Judy buckley/Yazmin/Jaxsmitting on: 09/01/2024 10:55 AM EST History and Physical [...]
--- OUTSIDE RECORDS SUMMARY | 2025-03-07 06:16 | XMS_ITS ---
Author Organization Tong Liao III, MD Address [address] [place] [address] [place] [address] Care Team Providers Care Grain Receiver Name Role Phone Dr. Tong Liao III Primary Care Provider REASON FOR VISIT Rx Request Medications Medication SIG (Take, Route, Frequency, Duration) Notes Start Date End Date Status Levothyroxine Sodium 150 MCG 1 tablet in the morning on an empty stomach Orally Once a day for 90 days 03/25/2024 Active Social History Sex Assigned At : Social History Observation Description Sex Assigned At Female Encounters Encounter Location Date Provider Diagnosis Tong Liao III, MD [address] [place] [address] [place] [address] 03/07/2025 Tong Liao Essential hypertensi on I10 Assessments Encounter Date Diagnosis (ICD Code) Assessment Notes Treat ment Notes Treatment Clinical Notes 03/07/2025 Essential hypertension (ICD-10 - I10) She is tolerating the losartan well and will return in the near future to check her blood pressure. Plan Of Treatment Medication Medication Name Sig Start Date Stop Date Notes Levothyroxine Sodium 150 MCG 1 tablet in the morning on an empty stomach Orally Once a day for 90 days 03/25/2024 Next Appt Details Provider Name:Tong Liao , 08/04/2025 09:45:00 AM, [address] [place] [address] [place], [address], Provider Name:Tong Liao , 03/27/2026 09:30:00 AM, [address] [place] [address] [place], [address], Progress Notes * Miri SOLERDOB:02/1986 (39 yo F)Acc No.[id number]:03/07/2025 Patient: Miri JAQUEZ :1985 A ge:39 Y S ex:Female Address:[address] [place] [address], [place], [address] * Refills Refill Levothyroxine Sodium Tablet, 150 MCG, Orally, 90 Tablet, 1 tablet in the morning on an empty stomach, Once a day, 90 days, Refills=3 * true * Date: Generated for Judy buckley/Yazmin/Missyitting on: 09/01/2024 10:55 AM EST
--- OUTSIDE RECORDS SUMMARY | 2025-03-24 04:00 | XMS_ITS ---
Author Organization Tong Liao III, MD Address [address] [place] [address] [place] [id number] Care Team Providers Care Lime Burner Name Role Phone Dr. Tong Liao III Primary Care Provider [phone] Allergies Allergen (clinical drug ingredient) Drug/Non Drug [...] Provider Speciality Internal edicine Referred Provider Neurology [facility] Referred Provider Specialty Neurology General Notes [...] Referring Provider Speciality Internal edicine Referred Provider [facility], [facility] Referred Provider Specialty Endocrinolog y General Notes 03/28/2025 11:05:37 AM > Faxed referral with progress note, 03/30/2025 03:21:29 PM > [facility] Endocrine requesting most recent labs and US. [...] Date Provider Diagnosis Tong Liao III, MD [address] [place] [address] [place] [phone] 03/24/2025 Tong Liao Essential hypertensi on I10 [...] cancer (ICD-10 - Z80.3) She says the pool hand is in the process of ordering testing [...] 03/24/2025, Evaluate and Treat Chronic Constant Migraine, [facility] 03/24/2025 03/24/2025, Evaluate and Treat Hypothyroidism Right Thyroid Nodule, [facility] Next Appt Details Follow Up: 4 Weeks, Reason: Telehealth Provider Name:Tong Liao , 08/04/2025 09:45:00 AM, [address] [place] [address] [address], [place], [address], Provider Name:Tong Liao , 03/27/2026 09:30:00 AM, [address] [place] [address] [address], [place], [phone], Progress Notes * Miri SOLERDOB:02/1986 (39 yo F)Acc No.[id number]:03/24/2025 Progress Notes Patient: Miri JAQUEZ Provider: Gretchen Liao MD :1985 A ge:39 Y S ex:Female Date:03/24/2025 Address:[address] [place] [address], [employer], [id number] Subjective: * Chief Complaints: * A nnual [...] History: rukhsana patterson body removed left wrist [id number] colposcopy and [facility] biopsy of cervix for [...] no sisters. She has no children. Her pool hand is in the process of testing [...] children. 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 She is single but she is [...] - Z80.3 N otes :She says the pool hand is in the process of ordering testing [...] (Free Thyroxine) Referral To:[facility]ology [facility] Endocrinology Reason:Evaluate and Treat Hypothyroidism Right Thyroid Nodule 3. O besity (BMI 30-39.9) L AB: PROFILE, RANDOM (COMPREHENSIVE METABOLIC) L AB: TSH (THYROID STIMULATING HORMONE) L AB: CBC w DIFF L AB: Free T4 (Free Thyroxine) 4. O thers Referral To:[facility] Neurology Reason:Evaluate and Treat Chronic Constant Migraine Referral To:Endocrinology & Diabetes [facility] Endocrinology Reason:Evaluate and Treat Hypothyroidism Right [...] 03/24/2025 Generated for Judy buckley/Yazmin/eTransmitting on: 1 09/01/2024 10:54 AM EST History [...] Provider Not es 03/24/2025 Tong Liao Neurology [facility] Evaluate and Treat Chronic Constant Migraine 03/24/2025 Tong Liao [facility], [facility] Evaluate and Treat Hypothyroidism Right Thyroid Nodule
--- OUTSIDE RECORDS SUMMARY | 2025-04-21 12:00 | XMS_ITS ---
Author Organization Tong Liao III, MD Address [address] [place] [address] [place] [address] Care Team Providers Care Front Desk Monitor Name Role Phone Dr. Tong Liao III Primary Care Provider [phone] REASON FOR VISIT Follow up Social History Sex Assigned At : Social History Observation Description Sex Assigned At Female Encounters Encounter Location Date Provider Diagnosis Tong Liao III, MD [address] [place] [address] [place] [address] 04/21/2025 Tong Liao Plan Of Treatment Next Appt Details Provider Name:Tong Liao , 08/04/2025 09:45:00 AM, [address] [place] [address] [place], [address], Provider Name:Tong Liao , 03/27/2026 09:30:00 AM, [address] [place] [address] [place], [address], Progress Notes * LeeJEIMYOMARAngeliaarturDOB:02/1986 (39 yo F)Acc No.[id number]:04/21/2025 Patient: Miri JAQUEZ Provider: Gretchen Liao MD :1985 A ge:39 Y S ex:Female Date:04/21/2025 Address:[address], [id number] Subjective: * Chief Complaints: * 1 . Follow up. * Medical History: Objective: * Vitals: Assessment: Plan: * Treatment: * Images: * The named appointment provid er may or may not be the originator of this progress note, and it is not deemed complete until electronically signed by the appointment provider. Sign off status: Pending * Provider: Gretchen Liao MD Date: 1 Generated for Judy buckley/Yazimn/Ruslan on: 09/01/2024 10:54 AM EST
--- OUTSIDE RECORDS SUMMARY | 2025-06-14 12:00 | XMS_ITS ---
Author Organization Tong Liao III, MD Address [address] [place] [address] [place] [address] Care Team Providers Care Leather Repairer Name Role Phone Dr. Tong Liao III Primary Care Provider Allergies Allergen (clinical drug ingredient) Drug/Non Drug Allergy documented on EMR Reaction Allergy Type Onset Date Status emtricitabine / tenofovir disoproxil Truvada Unknown Drug Allergy Active metronidazole Flagyl Unknown Drug Allergy Act laurie REASON FOR VISIT New Concern Medications Medication SIG (Take, Route, Frequency, Duration) Notes Start Date End Date Status Propranolol HCl 10 MG 1 tablet on an emp ty stomach Orally every 12 hrs 03/24/2025 Active SUMAtriptan Succinate 100 MG 1 TABLET OR ALLY TWICE DAILY AT LEAST 2 HOURS BETWEEN EACH DOSE Active hydroCHLOROthiazide 25 MG TAKE 1 TABLET BY MOUTH EVERY MORNING Active Famotidine 10 MG 1 tablet as needed Orally Twice a day 01/22/2023 Active Multivitamin - 1 tablet Orally Once [...] Additional Findings: Tobacco non-user Ex-cigaret te smoker Encounters Encounter Location Date Provider Diagnosis Tong Liao III, MD [address] [place] [address] [place] [address] 06/14/2025 Tong Liao Essential hypertensi on I10 Assessments Encounter Date Diagnosis (ICD Code) Assessment Notes Treat ment Notes Treatment Clinical Notes 06/14/2025 Essential hypertension (ICD-10 - I10) She is tolerating the losartan well and will return in the near future to check her blood pressure.Her systolic blood pressure slightly high. She will return to the office in near future to recheck this. If necessary her medications will be adjusted. Plan Of Treatment Medication Medication Name Sig Start Date Stop Date Notes Propranolol HCl 10 MG 1 tablet on an emp ty stomach Orally every 12 hrs 03/24/2025 SUMAtriptan Succinate 100 MG 1 TABLET OR ALLY TWICE DAILY AT LEAST 2 HOURS BETWEEN EACH DOSE hydroCHLOROthiazide 25 MG TAKE 1 TABLET BY MOUTH EVERY MORNING Famotidine 10 MG 1 tablet as needed O rally Twice a day 01/22/2023 Multivitamin - 1 tablet Orally Once a day 01/22/2023 Levothyroxine Sodium 150 MCG 1 tablet in the morning on an empty stomach Orally Once a day 03/25/2024 Next Appt Details Provider Name:Tong Jannet Keshawn , 08/04/2025 09:45:00 AM, [address] [place] [address] [address], [place], [address], Provider Name:Tong Jannet Keshawn , 03/27/2026 09:30:00 AM, [address] [place] [address] [address], [place], [address], Progress Notes * MEMO nAgeliaarturDOB:02/1986 (39 yo F)Acc No.[id number]:06/14/2025 Progress Notes Patient: Miri JAQUEZ Provider: Gretchen Liao MD :1985 A ge:39 Y S ex:Female Date:06/14/2025 Address:[address] [place] [address], [place], [id number] Subjective: * Chief Complaints: * 1 . New Concern. * HPI: C OVID-19 Screening: Questions H [...] f oreign body removed left wrist , [id number] , colposcopy and Cone biopsy of cervix [...] no sisters. She has no children. Her schedule announcer is in the process of testing her for BRCA1 and BRCA2. * Social History: T obacco Use: T obacco Control (Standard) T obacco use: F ormer smoker H ow long has it been since you last smoked??5-10 years A dditional Findings: Tobacco non-user E x-cigarette smoker S he does not smoke cigarettes but uses vaping. 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 She has no children. 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 She is single but she [...] TABLET BY MOUTH EVERY MORNING , Taking Famotidine 10 MG Tablet 1 tablet as needed Orally Twice a day , Taking Multivitamin - Tablet 1 tablet Orally Once a day , Taking Levothyroxine Sodium 150 MCG Tablet 1 tablet in the morning on an empty stomach Orally Once a day , Taking Propranolol HCl 10 MG Tablet 1 tablet on an empty stomach Orally every 12 hrs , Medication List reviewed and reconciled with the patient * Allergies: F lagyl, Truvada. Objective: * Vitals: * Examination: G [...] If necessary her medications will be adjusted. Plan: * Treatment: * Images: * The named appointment provid er may or may not be the originator of this progress note, and it is not deemed complete until electronically signed by the appointment provider. Sign off status: Pending * Provider: Gretchen Liao MD Date: 08/15/2024 Generated for Judy buckley/Yazmin/eTransmitting on: 09/01/2024 10:54 AM EST History and Physical [...]
--- OUTSIDE RECORDS SUMMARY | 2025-06-16 05:00 | XMS_ITS ---
Author Organization Tong Liao III, MD Address [address] [place] [address] [facility] [place] [address] Care Team Providers Care Image Consultant Name Role Phone Dr. Tong Liao [...] reviewed by provider) Interpretation: Performing Lab: Notes/Report: [address] [address] XRay Report Signed Patient: Miri Soler MR#: [id number] : 1985 Acct:[id number] Age/Sex: 39 / F ADM Date: 06/16/25 Loc: HO.VALARIE Attending Dr: Tong Liao MD Ordering Physician: Tong Liao MD Date of Service: 06/16/25 Procedure(s): XR lumbar spine 2-3V Accession Number(s): [id number] cc: Tong Liao MD Reason for Exam: [...] 06/16/25 1129 DD/ 1119 TD/TT: 06/16/25 112 Relief Mate: [address] [address] XRay Report Signed Patient: Miri Soler MR#: [id number] : 1985 Acct:[id number] Age/Sex: 39 / F ADM Date: 06/16/25 Loc: HO.XRAY Attending Dr: Tong Liao MD Ordering Physician: Tong Liao MD Date of Service: 06/16/25 Procedure(s): XR lum bar spine 2-3V Accession Number(s): [id number] cc: Tong Laio MD Reason for Exam: PAIN EXAMINATION: XR [...] 06/16/25 112 DD/ 1119 TD/TT: 06/16/25 112 Relief Mate: XR sacrum coccyx min 2V (Not yet reviewed by provider) Interpretation: Performing Lab: Notes/Report: [address] [address] XRay Report Signed Patient: Miri Soler MR#: [id number] : 1985 Acct:[id number] Age/Sex: 39 / F ADM Date: 06/16/25 Loc: NIYAH Attending Dr: Tong Liao MD Ordering Physician: Tong Liao MD Date of Service: 06/16/25 Procedure(s): XR sacrum coccyx min 2V Accession Number(s): [id number] cc: Tong Liao MD Reason for Exam: [...] by: Tong Guadalupe MD 06/16/2025 11:30 AM [facility] Dictated By: Tong Guadalupe MD Signed By: <Electronically signed by Tong Guadalupe MD in OV> 06/16/25 1130 DD/ 1121 TD/TT: 06/16/25 1124 Relief Mate: [place] [address] XRay Report Signed Patient: Miri Soler MR#: [id number] : 1985 Acct:[id number] Age/Sex: 39 / F ADM Date: 06/16/25 Loc: NIYAH Attending Dr: Tong Liao MD Ordering Physician: Tong Liao MD Date of Service: 06/16/25 Procedure(s): XR sac rum coccyx min 2V Accession Number(s): [id number] cc: Tong Liao MD Reason for Exam: [...] 06/16/25 1130 DD/ 1121 TD/TT: 06/16/25 1124 Relief Mate: Reason For Referral Reason evaluate and treatme nt for lumbar and cervical spine pain acute and chronic pain ` Diagnosis 1 Cervical pain (neck) (M54.2) Diagnosis 2 Lumbar back pain (M5 4.50) Referral Organization Tong Liao III, MD Referring Provider First Name Tong Referring Provider Last Name Keshawn Referring Provider Speciality Internal M edicine Referred Provider [facility] Referred Provider Specialty Physical Med icine General Notes Ozzy Sho [facility] 06/21 10:14:24 AM > ref/demo/ progress note/x rays faxed to [facility] pt called and made aware of this, zOzy Sho [facility] 06/30/2025 02:13:47 PM >I called [facility] they [...] Problem Status W/U Status Risk Notes Problem 154388986 Lumbar back pain (M54.50) Active confirmed The lumbosacral spine pain appears to be from degenerative causes. It does not radiate and there is no sciatica. I have ordered plain films of the lumbar spine and sacrum and referred her to rehabilitation medicine. She may benefit from physical therapy. Problem 27102199 Cervical pain (neck) (M54.2) Active confirmed The [...] Date Provider Diagnosis Tong Liao III, MD [address] [place] [address] [place] [address] 06/16/2025 Tong Liao Essential hypertensi on I10 [...] Provider Name:Tong Liao , 08/04/2025 09:45:00 AM, [address] [place] [address] [address], [place], [address], Provider Name:Tong Liao , 03/27/2026 09:30:00 AM, [address] [place] [address] [address], [place], [address], Progress Notes * Miri SOLERDOB:02/1986 (39 yo F)Acc No.[id number]:06/16/2025 Progress Notes Patient: Miri JAQUEZ Provider: Gretchen Liao MD :1985 A ge:39 Y S ex:Female Date:06/16/2025 Address:[address] [place] [address], [place], [id number] Subjective: * Chief Complaints: * C hronic low back painHypertensionHypothyroidismObesityMigraines * HPI: C OVID-19 Screening: She recently saw a neurologist at [facility] for her headaches and was sent [...] and work. She has been referred to [facility] for rehabilitation medicine and [...] History: f oreign body removed left wrist [id number] colposcopy and Cone biopsy of cervix for [...] no sisters. She has no children. Her can tender is in the process of testing her [...] children. 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 She is single but she is [...] true * Provider: Gretchen Liao MD Date: 08/17/2024 Generated for Massieli ina/Ceceliag/eTransmitting on: 09/01/2024 10:54 AM EST History and [...] Referred Provider Not es 06/16/2025 Tong Liao [facility] evaluate and treatment for lumbar and cervical spine pain acute and chronic pain `
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
[2025-07-01 09:58] VITALS: BP 122/80; PULSE 93; RESP 16; O2SAT 97; BMI 30.9
--- OUTSIDE RECORDS SUMMARY | 2025-07-01 10:54 | XMS_ITS | Clinical Summary ---
Author Organization [facility] Address [address] [place] [address] Care Team Providers Care Grant Writer Name Role Phone Tong Liao MD Primary Care Provider [phone] Allergies Active Allergy Reactions Criticality Noted Date [...] to complete this topic Insurance Care Teams Grant Writer Relationship Specialty Start Date End Date Tong Liao MD [address] [place] [id number] PCP - General 08/10/24
--- OUTSIDE RECORDS SUMMARY | 2025-07-01 10:55 | XMS_ITS | Patient Health Record ---
Author Organization Tong Liao III, MD Address [address] [place] [address] [place] [address] Care Team Providers Care Hydraulic Tester Name Role Phone Dr. Tong Liao III Primary Care Provider Allergies Allergen (clinical drug ingredient) Drug/Non Drug Allergy documented on EMR Reaction Allergy Type Onset Date Status emtricitabine / tenofovir disoproxil Truvada Unknown Drug Allergy Active metronidazole Flagyl Unknown Drug Allergy Act laurie Results Component Value Reference Range Notes XR lumbar spine 2-3V (Not ye t reviewed by provider) Interpretation: Performing Lab: Notes/Report: [address] [address] XRay Report Signed Patient: Miri Soler MR#: [id number] : 1985 Acct:[id number] Age/Sex: 39 / F ADM Date: 06/16/25 Loc: HO.VALARIE Attending Dr: Tong Liao MD Ordering Physician: Tong Liao MD Date of Service: 06/16/25 Procedure(s): XR lumbar spine 2-3V Accession Number(s): [id number] cc: Tong Liao MD Reason for Exam: [...] OV> 06/16/25 1129 DD/ 111 TD/TT: 06/16/251123 Broadcast Technician: [address] [address] XRay Report Signed Patient: Miri Soler MR#: [id number] : 1985 Acct:[id number] Age/Sex: 39 / F ADM Date: 06/16/25 Loc: HO.XRAY Attending Dr: Tong Liao MD Ordering Physician: Tong Liao MD Date of Service: 06/16/25 Procedure(s): XR lum bar spine 2-3V Accession Number(s): [id number] cc: Tong Liao MD Reason for Exam: [...] 06/16/25 1129 DD/ 111 TD/TT: 06/16/25 112 Broadcast Technician: XR sacrum coccyx min 2V (Not yet reviewed by provider) Interpretation: Performing Lab: Notes/Report: [address] [address] XRay Report Signed Patient: Miri Soler MR#: [id number] : 1985 Acct:[id number] Age/Sex: 39 / F ADM Date: 06/16/25 Loc: NIYAH Attending Dr: Tong Liao MD Ordering Physician: Tong Liao MD Date of Service: 06/16/25 Procedure(s): XR sacrum coccyx min 2V Accession Number(s): [id number] cc: Tong Liao MD Reason for Exam: [...] by: Tong Guadalupe MD 06/16/2025 11:30 AM [facility] Dictated By: Tong Guadalupe MD Signed By: <Electronically signed by Tong Guadalupe MD in OV> 06/16/25 1130 DD/ 1121 TD/TT: 06/16/25 1124 Broadcast Technician: [place] [address] XRay Report Signed Patient: Miri Soler MR#: [id number] : 1985 Acct:[id number] Age/Sex: 39 / F ADM Date: 06/16/25 Loc: NIYAH Attending Dr: Tong Liao MD Ordering Physician: Tong Liao MD Date of Service: 06/16/25 Procedure(s): XR sac rum coccyx min 2V Accession Number(s): [id number] cc: Tong Liao MD Reason for Exam: [...] by: Tong Guadalupe MD 06/16/2025 11:30 AM [facility] Dictated By: Tong Guadalupe MD Signed By: <Jess ramirez signed by Tong Guadalupe MD in OV> 06/16/25 1130 DD/ 1121 TD/TT: 06/16/25 1124 Broadcast Technician: MR head/brain wo con (Not ye t reviewed by provider) Interpretation: Performing Lab: Notes/Report: [address] [address] Magnetic Resonance Report Signed Patient: Miri Soler MR#: [id number] : 1985 Acct:[id number] Age/Sex: 39 / F ADM Date: 06/06/25 Loc: HO.MRI Attending Dr: Palma Lo CNP Ordering Physician: Palma Lo CNP Date of Service: 06/06/25 Procedure(s): MR head/brain wo con Accession Number(s): [id number] cc: Palma Lo CNP; Tong Liao MD [...] by: Tong Guadalupe MD 06/07/2025 07:02 AM [facility] Dictated By: Tong Guadalupe MD Signed By: <Electronically signed by Tong Guadalupe MD in OV> 06/07/25 0702 DD/ 1835 TD/TT: 06/06/25 185 Broadcast Technician: [place] [address] Magnetic Resonance Report Signed Patient: Miri Soler MR#: [id number] : 1985 Acct:[id number] Age/Sex: 39 / F ADM Date: 06/06/25 Loc: HO.MRI Attending Dr: Paulina Lo CNP Ordering Physician: Palma Lo CNP Date of Service: 06/06/25 Procedure(s): MR hea d/brain wo con Accession Number(s): [id number] cc: Paulina Lo CNP; Tong Liao MD [...] by: Tong Guadalupe MD 06/07/2025 07:02 AM [facility] Dictated By: Tong Guadalupe MD Signed By: <Jess ramirez signed by Tong Guadalupe MD in OV> 06/07/25 0702 DD/ 1835 TD/TT: 06/06/25 1851 Broadcast Technician: Reason For Referral Reason Evaluate and Treat Chronic Constant Migraine Diagnosis 1 Chronic migraine wit h aura without status migrainosus, not intractable (G43.E09) Referral Organization Tong Liao III, MD Referring Provider First Name Tong Referring Provider Last Name Keshawn Referring Provider Speciality Internal edicine Referred Provider Neurology [facility] Referred Provider Specialty Neurology General Notes D [...] Referring Provider Speciality Internal edicine Referred Provider [facility] Referred Provider Specialty Endocrinolog y General Notes DMariela 03/28/2025 11:05:37 AM > Faxed referral with progress note, Rene 03/30/2025 03:21:29 PM > [facility] Endocrine requesting most recent labs and [...] Internal edicine [facility] Special[facility] Physical Med ic[facility]ine General Notes Sho Preciado CMA 06/21 10:14:24 AM > ref/demo/ progress note/x rays faxed to [place] [facility] pt called and made aware of this, Sho Preciado SIGNALS OFFICER 06/30/2025 02:13:47 PM >I called [facility] they [...] Problem Status W/U Status Risk Notes Problem 9420927 Former smoker (Z87.891) Active confirmed We discussed her strategy for relapse prevention in times of stress and illness. She seems motivated not to smoke. Problem 638689223 Family history of breast cancer (Z80.3) Active confirmed She says the [facility] [employer] [facility] is in the process of ordering testing for BRCA1 and BRCA2 Problem 385872061 Obesity (BMI 30-39.9) (E66.9) Active confirmed She has lost 7 pounds in her body mass index is 32. We reviewed her weight loss strategy. We made a plan to lose weight at a rate of one half of a pound per week through a diet restricted in fat carbohydrates and sodium combined with regular physical activity. Problem 537413793 Acquired hypothyroidism (E03.9) Active confirmed She will now begin the 150 mcg dose. Thyroid function tests will be checked in the near future. Problem 56573879 Essential hypertension (I10) Active confirmed She is tolerating the losartan well and will return in the near future to check her blood pressure.Her systolic blood pressure normal. She will return to the office in near future to recheck this. If necessary her medications will be adjusted. Problem 73077702 Cervical pain (neck) (M54.2) Active confirmed The headaches appear to be originating in posterior musculature as a result of nerve impingement in the cervical spine. She has been referred to rehabilitation medicine. 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 Problem 841258812 Lumbar back pain (M54.50) Active confirmed The lumbosacra l spine pain appears to be from degenerative causes. It does not radiate and there is no sciatica. I have ordered plain films of the lumbar spine and sacrum and referred her to rehabilitation medicine. She may benefit from physical therapy. Problem 187877606 Chronic migraine with aura without status migrainosus, not intractable (G43.E09) Active confirmed The requested medication will be reviewed. Problem 933975498 Right thyroid nodule (E04.1) Active confirmed She [...] Provider Diagnosis Tong Liao III, MD [address] [place] [address] [place] [address] 08/25/2024 Tong Liao Essential hypertensi on I10 ; Chronic migraine with aura without status migrainosus, not intractable G43.E09 ; Acquired hypothyroidism E03.9 ; Obesity (BMI 30-39.9) E66.9 ; Former smoker Z87.891 and 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 Tong Liao III, MD [address] [place] [address] [place] [address] 11/19/2024 Tong Liao Essential hypertensi on I10 ; Right thyroid nodule E04.1 ; Acquired hypothyroidism E03.9 ; Obesity (BMI 30-39.9) E66.9 and Former smoker Z87.891 Tong Liao III, MD [address] [place] [address] [place] [address] 03/24/2025 Tong Keshawn Essential hypertensi on I10 ; Acquired hypothyroidism E03.9 ; Obesity (BMI 30-39.9) E66.9 ; Family history of breast cancer Z80.3 ; History of intravenous drug use in remission Z87.898 ; Former smoker Z87.891 and 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 Tong Liao III, MD [address] [place] [address] [place] [address] 06/16/2025 Tong Keshawn Essential hypertensi on I10 ; Lumbar back pain M54.50 ; Cervical pain (neck) M54.2 ; Obesity (BMI 30-39.9) E66.9 ; Former smoker Z87.891 ; Acquired hypothyroidism E03.9 ; Chronic migraine with aura without status migrainosus, not intractable G43.E09 and Right thyroid nodule E04.1 Tong Liao III, MD [address] [place] [address] [place] [address] 09/08/2024 Tong Liao III, MD [address] [place] [address] [place] [address] 11/17/2024 Tong Liao III, MD [address] [place] [address] [place] [address] 03/07/2025 Tong Liao Essential hypertensi on I10 [...] function tests are being managed by her sack lifter. She denies any constipation or diarrhea or [...] cancer (ICD-10 - Z80.3) She says the [facility] [employer] is in the process of ordering testing [...] ) 01/22/2023 PROFILE, RANDOM (COMPREHENSIVE METABOLIC ) 11/10/2019 PROFILE, RANDOM (COMPREHENSIVE METABOLIC ) 03/24/2025 PROFILE, RANDOM (COMPREHENSIVE METABOLIC ) 03/06/2023 PROFILE, RANDOM (COMPREHENSIVE METABOLIC ) 02/12/2023 PROFILE, RANDOM (COMPREHENSIVE METABOLIC ) 01/16/2022 LIPID PANEL 07/19/2020 LIPID PANEL 04/18/2020 LIPID PANEL 12/31/2019 FREE T4 (FT4) 01/03/2022 FREE T4 (FT4) 01/22/2023 FREE T4 (FT4) 07/19/2020 FREE T4 (FT4) 04/18/2020 FREE T4 (FT4) 11/10/2019 FREE T4 (FT4) 03/06/2023 FREE T4 (FT4) 02/12/2023 TSH (THYROID STIMULATING HORMONE) 2022 TSH (THYROID STIMULATING HORMONE) 2022 TSH (THYROID STIMULATING HORMONE) 2021 TSH (THYROID STIMULATING HORMONE) 2022 TSH (THYROID STIMULATING HORMONE) 2020 TSH (THYROID STIMULATING HORMONE) 2019 TSH (THYROID STIMULATING HORMONE) 2023 TSH (THYROID STIMULATING HORMONE) 2022 TSH (THYROID STIMULATING HORMONE) 2019 TSH (THYROID STIMULATING HORMONE) 2024 TSH (THYROID STIMULATING HORMONE) 2024 CBC w DIFF 11/10/2019 CBC w DIFF 03/24/2025 CBC w DIFF 11/19/2024 CBC w DIFF 01/16/2022 CBC w DIFF 03/06/2023 CBC w DIFF 02/12/2023 CBC w DIFF 01/03/2022 CBC w DIFF 01/22/2023 CBC w DIFF 07/19/2020 CBC w DIFF 04/18/2020 CBC w DIFF 12/31/2019 CBC w DIFF 06/11/2023 SED RATE (ESR) 11/10/2019 SED RATE (ESR) 11/17/2020 MONO TEST (HETEROPHILE AB) 01/16/2022 SPUTUM CULTURE AND GRAM STAIN 01/16/2022 XR BARIUM SWALLOW-ESOPHAGUS 04/22/2024 XR HAND RT 08/10/2019 CBC WITH AUTO DIFF 01/26/2024 Lipid Panel 01/26/2024 Lipid Panel 06/11/2023 Lipid Panel 11/19/2024 Lipid Panel 01/03/2022 Vitamin D 25-OH Total 01/03/2022 Free T4 (Free Thyroxine) 01/26/2024 Free T4 (Free Thyroxine) 06/11/2023 Free T4 (Free Thyroxine) 03/24/2025 Free T4 (Free Thyroxine) 11/19/2024 MR head/brain wo con 06/06/2025 XR lumbar spine 2-3V 06/16/2025 XR sacrum coccyx min 2V 06/16/2025 HIV Ab/Ag 01/26/2024 Next Appt Details Provider Name:Tong Coxrne , 08/04/2025 09:45:00 AM, [address] [place] [address] [address], [place], [address], Provider Name:Tong Power Keshawn , 03/27/2026 09:30:00 AM, [address] [place] [address] [address], [place], [address], Insurance Providers Payer Name Payer Address Payer Phone Subscriber Number Group Number Insured Name Patient Relationship to Insured Coverage Start Date Coverage End Date [facility] [address] [facility] [address] [facility] [place] [phone] [id number] Miri Max Self - patient is the [...] biopsy of cervix for abnormal Pap smear [id number] foreign body removed left wrist Hospitalization History Reason Date(Month/Year) No history
--- OUTSIDE RECORDS SUMMARY | 2025-07-01 10:56 | XMS_ITS | Clinical Summary ---
Author Organization [address] [facility] Address [address] [place] [address] Phone Care Team Providers Care Credit And Collections Representative Name Role Phone Tong Liao MD Primary Care Provider [phone] Social History Tobacco Use Types Packs/Day Years [...] CHEMISTRY METHOD 12/23/2024 12:12 PM EDT [facility] Comment:If confirmation of t [...] ORDERABLES Final Res ult Performing Organization Address [facility]/ZIP Co de Phone Number [facility] [address] [place] [address], [place] [phone] * HIV 1,2 antibody, p24 antigen with [...] ORDERABLES Final Res ult Performing Organization Address [facility] Co de Phone Number [facility] [address] [place] [address], [place] [phone] * HPV with reflex genotype (12/23/2024 12:00 AM EDT) HPV Negative Negative LAB MICROBIOLOGY METHOD 12/29/2024 3:28 PM EDT [facility] Brushing/Spatula Cervix uteri structure / Unknown 12/23/2024 12/28/2024 3:14 PM EDT us Darion Lance MD LAB MOLECULAR DIAGNOSTICS STEPHANIE NGUYEN Final Result Performing Organization Address [facility]/ZIP Co de Phone Number [facility] [address] [place] [address], [place] [phone] from Last 3 Months or Most Recently Relevant to Health Maintenance Insurance [facility] [place] [id number] [employer] [place] MEDICA[employer] ADVANTAGE Care Teams Credit And Collections Representative Relationship Specialty Start Date End Date Tong Liao MD PCP - General Oncology 01/20/25
--- OUTSIDE RECORDS SUMMARY | 2025-07-01 10:56 | XMS_ITS | Encounter Summary ---
Author Organization [facility] Address [address] [place] [address] Care Team Providers Care Sanding Machine Operator Or Tender Name Role Phone Tong Liao MD Primary Care Provider [phone] Encounter Details Date Type Department Care Team (Latest Contact Info) Description 12/23/[address] [facility] [address] [facility] [place] [address] Darion Lance MD [address] [address] Encounter for screening for infections [...] MOLECULAR DIAGNOSTICS METHOD 12/23/2024 3:43 PM EDT [facility] Chlamydia trachomatis PCR Negative Negative LAB MOLECULAR DIAGNOSTICS METHOD 12/23/2024 3:43 PM EDT [facility] Swab Cervix uteri structure / Unknown 12/23/2024 12/23/2024 12:44 PM EDT us Darion Lance MD LAB MICROBIOLOGY - GENERAL ORD ERABLES Final Result [facility] [address] [place] [address], documented in this encounter Visit Diagnoses Diagnosis Encounter for screening for infections with a predominantly sexual mode of transmission documented in this encounter Care Teams Sanding Machine Operator Or Tender Relationship Specialty Start Date End Date Tong Liao MD PCP - General Oncology 01/20/25 documented as of this encounter
--- OUTSIDE RECORDS SUMMARY | 2025-07-01 10:56 | XMS_ITS | Encounter Summary ---
Author Organization [facility] Address [address] [place] [address] Care Team Providers Care Pulverizing And Sifting Operator Name Role Phone Tong Liao MD Primary Care Provider [phone] Encounter Details Date Type Department Care Team (Latest Contact Info) Description 12/24/[address] [facility] [address] [facility] [place] [address] Darion Lance MD [address] [address] Encounter for gynecological examination (general) [...] LAB MICROBIOLOGY METHOD 12/29/2024 3:28 PM EDT [facility] Brushing/Spatula Cervix uteri structure / Unknown 12/23/2024 12/28/2024 3:14 PM EDT us Darion Lance MD LAB MOLECULAR DIAGNOSTICS STEPHANIE NGUYEN Final Result [facility] [address] [place] [address], * (ABNORMAL) Pap smear (12/23/2024 12:00 AM EDT) Interpretation Atypical squamous cells of undetermined significance(A) 12/28/2024 3:14 PM EDT [facility] at 1514 EDT General Categorization Epithelial cell abnormality, see interpretation 12/28/2024 3:14 PM EDT [facility] LMP 12/13/2024 12/28/2024 3:14 PM EDT [facility] Specimen Adequacy Satisfactory for evaluation, endocervical/tra nsformation zone component present 12/28/2024 3:14 PM EDT [facility] Pap Methodology Liquid Based Pap Test 12/28/2024 3:14 PM EDT [facility] Disclaimer The Pap test is a screening test which carries an inherent false negative rate. These test results should be correlated with the patient's clinical findings and history. This Pap test was processed using an automated screening system. Technical cytopathology services provided by [facility], at [address] [place] [id number] (CLIA # [id number]/Leona Leyva MD, Stack Attendant.) 12/28/2024 3:14 PM EDT [facility] Console Pap Interpretation Reported 12/28/2024 3:14 PM T [facility] Brushing/Spatula Cervix uteri structure / Unknown 12/23/2024 12/24/2024 7:16 AM EDT us Darion Lance MD LAB CYTOLOGY ORDERABLES Final Result [facility] ([facility]) [facility] [address] [place] [address], documented in this encounter Visit Diagnoses Diagnosis Encounter for gynecological examination (general) (routine) without abnormal findings documented in this encounter Care Teams Pulverizing And Sifting Operator Relationship Specialty Start Date End Date Tong Liao MD PCP - General Oncology 01/20/25 documented as of this encounter
== END 2025-07-01 10:56 | disposition home or self-care (01) ==
LOC: HO.HSM 09:52
PROVIDERS: PCP Internal Medicine Medical Oncology; Visit Provider Nurse Practitioner
DX: R51.9 Headache, unspecified (principal); G43.009 Migraine without aura, not intractable, without status migrainosus; G44.209 Tension-type headache, unspecified, not intractable; M25.512 Pain in left shoulder; M79.18 Myalgia, other site
CPT/HCPCS: 20553; 64405; 99499

== ENCOUNTER → 2025-07-01 09:52 | Outpatient (BNVA) | payer OTHER, SELFPAY | PROVIDERS: PCP Internal Medicine Medical Oncology; Visit Provider Nurse Practitioner | DX: M79.18 Myalgia, other site (principal); M25.512 Pain in left shoulder; G43.009 Migraine without aura, not intractable, without status migrainosus; G44.209 Tension-type headache, unspecified, not intractable | CPT/HCPCS: 20553; 64405; J0665 ==